=== PATIENT | male | born 1940 | race African-American/Black ===

== ENCOUNTER 2017-02-28 15:30 | Inpatient (IN) | payer MEDICAID, MEDICARE ==
[~2017-02-28] VITALS: Ht 170.2 cm; Wt 98.9 kg
[2017-02-28 15:40] VITALS: BP 148/101
--- NOTE | 2017-02-28 16:30 | Diagnostic Imaging Report ---
Indication: Altered mental status Technique: XRAY Chest 1v Comparison: None Findings: Heart is enlarged. There is extensive interstitial edema/opacification with patchy perihilar lateral airspace opacities. There is a small right pleural effusion. No definite pneumothorax. No acute osseous abnormality is seen. Impression: Cardiomegaly with interstitial and patchy bilateral airspace opacities and a small right pleural effusion. Findings may be related to CHF/fluid overload. Superimposed pneumonia should be excluded clinically.
[2017-02-28 16:31] LABS: ANION GAP 6 mmol/L (5-15); BLOOD UREA NITROGEN 41 mg/dL (7-18); CALCIUM 8.3 MG/DL (8.5-10.1); CARBON DIOXIDE 31 MMOL/L (21-32); CHLORIDE 104 MMOL/L (98-107); POTASSIUM 4.7 MMOL/L (3.5-5.1); SODIUM 141 MMOL/L (136-145)
[2017-02-28 16:32] LABS: BASOPHILS % (AUTO) 1.3 % (0.0-2.0); HEMOGLOBIN 12.8 G/DL (14.2-18.0); LYMPHOCYTES % (AUTO) 9.3 % (20.0-45.0); MEAN CORPUSCULAR VOLUME 97 FL (80-99); MONOCYTES % (AUTO) 6.5 % (1.0-10.0); NEUTROPHILS % (AUTO) 82.8 % (45.0-75.0); PLATELET COUNT 314 K/UL (150-450); RED BLOOD COUNT 4.34 M/UL (4.70-6.10); RED CELL DISTRIBUTION WIDTH 14.1 % (11.6-14.8); WHITE BLOOD COUNT 4.8 K/UL (4.8-10.8)
--- NOTE | 2017-02-28 16:33 | Emergency Room Report ---
History of Present Illness General Chief Complaint: Abnormal Labs Source: Patient, EMS Present Illness HPI [id number] BIBEMS from [facility] for "acting strange for 1 month" per residents. Hypoglycemia in the 50s on scene. Otherwise stable vitals. Patient continually jerking head to right size, twitch of whole body, but is redirectable and answering questions Denies headache, chest pain, SOB, abd pain, urinary complaints EMS doubts patient getting medication at [facility]. No Rx's with patient. States he went to doctor 3 days ago for "swelling in my feet." Doesnt know what other medical problems he has. HPI otherwise limited Allergies: Coded Allergies: No Known Allergies (Unverified , 02/28/17) Patient History Past Medical History: DM, CHF Past Surgical History: none Pertinent Family History: none Review of Systems All Other Systems: negative except mentioned in HPI Physical Exam Vital Signs Date Time Temp Pulse Resp B/P (MAP) Pulse Ox O2 Delivery O2 Flow Rate FiO2 02/28/17 15:24 98 18 148/101 98 Room Air Sp02 EP Interpretation: reviewed, normal General Appearance: normal inspection, well appearing, no apparent distress, alert, GCS 15, non-toxic, other - continuous body jerking Head: normocephalic, atraumatic Eyes: bilateral eye PERRL, bilateral eye EOMI ENT: normal ENT inspection, hearing grossly normal, normal pharynx, no angioedema, normal voice, TMs + canals normal, uvula midline, moist mucus membranes Neck: normal inspection, full range of motion, supple, thyroid normal, no meningismus, no bony tend Respiratory: normal inspection, lungs clear, normal breath sounds, no rhonchi, no respiratory distress, no retraction, no accessory muscle use, no wheezing, crackles, speaking full sentences, other - Bilateral crackles Cardiovascular #1: regular rate, rhythm, no edema, no JVD, normal capillary refill Gastrointestinal: normal inspection, normal bowel sounds, non tender, soft, no mass, no peritonitis, non-distended, no guarding, no hernia, no pulsatile mass Genitourinary: no CVA tenderness Musculoskeletal: normal inspection, back normal, normal range of motion, no calf tenderness, pelvis stable, Clark's Sign negative, other - 3+ pitting edema lower extremities Neurologic: normal inspection, alert, oriented x3, responsive, well flow operator III-XII nml as tested, motor strength/tone normal, cerebellar normal, normal gait, speech normal Psychiatric: normal inspection, judgement/insight normal, mood/affect normal, no suicidal/homicidal ideation, no delusions Skin: normal inspection, normal color, no rash Lymphatic: normal inspection, no adenopathy Procedures Critical Care Time Critical Care Time CC time 30 Critical care time endorsed for this patient for hypoglycemia, acute CHF, and ? AMS Critical care time includes review of laboratory tests, imaging, review of EMR, review of paperwork from SNF (if available), discussion with patient and family (if available), review of code status/POLS (if available). Critical care time also likely includes assessment of fluid status, stabilization of vital signs, selection and dosing of appropriate antibiotics, selection and dosing of Aspirin/Plavix/Heparin/Lovenox, discussion with PMD/ attending hospitalist/supply specialist. Critical care time does not include any procedures which are documented elsewhere in this EMR. Medical Decision Making Diagnostic Impression: Primary Impression: CHF (congestive heart failure) Qualified Codes: I50.9 - Heart failure, unspecified Additional Impression: Hypoglycemia ER Course VSS. Afebrile No focal neuro deficits to suggest CVA Hypoglycemia resolved with D50 and stayed WNL - unlikely to be on insulin or sulfonylurea Bilateral 3+ pedal edema and bilateral rales on exam CXR shows bilateral interstitial edema Rad review for "possible underling PNA" however afebrile, no cough, no URI symptoms, and no leuks on labs ECG with deep Q waves in V2-3. 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 Results EP Interpretation: yes Rate: 107 Rhythm: NSR, no PVC's, no ectopy Chest X-Ray Diagnostic Results Chest X-Ray Diagnostic Results : Chest X-Ray Ordered: Yes # of Views/Limited/Complete: 1 View Indication: Other - AMS EP Interpretation: Yes Interpretation: no consolidation, no pneumothorax, no acute cardiopulmonary disease, other - Bilateral pulm congestion Electronically Signed by: Dr Yary Lyles MD Last Vital Signs Date Time Temp Pulse Resp B/P (MAP) Pulse Ox O2 Delivery O2 Flow Rate FiO2 02/28/17 15:40 18 148/101 98 Room Air 02/28/17 15:24 98 Status: improved Disposition: ADMITTED INPATIENT Condition: Serious Referrals: NOT CHOSEN IPA/,REFERRING (PCP) YARY LYLES M.D. Feb 28, 2017 16:33
[2017-02-28 16:43] LABS: ALANINE AMINOTRANSFERASE 87 U/L (12-78); ALBUMIN 2.7 G/DL (3.4-5.0); ALBUMIN/GLOBULIN RATIO 0.5 (1.0-2.7); ALKALINE PHOSPHATASE 149 U/L (46-116); ASPARTATE AMINO TRANSFERASE 99 U/L (15-37); CKMB 43.3 NG/ML (0.0-3.6); CREATINE KINASE 663 U/L (26-308)
--- NOTE | 2017-02-28 16:52 | Diagnostic Imaging Report ---
Indication: Altered mental status Technique: Continuous helical CT scanning of the head was performed utilizing automated exposure control without intravenous contrast material. Axial and coronal reconstructions were obtained. Comparison: None CT dose: Total DLP 1411.27 mGycm; CTDI vol 70.38 mGy Findings: Limited, motion degraded exam, particularly images through the skull base, inferior frontal/temporal lobes and posterior fossa. There is no large intracranial hemorrhage, mass effect or midline shift. Ventricular, sulcal and cisternal prominence compatible with age-related atrophy. There is periventricular hypoattenuation, likely sequela of chronic microvascular ischemia. There is questionable area of vague hypoattenuation in the region of the right basal ganglia. This may be artifactual however ischemia is not entirely recommended. No depressed calvarial fracture seen. Mastoid air cells are clear. Mucosal thickening noted in the bilateral maxillary sinuses and some bilateral ethmoid air cells. Orbits grossly unremarkable.. Impression: Motion degraded exam, particularly limiting evaluation of the inferior frontal lobe, temporal lobe and posterior fossa. Acute pathologies in these regions not excluded. No large intracranial hemorrhage. No midline shift. Question vague area of hypoattenuation in the right basal ganglia which may be artifactual however ischemia is not excluded. Repeat head CT or MRI the brain recommended for better evaluation Atrophy and nonspecific periventricular hypoattenuation suggestive of chronic ischemic microvascular changes. The CT scanner at [facility] is accredited by the [employer] and the scans are performed using protocols designed to limit radiation exposure to as low as reasonably achievable to attain images of sufficient resolution adequate for diagnostic evaluation.
[2017-02-28 17:44] VITALS: BP 150/92
[2017-02-28 20:00] VITALS: BP 140/99
--- NOTE | 2017-02-28 23:10 | Infectious Diseases Prog Note ---
Assessment/Plan Problems: (1) Abscess of groin, left Assessment & Plan: will start vancomycin and cefepime empirically, recommend antifungal topical and wound care eval (2) Abscess of groin, right Assessment & Plan: management the same as above (3) HCAP (healthcare-associated pneumonia) Assessment & Plan: courtney start vancomycin and cefepime empirically , monitor CXR (4) CHF (congestive heart failure) Assessment & Plan: continue diuresis , monitor out put ant daily weight (5) Hypoglycemia Assessment & Plan: monitor glucose level avoid insulin for now Subjective Allergies: Coded Allergies: No Known Allergies (Unverified , 02/28/17) Objective Vital Signs Last 24 Hour Vital Signs Date Time Temp Pulse Resp B/P (MAP) Pulse Ox O2 Delivery O2 Flow Rate FiO2 02/28/17 21:23 87 20 100 Facial 30 02/28/17 20:00 30 02/28/17 20:00 97.6 96 20 140/99 98 Bi-pap 30 02/28/17 19:42 96 02/28/17 18:30 92 20 99 Facial 30 02/28/17 18:20 97.8 93 21 150/92 100 Bi-pap 30 02/28/17 17:44 97.8 93 21 150/92 98 Bi-pap 30 02/28/17 17:05 101 21 Bi-pap 30 02/28/17 17:05 21 98 Bi-pap 30 02/28/17 16:50 101 21 99 Facial 30 02/28/17 15:40 18 148/101 98 Room Air 02/28/17 15:24 98 18 148/101 98 Room Air Height (Feet): 5 Height (Inches): 6.00 Weight (Pounds): 170 Laboratory Tests Test 02/28/17 15:45 White Blood Count 4.8 K/UL (4.8-10.8) Red Blood Count 4.34 M/UL (4.70-6.10) L Hemoglobin 12.8 G/DL (14.2-18.0) L Hematocrit 42.0 % (42.0-52.0) Mean Corpuscular Volume 97 FL (80-99) Mean Corpuscular Hemoglobin 29.4 PG (27.0-31.0) Mean Corpuscular Hemoglobin Concent 30.4 G/DL (32.0-36.0) L Red Cell Distribution Width 14.1 % (11.6-14.8) Platelet Count 314 K/UL (150-450) Mean Platelet Volume 7.0 FL (6.5-10.1) Neutrophils (%) (Auto) 82.8 % (45.0-75.0) H Lymphocytes (%) (Auto) 9.3 % (20.0-45.0) L Monocytes (%) (Auto) 6.5 % (1.0-10.0) Eosinophils (%) (Auto) 0.0 % (0.0-3.0) Basophils (%) (Auto) 1.3 % (0.0-2.0) Sodium Level 141 MMOL/L (136-145) Potassium Level 4.7 MMOL/L (3.5-5.1) Chloride Level 104 MMOL/L (98-107) Carbon Dioxide Level 31 MMOL/L (21-32) Anion Gap 6 mmol/L (5-15) Blood Urea Nitrogen 41 mg/dL (7-18) H Creatinine 1.0 MG/DL (0.55-1.30) Estimat Glomerular Filtration Rate mL/min (>60) Glucose Level 57 MG/DL (74-106) L Calcium Level 8.3 MG/DL (8.5-10.1) L Total Bilirubin 1.0 MG/DL (0.2-1.0) Aspartate Amino Transf (AST/SGOT) 99 U/L (15-37) H Alanine Aminotransferase (ALT/SGPT) 87 U/L (12-78) H Alkaline Phosphatase 149 U/L (46-116) H Total Creatine Kinase 663 U/L (26-308) H Creatine Kinase MB 43.3 NG/ML (0.0-3.6) H Creatine Kinase MB Relative Index 6.5 Troponin I 0.298 ng/mL (0.000-0.056) Total Protein 8.1 G/DL (6.4-8.2) Albumin 2.7 G/DL (3.4-5.0) L Globulin 5.4 g/dL Albumin/Globulin Ratio 0.5 (1.0-2.7) L Current Medications Medications (Trade) Dose Ordered Sig/Vicky Route PRN Reason Start Time Stop Time Status Last Admin Dose Admin Lorazepam (Ativan 2mg/ml 1ml) 1 mg Q4H PRN IV For Anxiety 02/28/17 22:00 03/07/17 21:59 Mike Nguyen M.D. Feb 28, 2017 23:10
[2017-03-01] VITALS: BP 145/98
--- NOTE | 2017-03-01 00:04 | History and Physical ---
History of Present Illness General Date patient seen: Mar 01, 2017 Reason for Hospitalization: Abnormal Labs Present Illness Allergies: Coded Allergies: No Known Allergies (Unverified , 02/28/17) Patient History Healthcare decision maker N Resuscitation status Advanced Directive on File Physical Exam Last 24 Hour Vital Signs Date Time Temp Pulse Resp B/P (MAP) Pulse Ox O2 Delivery O2 Flow Rate FiO2 02/28/17 23:22 91 18 98 02/28/17 21:23 87 20 100 Facial 30 02/28/17 20:00 30 02/28/17 20:00 97.6 96 20 140/99 98 Bi-pap 30 02/28/17 19:42 96 02/28/17 18:30 92 20 99 Facial 30 02/28/17 18:20 97.8 93 21 150/92 100 Bi-pap 30 02/28/17 17:44 97.8 93 21 150/92 98 Bi-pap 30 02/28/17 17:05 101 21 Bi-pap 30 02/28/17 17:05 21 98 Bi-pap 30 02/28/17 16:50 101 21 99 Facial 30 02/28/17 15:40 18 148/101 98 Room Air 02/28/17 15:24 98 18 148/101 98 Room Air Laboratory Tests Test 02/28/17 15:45 02/28/17 23:15 White Blood Count 4.8 K/UL (4.8-10.8) Red Blood Count 4.34 M/UL (4.70-6.10) L Hemoglobin 12.8 G/DL (14.2-18.0) L Hematocrit 42.0 % (42.0-52.0) Mean Corpuscular Volume 97 FL (80-99) Mean Corpuscular Hemoglobin 29.4 PG (27.0-31.0) Mean Corpuscular Hemoglobin Concent 30.4 G/DL (32.0-36.0) L Red Cell Distribution Width 14.1 % (11.6-14.8) Platelet Count 314 K/UL (150-450) Mean Platelet Volume 7.0 FL (6.5-10.1) Neutrophils (%) (Auto) 82.8 % (45.0-75.0) H Lymphocytes (%) (Auto) 9.3 % (20.0-45.0) L Monocytes (%) (Auto) 6.5 % (1.0-10.0) Eosinophils (%) (Auto) 0.0 % (0.0-3.0) Basophils (%) (Auto) 1.3 % (0.0-2.0) Sodium Level 141 MMOL/L (136-145) Potassium Level 4.7 MMOL/L (3.5-5.1) Chloride Level 104 MMOL/L (98-107) Carbon Dioxide Level 31 MMOL/L (21-32) Anion Gap 6 mmol/L (5-15) Blood Urea Nitrogen 41 mg/dL (7-18) H Creatinine 1.0 MG/DL (0.55-1.30) Estimat Glomerular Filtration Rate mL/min (>60) Glucose Level 57 MG/DL (74-106) L Calcium Level 8.3 MG/DL (8.5-10.1) L Total Bilirubin 1.0 MG/DL (0.2-1.0) Aspartate Amino Transf (AST/SGOT) 99 U/L (15-37) H Alanine Aminotransferase (ALT/SGPT) 87 U/L (12-78) H Alkaline Phosphatase 149 U/L (46-116) H Total Creatine Kinase 663 U/L (26-308) H Creatine Kinase MB 43.3 NG/ML (0.0-3.6) H Creatine Kinase MB Relative Index 6.5 Troponin I 0.298 ng/mL (0.000-0.056) Total Protein 8.1 G/DL (6.4-8.2) Albumin 2.7 G/DL (3.4-5.0) L Globulin 5.4 g/dL Albumin/Globulin Ratio 0.5 (1.0-2.7) L Urine Color Pending Urine Appearance Pending Urine pH Pending Urine Specific [place] Pending Urine Protein Pending Urine Glucose (UA) Pending Urine Ketones Pending Urine Occult Blood Pending Urine Nitrite Pending Urine Bilirubin Pending Urine Urobilinogen Pending Urine Leukocyte Esterase Pending Urine Opiates Screen Pending Urine Barbiturates Screen Pending Phencyclidine (PCP) Screen Pending Urine Amphetamines Screen Pending Urine Benzodiazepines Screen Pending Urine Cocaine Screen Pending Urine Marijuana (THC) Screen Pending Height (Feet): 5 Height (Inches): 6.00 Weight (Pounds): 170 Medications Current Medications Medications (Trade) Dose Ordered Sig/Vicky Route PRN Reason Start Time Stop Time Status Last Admin Dose Admin Cefepime HCl 2 gm/ Dextrose 55 ml @ 110 mls/hr EVERY 12 HOURS IVPB 02/28/17 23:00 03/07/17 22:59 Lorazepam (Ativan 2mg/ml 1ml) 1 mg Q4H PRN IV For Anxiety 02/28/17 22:00 03/07/17 21:59 Vancomycin HCl (Vanco rx to dose) 1 ea DAILY PRN MISC Per rx protocol 02/28/17 23:00 03/30/17 22:59 Vancomycin HCl/ Dextrose 250 ml @ 125 mls/hr Q24H IVPB 02/28/17 01:00 03/05/17 00:59 JEYSON NAVAS Mar 01, 2017 00:03
[2017-03-01 00:08] LABS: APPEARANCE,URINE CLEAR; BILIRUBIN, URINE NEGATIVE (NEGATIVE); COLOR,URINE PALE YELLOW; GLUCOSE, URINE (UA) NEGATIVE (NEGATIVE); KETONES,URINE NEGATIVE (NEGATIVE); LEUKOCYTE ESTERASE ,URINE 2+ (NEGATIVE); NITRITE,URINE NEGATIVE (NEGATIVE); PH,URINE 5 (4.5-8.0); PROTEIN,URINE NEGATIVE (NEGATIVE); UROBILINOGEN,URINE NORMAL MG/DL (0.0-1.0)
[2017-03-01] MEDS ORDERED: Cefepime 2gm ONE (00:16)
[2017-03-01] MEDS: Cefepime HCl 2 GM in D5W 55 ML IVPB SCH ×3 (00:37→21:28)
[2017-03-01] MEDS: Vancomycin 1500mg IVPB SCH ×2 (02:12→02:13)
[2017-03-01 04:00] VITALS: BP 125/81
[2017-03-01 07:28] LABS: HEMATOCRIT 35.6 % (42.0-52.0); HEMOGLOBIN 11.3 G/DL (14.2-18.0); MEAN CORPUSCULAR VOLUME 97 FL (80-99); PLATELET COUNT 269 K/UL (150-450); RED BLOOD COUNT 3.68 M/UL (4.70-6.10); RED CELL DISTRIBUTION WIDTH 14.2 % (11.6-14.8); WHITE BLOOD COUNT 5.2 K/UL (4.8-10.8)
[2017-03-01 07:35] LABS: ANION GAP 2 mmol/L (5-15); BLOOD UREA NITROGEN 33 mg/dL (7-18); CALCIUM 7.3 MG/DL (8.5-10.1); CARBON DIOXIDE 32 MMOL/L (21-32); CHLORIDE 106 MMOL/L (98-107); PHOSPHORUS 4.3 MG/DL (2.5-4.9); POTASSIUM 4.5 MMOL/L (3.5-5.1); SODIUM 140 MMOL/L (136-145)
[2017-03-01 08:30] VITALS: BP_SYST 122; BP_SYST 127; BP_DIAS 82; BP_DIAS 84
[2017-03-01 12:00] VITALS: BP 141/92
[2017-03-01] MEDS: Aspirin Baby 81mg ORAL SCH (13:19)
--- NOTE | 2017-03-01 13:27 | Neurology Progress Note ---
Objective Physical Exam Last Vital Signs Date Time Temp Pulse Resp B/P (MAP) Pulse Ox O2 Delivery O2 Flow Rate FiO2 03/01/17 12:00 98 03/01/17 08:30 98.0 20 127/82 95 Room Air 03/01/17 05:07 30 Laboratory Tests Test 02/28/17 15:45 02/28/17 23:15 03/01/17 05:35 03/01/17 07:38 White Blood Count 4.8 K/UL (4.8-10.8) 5.2 K/UL (4.8-10.8) Red Blood Count 4.34 M/UL (4.70-6.10) L 3.68 M/UL (4.70-6.10) L Hemoglobin 12.8 G/DL (14.2-18.0) L 11.3 G/DL (14.2-18.0) L Hematocrit 42.0 % (42.0-52.0) 35.6 % (42.0-52.0) L Mean Corpuscular Volume 97 FL (80-99) 97 FL (80-99) Mean Corpuscular Hemoglobin 29.4 PG (27.0-31.0) 30.6 PG (27.0-31.0) Mean Corpuscular Hemoglobin Concent 30.4 G/DL (32.0-36.0) L 31.7 G/DL (32.0-36.0) L Red Cell Distribution Width 14.1 % (11.6-14.8) 14.2 % (11.6-14.8) Platelet Count 314 K/UL (150-450) 269 K/UL (150-450) Mean Platelet Volume 7.0 FL (6.5-10.1) 8.1 FL (6.5-10.1) Neutrophils (%) (Auto) 82.8 % (45.0-75.0) H % (45.0-75.0) Lymphocytes (%) (Auto) 9.3 % (20.0-45.0) L % (20.0-45.0) Monocytes (%) (Auto) 6.5 % (1.0-10.0) % (1.0-10.0) Eosinophils (%) (Auto) 0.0 % (0.0-3.0) % (0.0-3.0) Basophils (%) (Auto) 1.3 % (0.0-2.0) % (0.0-2.0) Sodium Level 141 MMOL/L (136-145) 140 MMOL/L (136-145) Potassium Level 4.7 MMOL/L (3.5-5.1) 4.5 MMOL/L (3.5-5.1) Chloride Level 104 MMOL/L (98-107) 106 MMOL/L (98-107) Carbon Dioxide Level 31 MMOL/L (21-32) 32 MMOL/L (21-32) Anion Gap 6 mmol/L (5-15) 2 mmol/L (5-15) L Blood Urea Nitrogen 41 mg/dL (7-18) H 33 mg/dL (7-18) H Creatinine 1.0 MG/DL (0.55-1.30) 1.0 MG/DL (0.55-1.30) Estimat Glomerular Filtration Rate mL/min (>60) mL/min (>60) Glucose Level 57 MG/DL (74-106) L 266 MG/DL (74-106) #H Calcium Level 8.3 MG/DL (8.5-10.1) L 7.3 MG/DL (8.5-10.1) L Total Bilirubin 1.0 MG/DL (0.2-1.0) Aspartate Amino Transf (AST/SGOT) 99 U/L (15-37) H Alanine Aminotransferase (ALT/SGPT) 87 U/L (12-78) H Alkaline Phosphatase 149 U/L (46-116) H Total Creatine Kinase 663 U/L (26-308) H Creatine Kinase MB 43.3 NG/ML (0.0-3.6) H Creatine Kinase MB Relative Index 6.5 Troponin I 0.298 ng/mL (0.000-0.056) 0.226 ng/mL (0.000-0.056) Total Protein 8.1 G/DL (6.4-8.2) Albumin 2.7 G/DL (3.4-5.0) L Globulin 5.4 g/dL Albumin/Globulin Ratio 0.5 (1.0-2.7) L Urine Color Pale yellow Urine Appearance Clear Urine pH 5 (4.5-8.0) Urine Specific [place] 1.015 (1.005-1.035) Urine Protein Negative (NEGATIVE) Urine Glucose (UA) Negative (NEGATIVE) Urine Ketones Negative (NEGATIVE) Urine Occult Blood 2+ (NEGATIVE) H Urine Nitrite Negative (NEGATIVE) Urine Bilirubin Negative (NEGATIVE) Urine Urobilinogen Normal MG/DL (0.0-1.0) Urine Leukocyte Esterase 2+ (NEGATIVE) H Urine RBC 2-4 /HPF (0 - 0) H Urine WBC 2-4 /HPF (0 - 0) Urine Squamous Epithelial Cells Occasional /LPF Urine Bacteria Occasional /HPF (NONE) Urine Opiates Screen Negative (NEGATIVE) Urine Barbiturates Screen Negative (NEGATIVE) Phencyclidine (PCP) Screen Negative (NEGATIVE) Urine Amphetamines Screen Negative (NEGATIVE) Urine Benzodiazepines Screen Negative (NEGATIVE) Urine Cocaine Screen Negative (NEGATIVE) Urine Marijuana (THC) Screen Negative (NEGATIVE) Differential Total Cells Counted 100 Neutrophils % (Manual) 85 % (45-75) H Lymphocytes % (Manual) 8 % (20-45) L Monocytes % (Manual) 7 % (1-10) Eosinophils % (Manual) 0 % (0-3) Basophils % (Manual) 0 % (0-2) Band Neutrophils 0 % (0-8) Platelet Estimate Adequate Platelet Morphology Normal Hypochromasia 1+ Anisocytosis 1+ Phosphorus Level 4.3 MG/DL (2.5-4.9) Magnesium Level 1.8 MG/DL (1.8-2.4) Arterial Blood pH 7.420 (7.350-7.450) Arterial Blood Partial Pressure CO2 46.8 mmHg (35.0-45.0) H Arterial Blood Partial Pressure O2 75.5 mmHg (75.0-100.0) Arterial Blood HCO3 29.7 mmol/L (22.0-26.0) H Arterial Blood Oxygen Saturation 94.7 % (92.0-98.0) Arterial Blood Base Excess 4.5 Saul Test Positive Impression/Recommendations Recommendations #[id number] FANNIE YUNG Mar 01, 2017 13:27
--- NOTE | 2017-03-01 13:43 | Infectious Diseases Prog Note ---
Assessment/Plan Problems: (1) Abscess of groin, left Assessment & Plan: continue vancomycin and cefepime empirically, with antifungal topical , will add metronidazol to cover anaerobes , continue local wound care , as per wound care service (2) Abscess of groin, right Assessment & Plan: management the same as above (3) HCAP (healthcare-associated pneumonia) Assessment & Plan: on vancomycin and cefepime empirically , monitor CXR (4) CHF (congestive heart failure) Assessment & Plan: continue diuresis , monitor out put ant daily weight (5) Hypoglycemia Assessment & Plan: monitor glucose level avoid insulin for now Subjective Constitutional: Reports: no symptoms HEENT: Reports: no symptoms Respiratory: Reports: productive cough Breasts: Reports: no symptoms Cardiovascular: Reports: no symptoms Gastrointestinal/Abdominal: Reports: no symptoms Genitourinary: Reports: no symptoms Neurologic: Reports: no symptoms, other - jerking movements of the head and body Psychiatric: Reports: no symptoms Skin: Reports: rash, ulcer, other - abscesses on both groins Endocrine: Reports: no symptoms Hematologic: Reports: no symptoms Allergies: Coded Allergies: No Known Allergies (Unverified , 02/28/17) Objective Vital Signs Last 24 Hour Vital Signs Date Time Temp Pulse Resp B/P (MAP) Pulse Ox O2 Delivery O2 Flow Rate FiO2 03/01/17 12:00 98 03/01/17 08:30 98.0 98 20 127/82 95 Room Air 03/01/17 08:05 95 03/01/17 05:07 90 20 100 Facial 30 03/01/17 04:00 97.8 89 20 125/81 99 Bi-pap 30 03/01/17 04:00 88 03/01/17 04:00 30 03/01/17 02:58 90 16 100 Facial 30 03/01/17 01:17 90 17 100 Facial 30 03/01/17 00:00 97.3 91 20 145/98 98 Bi-pap 30 03/01/17 00:00 92 02/28/17 23:22 91 18 98 02/28/17 21:23 87 20 100 Facial 30 02/28/17 20:00 30 02/28/17 20:00 97.6 96 20 140/99 98 Bi-pap 30 02/28/17 19:42 96 02/28/17 18:30 92 20 99 Facial 30 02/28/17 18:20 97.8 93 21 150/92 100 Bi-pap 30 02/28/17 17:44 97.8 93 21 150/92 98 Bi-pap 30 02/28/17 17:05 101 21 Bi-pap 30 02/28/17 17:05 21 98 Bi-pap 30 02/28/17 16:50 101 21 99 Facial 30 02/28/17 15:40 18 148/101 98 Room Air 02/28/17 15:24 98 18 148/101 98 Room Air Height (Feet): 5 Height (Inches): 7.00 Weight (Pounds): 171 General Appearance: WD/WN, no acute distress HEENT: normocephalic, atraumatic, anicteric, mucous membranes moist, PERRL, EOMI, pharynx normal Respiratory/Chest: chest wall non-tender, no respiratory distress, no accessory muscle use, decreased breath sounds, crackles/rales Cardiovascular: normal peripheral pulses, normal rate, regular rhythm, no gallop/murmur, no JVD Abdomen: normal bowel sounds, soft, non tender, no organomegaly, non distended , no mass, no scars Extremities: no cyanosis, no clubbing Skin: no rash, no lesions, no ulcers Neurologic/Psychiatric: alert, responsive Laboratory Tests Test 02/28/17 15:45 02/28/17 23:15 03/01/17 05:35 03/01/17 07:38 White Blood Count 4.8 K/UL (4.8-10.8) 5.2 K/UL (4.8-10.8) Red Blood Count 4.34 M/UL (4.70-6.10) L 3.68 M/UL (4.70-6.10) L Hemoglobin 12.8 G/DL (14.2-18.0) L 11.3 G/DL (14.2-18.0) L Hematocrit 42.0 % (42.0-52.0) 35.6 % (42.0-52.0) L Mean Corpuscular Volume 97 FL (80-99) 97 FL (80-99) Mean Corpuscular Hemoglobin 29.4 PG (27.0-31.0) 30.6 PG (27.0-31.0) Mean Corpuscular Hemoglobin Concent 30.4 G/DL (32.0-36.0) L 31.7 G/DL (32.0-36.0) L Red Cell Distribution Width 14.1 % (11.6-14.8) 14.2 % (11.6-14.8) Platelet Count 314 K/UL (150-450) 269 K/UL (150-450) Mean Platelet Volume 7.0 FL (6.5-10.1) 8.1 FL (6.5-10.1) Neutrophils (%) (Auto) 82.8 % (45.0-75.0) H % (45.0-75.0) Lymphocytes (%) (Auto) 9.3 % (20.0-45.0) L % (20.0-45.0) Monocytes (%) (Auto) 6.5 % (1.0-10.0) % (1.0-10.0) Eosinophils (%) (Auto) 0.0 % (0.0-3.0) % (0.0-3.0) Basophils (%) (Auto) 1.3 % (0.0-2.0) % (0.0-2.0) Sodium Level 141 MMOL/L (136-145) 140 MMOL/L (136-145) Potassium Level 4.7 MMOL/L (3.5-5.1) 4.5 MMOL/L (3.5-5.1) Chloride Level 104 MMOL/L (98-107) 106 MMOL/L (98-107) Carbon Dioxide Level 31 MMOL/L (21-32) 32 MMOL/L (21-32) Anion Gap 6 mmol/L (5-15) 2 mmol/L (5-15) L Blood Urea Nitrogen 41 mg/dL (7-18) H 33 mg/dL (7-18) H Creatinine 1.0 MG/DL (0.55-1.30) 1.0 MG/DL (0.55-1.30) Estimat Glomerular Filtration Rate mL/min (>60) mL/min (>60) Glucose Level 57 MG/DL (74-106) L 266 MG/DL (74-106) #H Calcium Level 8.3 MG/DL (8.5-10.1) L 7.3 MG/DL (8.5-10.1) L Total Bilirubin 1.0 MG/DL (0.2-1.0) Aspartate Amino Transf (AST/SGOT) 99 U/L (15-37) H Alanine Aminotransferase (ALT/SGPT) 87 U/L (12-78) H Alkaline Phosphatase 149 U/L (46-116) H Total Creatine Kinase 663 U/L (26-308) H Creatine Kinase MB 43.3 NG/ML (0.0-3.6) H Creatine Kinase MB Relative Index 6.5 Troponin I 0.298 ng/mL (0.000-0.056) 0.226 ng/mL (0.000-0.056) Total Protein 8.1 G/DL (6.4-8.2) Albumin 2.7 G/DL (3.4-5.0) L Globulin 5.4 g/dL Albumin/Globulin Ratio 0.5 (1.0-2.7) L Urine Color Pale yellow Urine Appearance Clear Urine pH 5 (4.5-8.0) Urine Specific [place] 1.015 (1.005-1.035) Urine Protein Negative (NEGATIVE) Urine Glucose (UA) Negative (NEGATIVE) Urine Ketones Negative (NEGATIVE) Urine Occult Blood 2+ (NEGATIVE) H Urine Nitrite Negative (NEGATIVE) Urine Bilirubin Negative (NEGATIVE) Urine Urobilinogen Normal MG/DL (0.0-1.0) Urine Leukocyte Esterase 2+ (NEGATIVE) H Urine RBC 2-4 /HPF (0 - 0) H Urine WBC 2-4 /HPF (0 - 0) Urine Squamous Epithelial Cells Occasional /LPF Urine Bacteria Occasional /HPF (NONE) Urine Opiates Screen Negative (NEGATIVE) Urine Barbiturates Screen Negative (NEGATIVE) Phencyclidine (PCP) Screen Negative (NEGATIVE) Urine Amphetamines Screen Negative (NEGATIVE) Urine Benzodiazepines Screen Negative (NEGATIVE) Urine Cocaine Screen Negative (NEGATIVE) Urine Marijuana (THC) Screen Negative (NEGATIVE) Differential Total Cells Counted 100 Neutrophils % (Manual) 85 % (45-75) H Lymphocytes % (Manual) 8 % (20-45) L Monocytes % (Manual) 7 % (1-10) Eosinophils % (Manual) 0 % (0-3) Basophils % (Manual) 0 % (0-2) Band Neutrophils 0 % (0-8) Platelet Estimate Adequate Platelet Morphology Normal Hypochromasia 1+ Anisocytosis 1+ Phosphorus Level 4.3 MG/DL (2.5-4.9) Magnesium Level 1.8 MG/DL (1.8-2.4) Arterial Blood pH 7.420 (7.350-7.450) Arterial Blood Partial Pressure CO2 46.8 mmHg (35.0-45.0) H Arterial Blood Partial Pressure O2 75.5 mmHg (75.0-100.0) Arterial Blood HCO3 29.7 mmol/L (22.0-26.0) H Arterial Blood Oxygen Saturation 94.7 % (92.0-98.0) Arterial Blood Base Excess 4.5 Saul Test Positive Current Medications Medications (Trade) Dose Ordered Sig/Vicky Route PRN Reason Start Time Stop Time Status Last Admin Dose Admin Aspirin (ASA) 81 mg DAILY ORAL 03/01/17 13:15 03/31/17 13:14 03/01/17 13:19 Cefepime HCl 2 gm/ Dextrose 55 ml @ 110 mls/hr EVERY 12 HOURS IVPB 02/28/17 23:00 03/07/17 22:59 03/01/17 09:04 Furosemide (Lasix) 40 mg EVERY 12 HOURS IV 03/01/17 13:15 03/31/17 13:14 03/01/17 13:20 Lorazepam (Ativan 2mg/ml 1ml) 1 mg Q4H PRN IV For Anxiety 02/28/17 22:00 03/07/17 21:59 Vancomycin HCl (Vanco rx to dose) 1 ea DAILY PRN MISC Per rx protocol 02/28/17 23:00 03/30/17 22:59 Vancomycin HCl/ Dextrose 250 ml @ 125 mls/hr Q24H IVPB 02/28/17 01:00 03/05/17 00:59 03/01/17 02:13 Mike Nguyen M.D. Mar 01, 2017 13:43
[2017-03-01] MEDS: metroNIDAZOLE 500mg tab ORAL SCH ×2 (14:05→21:28)
[2017-03-01 16:00] VITALS: BP 121/80
--- NOTE | 2017-03-01 17:15 | Progress Note ---
DATE: 03/01/2017 CARDIOLOGY PROGRESS NOTE SUBJECTIVE: The patient is difficult to understand due to his stutter, but he denies any chest pain. He states he has no lung problems. He has been on BiPAP, however, overnight. He does have coughing and congestion. OBJECTIVE: VITAL SIGNS: Blood pressure 125/81, pulse 89, respirations 20. LUNGS: Coarse breath sounds with rhonchi and rales at the bases bilaterally. HEART: Regular rhythm and rate. Normal S1 and S2 with a 1/6 systolic heart murmur at the lower left sternal border. ABDOMEN: Soft. EXTREMITIES: With 3+ edema. LABORATORY AND DIAGNOSTIC DATA: Chest x-ray on admission revealed pulmonary venous congestion with small pleural effusions. Troponin level on admission yesterday was 0.298, now at 0.226. IMPRESSION: 1. Acute myocardial ischemia. 2. 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 3. Chronic obstructive pulmonary disease. 4. Moderate protein-calorie malnutrition. 5. Prerenal azotemia. 6. Metabolic encephalopathy. 7. Right bilateral groin abscesses. 8. Hypertensive heart disease now with better blood pressure control. PLAN: 1. Antimicrobials. 2. Bronchodilators. 3. Skin care. 4. IV diuretic therapy. 5. Echocardiogram for assessment of left ventricular function. 6. Titration of antihypertensive regimen based on clinical parameters. 7. Continue aspirin prophylaxis. 8. Reassess for antianginal therapy based on clinical parameters. Due to lung disease, we will be avoiding beta-blockers at this time. Rehan Grove M.D. DR: ROCAEL JOB#: [id number] CC:
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
[2017-03-01 20:00] VITALS: BP 140/77
--- NOTE | 2017-03-01 20:15 | Consultation ---
DATE OF CONSULTATION: 03/01/2017 INFECTIOUS DISEASES CONSULTATION CONSULTING PHYSICIAN: Mike Nguyen M.D. ATTENDING/REQUESTING PHYSICIAN: Phillip Galaviz M.D. REASON FOR CONSULTATION: Bilateral groin skin infection with abscesses and penile infection with pneumonia, recommendation for antibiotics treatment and further management. HISTORY OF PRESENT ILLNESS: The patient is a 76-year-old male, who lives at [facility] for a while and was brought in to [facility] for acting strange for one month per the resident over there. The patient was found to be hypoglycemic with blood glucose in the range of 50. He also had continuously jerking head movement to the right side and twitching of whole body, so he was sent to the emergency room for further evaluation and management. The patient had no symptom with headache, chest pain, shortness of breath, abdominal pain, or any urinary complaint. He was not getting any medication treatment at [facility]. The patient was found to have bilateral groin severe skin inflammation, infection, and possible abscesses in both sides and penile infection. His chest x-ray showed bilateral infiltration suspicious for superimposed pneumonia, so he received IV antibiotics in the emergency room and I was consulted by the primary provider for antibiotics treatment and further management. As of note, the patient is poor historian, cannot provide good history in detail. History was mainly obtained from the medical record and nursing staff. PAST MEDICAL HISTORY: Significant for diabetes and congestive heart failure. PAST SURGICAL HISTORY: Unknown. MEDICATIONS: The patient received vancomycin, Lasix, and aspirin in the emergency room. ALLERGIES: No known drug allergy. SOCIAL HISTORY: The patient lives at [facility]. No recent drugs, tobacco, or alcohol. FAMILY HISTORY: Unable to obtain. REVIEW OF SYSTEMS: Unable to obtain at this point. The patient is very poor historian. PHYSICAL EXAMINATION: VITAL SIGNS: Temperature 97.8 degrees, pulse 93, respirations 21, blood pressure 150/92, and saturation 100% on BiPAP with 30% of FiO2. GENERAL: An elderly male up in bed with jerking movement of the head and the whole body, seems comfortable, not in acute distress. HEENT: Normocephalic, atraumatic. Pupils reactive to light equally. Moist oral mucosa. No exudate. NECK: Supple. No lymphadenopathy. CARDIOVASCULAR: Regular rate and rhythm. No murmur or gallop. LUNGS: He had diminished breathing sounds with crackles at the bases. Poor air entry. Normal breathing effort. ABDOMEN: Soft, obese, nontender, nondistended. Positive bowel sounds. No hepatosplenomegaly or ascites. EXTREMITIES: No edema or cyanosis. SKIN: Groins, he had bilateral skin inflammation with cellulitis and blisters. He also had penile infection with wound ulcer. LABORATORY AND DIAGNOSTIC DATA: Laboratories showed white count of 4.8, hemoglobin of 12.8, and platelet count of 314,000. BUN of 33 and creatinine of 1. AST 99, ALT of 87. Urinalysis showed negative nitrite, +2 leukocyte esterase, and WBC 2-4 with occasional urine bacteria. Imaging, chest x-ray showed cardiomegaly with interstitial and patchy bilateral airspace opacity and small right pleural effusion, finding may be related to CHF, superimposed pneumonia should be excluded clinically. Head CT scan showed motion-degraded exam particularly limiting evaluation of the inferior frontal lobe, temporal lobe, and posterior fossa, acute pathology in these regions not excluded. No large intracranial hemorrhage. ASSESSMENT AND RECOMMENDATION: 1. Abscess of the groins with cellulitis. We will start the patient on vancomycin and cefepime empiric coverage. Recommend antifungal topical and wound care service for local wound care. Keep area dry and clean. Avoid moisture. 2. Healthcare-acquired pneumonia with bilateral patchy infiltration. The patient will be on vancomycin and cefepime and we will add Flagyl for anaerobic coverage. Monitor chest x-ray. 3. Congestive heart failure, possible exacerbation. May need diuresis. Monitor urine output and daily weight. 4. Hypoglycemia. Monitor glucose level. Avoid insulin for now. Recommend endocrinology evaluation. Thank you for the consult. Infectious diseases will continue to follow. Mike Nguyen M.D. DR: Consuelo JOB#: [id number] CC:
--- NOTE | 2017-03-01 23:04 | Nephrology Progress Note ---
Assessment/Plan Problem List: (1) Abscess of groin, left (2) Abscess of groin, right (3) HCAP (healthcare-associated pneumonia) (4) Azotemia (5) Altered mental status (6) CHF (congestive heart failure) (7) Hypoglycemia Plan abx per ID. Wound care. Cardio following. cont current mgmt. Subjective Subjective Was on BiPAP overnight. Better now. Objective Objective Last 24 Hour Vital Signs Date Time Temp Pulse Resp B/P (MAP) Pulse Ox O2 Delivery O2 Flow Rate FiO2 03/01/17 21:05 93 Room Air 21 03/01/17 20:14 93 18 Venturi Mask 30 03/01/17 20:00 98.4 86 18 140/77 100 Room Air 03/01/17 16:00 98.2 101 20 121/80 94 Room Air 03/01/17 16:00 100 03/01/17 12:00 96.5 101 22 141/92 97 Room Air 03/01/17 12:00 98 03/01/17 08:30 98.0 98 20 127/82 95 Room Air 03/01/17 08:05 95 03/01/17 06:48 96 18 Venturi Mask 30 03/01/17 05:07 90 20 100 Facial 30 03/01/17 04:00 97.8 89 20 125/81 99 Bi-pap 30 03/01/17 04:00 88 03/01/17 04:00 30 03/01/17 02:58 90 16 100 Facial 30 03/01/17 01:17 90 17 100 Facial 30 03/01/17 00:00 97.3 91 20 145/98 98 Bi-pap 30 03/01/17 00:00 92 02/28/17 23:22 91 18 98 Intake and Output 02/28/17 03/01/17 19:00 07:00 Intake Total 655 ml Output Total 350 ml Balance 305 ml Intake Oral 350 ml IV Total 305 ml Output Urine Total 350 ml # Voids 1 2 Laboratory Tests 02/28/17 23:15: Urine Color Pale yellow, Urine Appearance Clear, Urine pH 5, Urine Specific [place] 1.015, Urine Protein Negative, Urine Glucose (UA) Negative, Urine Ketones Negative, Urine Occult Blood 2+H, Urine Nitrite Negative, Urine Bilirubin Negative, Urine Urobilinogen Normal, Urine Leukocyte Esterase 2+H, Urine RBC 2-4H, Urine WBC 2-4, Urine Squamous Epithelial Cells Occasional, Urine Bacteria Occasional, Urine Opiates Screen Negative, Urine Barbiturates Screen Negative, Phencyclidine (PCP) Screen Negative, Urine Amphetamines Screen Negative, Urine Benzodiazepines Screen Negative, Urine Cocaine Screen Negative, Urine Marijuana (THC) Screen Negative 03/01/17 05:35: White Blood Count 5.2, Red Blood Count 3.68L, Hemoglobin 11.3L, Hematocrit 35.6L , Mean Corpuscular Volume 97, Mean Corpuscular Hemoglobin 30.6, Mean Corpuscular Hemoglobin Concent 31.7L, Red Cell Distribution Width 14.2, Platelet Count 269, Mean Platelet Volume 8.1, Neutrophils (%) (Auto) , Lymphocytes (%) (Auto) , Monocytes (%) (Auto) , Eosinophils (%) (Auto) , Basophils (%) (Auto) , Differential Total Cells Counted 100, Neutrophils % ( Manual) 85H, Lymphocytes % (Manual) 8L, Monocytes % (Manual) 7, Eosinophils % ( Manual) 0, Basophils % (Manual) 0, Band Neutrophils 0, Platelet Estimate Adequate, Platelet Morphology Normal, Hypochromasia 1+, Anisocytosis 1+, Sodium Level 140, Potassium Level 4.5, Chloride Level 106, Carbon Dioxide Level 32, Anion Gap 2L, Blood Urea Nitrogen 33H, Creatinine 1.0, Estimat Glomerular Filtration Rate , Glucose Level 266#H, Calcium Level 7.3L, Phosphorus Level 4.3 , Magnesium Level 1.8, Troponin I 0.226H 03/01/17 07:38: Arterial Blood pH 7.420, Arterial Blood Partial Pressure CO2 46.8H, Arterial Blood Partial Pressure O2 75.5, Arterial Blood HCO3 29.7H, Arterial Blood Oxygen Saturation 94.7, Arterial Blood Base Excess 4.5, Saul Test Positive Height (Feet): 5 Height (Inches): 7.00 Weight (Pounds): 171 General Appearance: no apparent distress Cardiovascular: normal rate, regular rhythm Respiratory/Chest: decreased breath sounds Abdomen: non tender, soft PEDROJEYSON PERLA Mar 01, 2017 23:04
[2017-03-02] VITALS: BP 119/70
[2017-03-02] MEDS: Vancomycin 1500mg IVPB SCH (01:42)
[2017-03-02 04:00] VITALS: BP 125/66
--- NOTE | 2017-03-02 05:00 | Consultation ---
DATE OF CONSULTATION: 03/01/2017 NEUROLOGICAL CONSULTATION CONSULTING PHYSICIAN: Rigo Rodrigez M.D. ATTENDING/REQUESTING PHYSICIAN: Phillip Galaviz M.D. HISTORY OF PRESENT ILLNESS: This is a 76-year-old man seen in neurological consultation to evaluate the new changes in mental status. Apparently, the patient is a resident of [facility] and was described as acting strange in the last month. Paramedics were called to the scene. Blood sugar was down to 50s. The patient noted to have continuous involuntary movements, but had no specific complaint. He was brought to this facility. Imaging studies were obtained including CT of the brain, which was motion-degraded, with atrophy and nonspecific periventricular hypoattenuation suggestive for chronic ischemic microvascular changes, but there is no evidence of acute abnormalities detected. His chest x-ray, cardiomegaly with interstitial and patchy bilateral airspace opacity and small right pleural effusion related to CHF, fluid overload, although superimposed pneumonia should be excluded. Infectious diseases assessment was obtained. Discussed presence of bilateral groin abscess and pneumonia. The patient was started with vancomycin, cefepime, and antifungal topical wound care evaluation. Laboratory studies included CBC study with hemoglobin 12.8 and hematocrit 42.0. Chemistry panel abnormal with AST 99, ALT 87. 663 with CK-MB 43.3 and troponin 0.298. Blood sugar 57 on admission, today 266. BUN initially 41, now 33. Low albumin 2.7. EKG with normal sinus rhythm. No PVCs. No ectopies. The patient was placed on BiPAP, given aspirin, D50 infusion. His mental status appears to be improved following correction of blood sugar. Following admission until present, he appears stabilized. PAST MEDICAL HISTORY: The patient has history of involuntary "jerking" of upper and lower extremities, history of CHF, history of mental status abnormalities, urinary incontinence, penile erosion, and COPD. MEDICATIONS: Treatment, the patient is unable to recall medications he was taking and reconciled medications not available. SOCIAL HISTORY: Resident of a [facility]. FAMILY HISTORY: Unavailable. REVIEW OF SYMPTOMS: The patient indicates generalized weakness, but denies headache or dizziness. No chest pain. No palpitation. Admitted to having involuntary jerking, but unable to clarify since when. Admits to urinary incontinence. PHYSICAL EXAMINATION: GENERAL: A well-developed, somewhat cachectic, ill-appearing man, not in acute distress, lying in bed, watching TV. MUSCULOSKELETAL: He has continuous evidence of choreoathetosis with head and neck involuntary movements as well as upper and lower extremities and torso. There is 3+ edema of both lower extremities above the knees. Peripheral pulses 1+, symmetric. Unable to test dorsalis pedis. MENTAL STATUS: He is alert. His speech is fluent, but it is very dysarthric, slurred, and hard to understand. He has poor memory. He is unable to provide with history, forgetful, unable to give the address, place, but follows simple commands. CRANIAL NERVE II: Pupils both responding to light and accommodation. Extraocular movements intact. No nystagmus. CRANIAL NERVE V: Normal corneal responses. CRANIAL NERVE VII: No facial asymmetry. CRANIAL NERVE VIII: Normal hearing. CRANIAL NERVES IX THROUGH XII: Tongue is in midline. Symmetric palate elevation. Normal swallowing. MOTOR: Revealed continuous dyskinesia of both upper and lower extremities, able to lift arms against gravity, able to lift legs against gravity. Strength is 5/5 in both arms and 3/5 in both lower extremities. Deep tendon reflexes depressed bilaterally. Plantar responses mute. SENSORY: Inconsistent response with decreased pin sensation in both legs. GAIT: Not tested. IMPRESSION: 1. This is a 76-year-old man with evidence of choreoathetosis, unknown etiology, rule out Moraga chorea, rule out drug-induced extrapyramidal syndrome. 2. Cognitive loss, probably vascular dementia. 3. Diabetes, with episodes of hypoglycemia. 4. Chronic obstructive pulmonary disease. 5. Congestive heart failure, rule out deep vein thrombosis in lower extremities. RECOMMENDATION: 1. Venous duplex of both lower extremities. 2. We will obtain MRI of the brain without contrast under sedation. 3. Laboratory work to include B12, folate, thyroid function, LUIS, sedimentation rate, lipid panels. 4. Check ammonia level. 5. Re-evaluate abnormal transaminases. 6. Address issue of underlying infection as per infectious diseases. 7. I discussed the patient's status with cardiology with appropriate tests pending. We will follow with you. Thank you for allowing me to see this interesting patient in neurological consultation. Rigo Rodrigez M.D. DR: TOD JOB#: [id number] CC:
[2017-03-02 05:20] LABS: ALANINE AMINOTRANSFERASE 60 U/L (12-78); ALBUMIN/GLOBULIN RATIO 0.5 (1.0-2.7); ALKALINE PHOSPHATASE 115 U/L (46-116); ANION GAP 5 mmol/L (5-15); ASPARTATE AMINO TRANSFERASE 67 U/L (15-37); BILIRUBIN,TOTAL 0.9 MG/DL (0.2-1.0); BLOOD UREA NITROGEN 31 mg/dL (7-18); CALCIUM 7.2 MG/DL (8.5-10.1); CARBON DIOXIDE 32 MMOL/L (21-32); CHLORIDE 103 MMOL/L (98-107); CREATININE 0.9 MG/DL (0.55-1.30); POTASSIUM 3.5 MMOL/L (3.5-5.1); SODIUM 140 MMOL/L (136-145)
[2017-03-02] MEDS: metroNIDAZOLE 500mg tab ORAL SCH ×3 (05:28→21:00)
[2017-03-02 08:00] VITALS: BP 125/69
--- NOTE | 2017-03-02 08:39 | Pulmonology Progress Note ---
Assessment/Plan Assessment/Plan IMPRESSION: 1. Acute myocardial ischemia. 2. 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 3. Chronic obstructive pulmonary disease. 4. Moderate protein-calorie malnutrition. 5. Prerenal azotemia. 6. Metabolic encephalopathy. 7. Right bilateral groin abscesses. 8. Hypertensive heart disease now with better blood pressure control. PLAN: 1. Antimicrobials. 2. Bronchodilators. 3. Skin care. 4. IV diuretic therapy. 5. Echocardiogram for assessment of left ventricular function. 6. Titration of antihypertensive regimen based on clinical parameters. 7. Continue aspirin prophylaxis. 8. Reassess for antianginal therapy based on clinical parameters. Due to lung disease, we will be avoiding beta-blockers at this time. Subjective Interval Events: No new events Constitutional: Reports: no symptoms HEENT: Repors: no symptoms Respiratory: Reports: no symptoms Cardiovascular: Reports: no symptoms Allergies: Coded Allergies: No Known Allergies (Unverified , 02/28/17) Objective Last 24 Hour Vital Signs Date Time Temp Pulse Resp B/P (MAP) Pulse Ox O2 Delivery O2 Flow Rate FiO2 03/02/17 06:52 94 Room Air 21 03/02/17 06:52 96 18 Venturi Mask 30 03/02/17 04:00 98.2 89 18 125/66 98 Room Air 03/02/17 04:00 103 03/02/17 00:00 98.1 90 18 119/70 99 Room Air 03/02/17 00:00 105 03/01/17 21:05 93 Room Air 21 03/01/17 20:14 93 18 Venturi Mask 30 03/01/17 20:00 98.4 86 18 140/77 100 Room Air 03/01/17 20:00 97 03/01/17 16:00 98.2 101 20 121/80 94 Room Air 03/01/17 16:00 100 03/01/17 12:00 96.5 101 22 141/92 97 Room Air 03/01/17 12:00 98 Intake and Output 03/01/17 03/02/17 19:00 07:00 Intake Total 655 ml 1505 ml Output Total 2000 ml 1800 ml Balance -1345 ml -295 ml Intake Oral 600 ml 1200 ml IV Total 55 ml 305 ml Output Urine Total 2000 ml 1800 ml General Appearance: no acute distress HEENT: normocephalic Respiratory/Chest: chest wall non-tender, lungs clear Cardiovascular: normal peripheral pulses, normal rate Microbiology Date/Time Source Procedure Growth Status 03/01/17 05:20 Blood Blood Culture - Preliminary NO GROWTH AFTER 24 HOURS Resulted 03/01/17 05:15 Blood Blood Culture - Preliminary NO GROWTH AFTER 24 HOURS Resulted Laboratory Tests 03/02/17 03:30: Sodium Level 140, Potassium Level 3.5, Chloride Level 103, Carbon Dioxide Level 32, Anion Gap 5, Blood Urea Nitrogen 31H, Creatinine 0.9, Estimat Glomerular Filtration Rate , Glucose Level 116#H, Calcium Level 7.2L, Total Bilirubin 0.9, Aspartate Amino Transf (AST/SGOT) 67H, Alanine Aminotransferase (ALT/SGPT) 60, Alkaline Phosphatase 115, Troponin I 0.222H, Pro-B-Type Natriuretic Peptide 52899Y, Total Protein 6.3L, Albumin 2.0L, Globulin 4.3, Albumin/Globulin Ratio 0.5L Current Medications Medications (Trade) Dose Ordered Sig/Vicky Route PRN Reason Start Time Stop Time Status Last Admin Dose Admin Aspirin (ASA) 81 mg DAILY ORAL 03/01/17 13:15 03/31/17 13:14 03/01/17 13:19 Cefepime HCl 2 gm/ Dextrose 55 ml @ 110 mls/hr EVERY 12 HOURS IVPB 02/28/17 23:00 03/07/17 22:59 03/01/17 21:28 Clotrimazole (Lotrimin) 1 applic EVERY 12 HOURS TOPIC 03/01/17 21:00 03/31/17 20:59 03/01/17 21:28 Furosemide (Lasix) 40 mg EVERY 12 HOURS IV 03/01/17 13:15 03/31/17 13:14 03/01/17 21:28 Lorazepam (Ativan 2mg/ml 1ml) 1 mg Q4H PRN IV For Anxiety 02/28/17 22:00 03/07/17 21:59 Metronidazole (Flagyl) 500 mg Q8HR ORAL 03/01/17 14:00 03/08/17 13:59 03/02/17 05:28 Vancomycin HCl (Vanco rx to dose) 1 ea DAILY PRN MISC Per rx protocol 02/28/17 23:00 03/30/17 22:59 Vancomycin HCl/ Dextrose 250 ml @ 125 mls/hr Q24H IVPB 02/28/17 01:00 03/05/17 00:59 03/02/17 01:42 López Schofield MD Mar 02, 2017 08:39
[2017-03-02] MEDS: Aspirin Baby 81mg ORAL SCH (08:45)
[2017-03-02] MEDS: Cefepime HCl 2 GM in D5W 55 ML IVPB SCH ×2 (08:45→21:00)
[2017-03-02] MEDS ORDERED: Tubing IV Secondary IV ONE (10:44)
[2017-03-02 12:00] VITALS: BP 124/53
--- NOTE | 2017-03-02 15:00 | Cardiology Report ---
APPROVED REPORT EKG Measurement Heart [id number] Normal sinus rhythm Possible Left atrial enlargement Left anterior fascicular block Anteroseptal infarct, age undetermined Abnormal ECG
--- NOTE | 2017-03-02 15:08 | Cardiology Report ---
APPROVED REPORT EKG Measurement Heart [id number] Sinus rhythm with premature ventricular complexes or fusion complexes Possible Left atrial enlargement Left axis deviation Nonspecific intraventricular block Cannot rule out Anteroseptal infarct, age undetermined Abnormal ECG
[2017-03-02 16:00] VITALS: BP 118/87
--- NOTE | 2017-03-02 17:25 | Infectious Diseases Prog Note ---
Assessment/Plan Problems: (1) Abscess of groin, left Assessment & Plan: continue vancomycin , cefepime and metronidazol empirically , with antifungal topical , continue local wound care , as per wound care service (2) Abscess of groin, right Assessment & Plan: management the same as above (3) HCAP (healthcare-associated pneumonia) Assessment & Plan: on vancomycin and cefepime empirically , monitor CXR (4) CHF (congestive heart failure) Assessment & Plan: continue diuresis , monitor out put ant daily weight (5) Hypoglycemia Assessment & Plan: monitor glucose level avoid insulin for now Subjective ROS Limited/Unobtainable: Yes Allergies: Coded Allergies: No Known Allergies (Unverified , 02/28/17) Subjective he was up in bed alert, with jerking movements of the head and the shoulders, no fever or chills, no cough or SOB Objective Vital Signs Last 24 Hour Vital Signs Date Time Temp Pulse Resp B/P (MAP) Pulse Ox O2 Delivery O2 Flow Rate FiO2 03/02/17 16:00 98.0 86 21 118/87 94 Room Air 03/02/17 12:00 97.5 95 21 124/53 94 Room Air 03/02/17 11:49 87 03/02/17 08:00 97.5 102 22 125/69 92 Room Air 03/02/17 08:00 101 03/02/17 06:52 94 Room Air 21 03/02/17 06:52 96 18 Venturi Mask 30 03/02/17 04:00 98.2 89 18 125/66 98 Room Air 03/02/17 04:00 103 03/02/17 00:00 98.1 90 18 119/70 99 Room Air 03/02/17 00:00 105 03/01/17 21:05 93 Room Air 21 03/01/17 20:14 93 18 Venturi Mask 30 03/01/17 20:00 98.4 86 18 140/77 100 Room Air 03/01/17 20:00 97 Height (Feet): 5 Height (Inches): 7.00 Weight (Pounds): 171 General Appearance: WD/WN, no acute distress HEENT: normocephalic, atraumatic, anicteric, mucous membranes moist, PERRL Respiratory/Chest: chest wall non-tender, lungs clear, normal breath sounds, no respiratory distress, no accessory muscle use Cardiovascular: normal peripheral pulses, normal rate, regular rhythm, no gallop/murmur, no JVD Abdomen: normal bowel sounds, soft, non tender, no organomegaly, non distended , no mass, no scars Extremities: no cyanosis, no clubbing Skin: no lesions, rash, ulcers Neurologic/Psychiatric: alert Microbiology Date/Time Source Procedure Growth Status 03/01/17 05:20 Blood Blood Culture - Preliminary NO GROWTH AFTER 24 HOURS Resulted 03/01/17 05:15 Blood Blood Culture - Preliminary NO GROWTH AFTER 24 HOURS Resulted Laboratory Tests Test 03/02/17 03:30 Sodium Level 140 MMOL/L (136-145) Potassium Level 3.5 MMOL/L (3.5-5.1) Chloride Level 103 MMOL/L (98-107) Carbon Dioxide Level 32 MMOL/L (21-32) Anion Gap 5 mmol/L (5-15) Blood Urea Nitrogen 31 mg/dL (7-18) H Creatinine 0.9 MG/DL (0.55-1.30) Estimat Glomerular Filtration Rate mL/min (>60) Glucose Level 116 MG/DL (74-106) #H Calcium Level 7.2 MG/DL (8.5-10.1) L Total Bilirubin 0.9 MG/DL (0.2-1.0) Aspartate Amino Transf (AST/SGOT) 67 U/L (15-37) H Alanine Aminotransferase (ALT/SGPT) 60 U/L (12-78) Alkaline Phosphatase 115 U/L (46-116) Troponin I 0.222 ng/mL (0.000-0.056) Pro-B-Type Natriuretic Peptide 09118 pg/mL (0-125) H Total Protein 6.3 G/DL (6.4-8.2) L Albumin 2.0 G/DL (3.4-5.0) L Globulin 4.3 g/dL Albumin/Globulin Ratio 0.5 (1.0-2.7) L Current Medications Medications (Trade) Dose Ordered Sig/Vicky Route PRN Reason Start Time Stop Time Status Last Admin Dose Admin Aspirin (ASA) 81 mg DAILY ORAL 03/01/17 13:15 03/31/17 13:14 03/02/17 08:45 Cefepime HCl 2 gm/ Dextrose 55 ml @ 110 mls/hr EVERY 12 HOURS IVPB 02/28/17 23:00 03/07/17 22:59 03/02/17 08:45 Clotrimazole (Lotrimin) 1 applic EVERY 12 HOURS TOPIC 03/01/17 21:00 03/31/17 20:59 03/02/17 08:44 Furosemide (Lasix) 40 mg EVERY 12 HOURS IV 03/01/17 13:15 03/31/17 13:14 03/02/17 08:45 Lorazepam (Ativan 2mg/ml 1ml) 1 mg Q4H PRN IV For Anxiety 02/28/17 22:00 03/07/17 21:59 Metronidazole (Flagyl) 500 mg Q8HR ORAL 03/01/17 14:00 03/08/17 13:59 03/02/17 13:03 Vancomycin HCl (Vanco rx to dose) 1 ea DAILY PRN MISC Per rx protocol 02/28/17 23:00 03/30/17 22:59 Vancomycin HCl/ Dextrose 250 ml @ 125 mls/hr Q24H IVPB 02/28/17 01:00 03/05/17 00:59 03/02/17 01:42 Mike Nguyen M.D. Mar 02, 2017 17:25
[2017-03-02 20:00] VITALS: BP 135/78
--- NOTE | 2017-03-02 20:45 | Consultation ---
DATE OF CONSULTATION: 02/28/2017 CARDIOLOGY CONSULTATION CONSULTING PHYSICIAN: Rehan Grove M.D. ATTENDING/REQUESTING PHYSICIAN: Phillip Galaviz M.D. REASON FOR CONSULTATION: Elevated troponin level and congestive heart failure. HISTORY OF PRESENT ILLNESS: This is a 76-year-old male, who resides at a [facility] facility. He has had approximately one month of worsening of strange behavior according to other residents. He has had increasing jerking and twitching motions of his trunk. He was also noted to have increasing swelling of his legs and groin infection of the skin. He came to the emergency room for assessment. He was admitted for further management. I have been asked to address his abnormal troponin level. The patient denies chest pain. No shortness of breath. Leg swelling is not improved with oral diuretics. PAST MEDICAL HISTORY: Includes type 2 diabetes mellitus, hypertension, history of congestive heart failure, chronic venous insufficiency, dystonia. MEDICATIONS: Reviewed and reconciled. ALLERGIES: None. SOCIAL HISTORY: Denies smoking, alcohol, or substance abuse. FAMILY HISTORY: Noncontributory. REVIEW OF SYSTEMS: Difficult to obtain due to the patient's stuttering and involuntary twitching, however, reliable data is outlined above. PHYSICAL EXAMINATION: VITAL SIGNS: Blood pressure 148/101, heart rate 98, respiratory rate 18, and afebrile. GENERAL: Dystonic movements. HEENT: Conjunctivae pink. Oropharynx clear. NECK: Supple. Jugular venous pressure elevated. LUNGS: With diminished breath sounds. CARDIAC: Regular rhythm and rate. Normal S1 and S2 with a fourth heart sound. ABDOMEN: Soft, nontender. EXTREMITIES: With 2+ to 3+ dependent edema. SKIN: Groin with bilateral erythema and skin abscesses. LABORATORY AND DIAGNOSTIC DATA: Chest x-ray, bilateral interstitial edema. EKG, sinus rhythm, inferior infarction of indeterminate age, nonspecific ST-T wave changes. Troponin 0.48. Other laboratories reviewed. IMPRESSION: 1. Acute respiratory insufficiency. 2. Bilateral groin abscesses. 3. Bilateral lower extremity edema, rule out deep venous thrombosis. 4. Hypertensive heart disease with uncontrolled blood pressure. 5. Acute myocardial ischemia and possible ulb-CI-[id number] infarction. 6. Acute on chronic systolic and diastolic congestive heart failure. PLAN: Cardiac monitoring. BiPAP support. Antiplatelet therapy. Lipid panel. Diuresis. Empiric antibiotics. Respiratory hygiene. Serial troponins. DVT prophylaxis. Venous duplex scan to assess for possible source of pulmonary emboli. Echocardiogram to assess left ventricular function. Rehan Grove M.D. DR: Judy JOB#: [id number] CC:
--- NOTE | 2017-03-02 23:36 | Nephrology Progress Note ---
Assessment/Plan Problem List: (1) CHF (congestive heart failure) (2) Hypoglycemia (3) Abscess of groin, left (4) Abscess of groin, right (5) HCAP (healthcare-associated pneumonia) (6) Azotemia (7) Elevated troponin (8) Altered mental status Plan ID and cardio following. abx per ID. f/u wound cx. Subjective Subjective attempts to speak but difficult to understand. no acute distress. Objective Objective Last 24 Hour Vital Signs Date Time Temp Pulse Resp B/P (MAP) Pulse Ox O2 Delivery O2 Flow Rate FiO2 03/02/17 20:00 90 03/02/17 20:00 98.1 85 20 135/78 100 Room Air 03/02/17 19:29 94 Room Air 21 03/02/17 19:29 90 18 Venturi Mask 30 03/02/17 16:12 90 03/02/17 16:00 98.0 86 21 118/87 94 Room Air 03/02/17 12:00 97.5 95 21 124/53 94 Room Air 03/02/17 11:49 87 03/02/17 08:00 97.5 102 22 125/69 92 Room Air 03/02/17 08:00 101 03/02/17 06:52 94 Room Air 21 03/02/17 06:52 96 18 Venturi Mask 30 03/02/17 04:00 98.2 89 18 125/66 98 Room Air 03/02/17 04:00 103 03/02/17 00:00 98.1 90 18 119/70 99 Room Air 03/02/17 00:00 105 Intake and Output 03/01/17 03/02/17 19:00 07:00 Intake Total 655 ml 1505 ml Output Total 2000 ml 1800 ml Balance -1345 ml -295 ml Intake Oral 600 ml 1200 ml IV Total 55 ml 305 ml Output Urine Total 2000 ml 1800 ml Laboratory Tests 03/02/17 03:30: Sodium Level 140, Potassium Level 3.5, Chloride Level 103, Carbon Dioxide Level 32, Anion Gap 5, Blood Urea Nitrogen 31H, Creatinine 0.9, Estimat Glomerular Filtration Rate , Glucose Level 116#H, Calcium Level 7.2L, Total Bilirubin 0.9, Aspartate Amino Transf (AST/SGOT) 67H, Alanine Aminotransferase (ALT/SGPT) 60, Alkaline Phosphatase 115, Troponin I 0.222H, Pro-B-Type Natriuretic Peptide 34929H, Total Protein 6.3L, Albumin 2.0L, Globulin 4.3, Albumin/Globulin Ratio 0.5L Height (Feet): 5 Height (Inches): 7.00 Weight (Pounds): 171 General Appearance: no apparent distress Cardiovascular: normal rate, regular rhythm Respiratory/Chest: decreased breath sounds Abdomen: non tender, soft Extremities: non-pitting Neurologic: alert JEYSON NAVAS Mar 02, 2017 23:36
[2017-03-03] VITALS: BP 140/82
[2017-03-03] MEDS: Vancomycin 1500mg IVPB SCH (00:41)
[2017-03-03 04:00] VITALS: BP 127/85
[2017-03-03] MEDS: metroNIDAZOLE 500mg tab ORAL SCH ×3 (06:14→21:48)
[2017-03-03 08:00] VITALS: BP 144/77
[2017-03-03] MEDS: Aspirin Baby 81mg ORAL SCH (08:05)
[2017-03-03] MEDS: Cefepime HCl 2 GM in D5W 55 ML IVPB SCH ×2 (08:06→21:47)
[2017-03-03 12:00] VITALS: BP 135/95
--- NOTE | 2017-03-03 12:28 | Infectious Diseases Prog Note ---
Assessment/Plan Problems: (1) Abscess of groin, left Assessment & Plan: improving on vancomycin , cefepime and metronidazol empirically, with antifungal topical , continue local wound care , as per wound care service (2) Abscess of groin, right Assessment & Plan: management the same as above (3) HCAP (healthcare-associated pneumonia) Assessment & Plan: improving on vancomycin and cefepime empirically , monitor CXR (4) CHF (congestive heart failure) Assessment & Plan: continue diuresis , monitor out put ant daily weight (5) Hypoglycemia Assessment & Plan: monitor glucose level avoid insulin for now Subjective Constitutional: Reports: no symptoms HEENT: Reports: no symptoms Respiratory: Reports: no symptoms Breasts: Reports: no symptoms Cardiovascular: Reports: no symptoms Gastrointestinal/Abdominal: Reports: no symptoms Genitourinary: Reports: no symptoms Neurologic: Reports: no symptoms Psychiatric: Reports: no symptoms Skin: Reports: no symptoms Endocrine: Reports: no symptoms Hematologic: Reports: no symptoms Musculoskeletal: Reports: no symptoms Allergies: Coded Allergies: No Known Allergies (Unverified , 02/28/17) Subjective he was up in bed alert, with jerking movements of the head and the shoulders, no fever or chills, no cough or SOB Objective Vital Signs Last 24 Hour Vital Signs Date Time Temp Pulse Resp B/P (MAP) Pulse Ox O2 Delivery O2 Flow Rate FiO2 03/03/17 08:00 97.7 94 21 144/77 93 Room Air 03/03/17 07:58 94 03/03/17 07:02 96 Venturi Mask 30 03/03/17 07:02 86 18 Venturi Mask 30 03/03/17 04:00 97.7 87 20 127/85 95 Room Air 03/03/17 04:00 76 03/03/17 00:00 85 03/03/17 00:00 97.5 80 20 140/82 95 Room Air 03/02/17 20:00 90 03/02/17 20:00 98.1 85 20 135/78 100 Room Air 03/02/17 19:29 94 Room Air 21 03/02/17 19:29 90 18 Venturi Mask 30 03/02/17 16:12 90 03/02/17 16:00 98.0 86 21 118/87 94 Room Air Height (Feet): 5 Height (Inches): 7.00 Weight (Pounds): 171 General Appearance: WD/WN, no acute distress HEENT: normocephalic, atraumatic, anicteric, mucous membranes moist, PERRL, EOMI, pharynx normal, supple, no JVD Respiratory/Chest: chest wall non-tender, lungs clear, normal breath sounds, no respiratory distress, no accessory muscle use Cardiovascular: normal peripheral pulses, normal rate, regular rhythm, no gallop/murmur, no JVD Abdomen: normal bowel sounds, soft, non tender, no organomegaly, non distended , no mass, no scars Extremities: no cyanosis, no clubbing Skin: no lesions, rash, lesions Neurologic/Psychiatric: alert, responsive Microbiology Date/Time Source Procedure Growth Status 03/01/17 05:20 Blood Blood Culture - Preliminary NO GROWTH AFTER 48 HOURS Resulted 03/01/17 05:15 Blood Blood Culture - Preliminary NO GROWTH AFTER 48 HOURS Resulted 02/28/17 20:00 Wound Gram Stain - Final Resulted 02/28/17 20:00 Wound Culture - Preliminary Gram Negative Bacillus 1 Resulted 02/28/17 20:00 Nasal Nares MRSA Culture - Final NO METHICILLIN RESISTANT STAPH AUREUS... Complete 02/28/17 20:00 Rectum VRE Culture - Final NO VANCOMYCIN RESISTANT ENTEROCOCCUS ... Complete Current Medications Medications (Trade) Dose Ordered Sig/Vicky Route PRN Reason Start Time Stop Time Status Last Admin Dose Admin Aspirin (ASA) 81 mg DAILY ORAL 03/01/17 13:15 03/31/17 13:14 03/03/17 08:05 Cefepime HCl 2 gm/ Dextrose 55 ml @ 110 mls/hr EVERY 12 HOURS IVPB 02/28/17 23:00 03/07/17 22:59 03/03/17 08:06 Clotrimazole (Lotrimin) 1 applic EVERY 12 HOURS TOPIC 03/01/17 21:00 03/31/17 20:59 03/03/17 08:06 Furosemide (Lasix) 40 mg EVERY 12 HOURS IV 03/01/17 13:15 03/31/17 13:14 03/03/17 08:05 Lorazepam (Ativan 2mg/ml 1ml) 1 mg Q4H PRN IV For Anxiety 02/28/17 22:00 03/07/17 21:59 Metronidazole (Flagyl) 500 mg Q8HR ORAL 03/01/17 14:00 03/08/17 13:59 03/03/17 06:14 Vancomycin HCl (Vanco rx to dose) 1 ea DAILY PRN MISC Per rx protocol 02/28/17 23:00 03/30/17 22:59 Vancomycin HCl/ Dextrose 250 ml @ 125 mls/hr Q24H IVPB 02/28/17 01:00 03/05/17 00:59 03/03/17 00:41 Mike Nguyen M.D. Mar 03, 2017 12:28
[2017-03-03 16:00] VITALS: BP 145/95
--- NOTE | 2017-03-03 17:55 | Pulmonology Progress Note ---
Assessment/Plan Assessment/Plan IMPRESSION: 1. Acute myocardial ischemia. 2. 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 3. Chronic obstructive pulmonary disease. 4. Moderate protein-calorie malnutrition. 5. Prerenal azotemia. 6. Metabolic encephalopathy. 7. Right bilateral groin abscesses. 8. Hypertensive heart disease now with better blood pressure control. PLAN: 1. Antimicrobials. 2. Bronchodilators. 3. Skin care. 4. IV diuretic therapy. 5. Echocardiogram for assessment of left ventricular function. 6. Titration of antihypertensive regimen based on clinical parameters. 7. Continue aspirin prophylaxis. 8. Reassess for antianginal therapy based on clinical parameters. Due to lung disease, we will be avoiding beta-blockers at this time. Subjective Interval Events: None Constitutional: Reports: no symptoms HEENT: Repors: no symptoms Respiratory: Reports: no symptoms Cardiovascular: Reports: no symptoms Gastrointestinal/Abdominal: Reports: no symptoms Allergies: Coded Allergies: No Known Allergies (Unverified , 02/28/17) Objective Last 24 Hour Vital Signs Date Time Temp Pulse Resp B/P (MAP) Pulse Ox O2 Delivery O2 Flow Rate FiO2 03/03/17 16:04 88 03/03/17 16:00 97.7 90 22 145/95 95 Room Air 03/03/17 12:00 97.7 90 21 135/95 90 Room Air 03/03/17 11:57 92 03/03/17 08:00 97.7 94 21 144/77 93 Room Air 03/03/17 07:58 94 03/03/17 07:02 96 Venturi Mask 30 03/03/17 07:02 86 18 Venturi Mask 30 03/03/17 04:00 97.7 87 20 127/85 95 Room Air 03/03/17 04:00 76 03/03/17 00:00 85 03/03/17 00:00 97.5 80 20 140/82 95 Room Air 03/02/17 20:00 90 03/02/17 20:00 98.1 85 20 135/78 100 Room Air 03/02/17 19:29 94 Room Air 21 03/02/17 19:29 90 18 Venturi Mask 30 Intake and Output 03/02/17 03/03/17 19:00 07:00 Intake Total 655 ml 760 ml Output Total 900 ml 750 ml Balance -245 ml 10 ml Intake Oral 600 ml 350 ml IV Total 55 ml 410 ml Output Urine Total 900 ml 750 ml General Appearance: no acute distress HEENT: normocephalic Respiratory/Chest: chest wall non-tender, lungs clear Cardiovascular: normal peripheral pulses, normal rate Microbiology Date/Time Source Procedure Growth Status 03/01/17 05:20 Blood Blood Culture - Preliminary NO GROWTH AFTER 48 HOURS Resulted 03/01/17 05:15 Blood Blood Culture - Preliminary NO GROWTH AFTER 48 HOURS Resulted 02/28/17 20:00 Wound Gram Stain - Final Resulted 02/28/17 20:00 Wound Culture - Preliminary Gram Negative Bacillus 1 Resulted 02/28/17 20:00 Nasal Nares MRSA Culture - Final NO METHICILLIN RESISTANT STAPH AUREUS... Complete 02/28/17 20:00 Rectum VRE Culture - Final NO VANCOMYCIN RESISTANT ENTEROCOCCUS ... Complete Current Medications Medications (Trade) Dose Ordered Sig/Vicky Route PRN Reason Start Time Stop Time Status Last Admin Dose Admin Aspirin (ASA) 81 mg DAILY ORAL 03/01/17 13:15 03/31/17 13:14 03/03/17 08:05 Cefepime HCl 2 gm/ Dextrose 55 ml @ 110 mls/hr EVERY 12 HOURS IVPB 02/28/17 23:00 03/07/17 22:59 03/03/17 08:06 Clotrimazole (Lotrimin) 1 applic EVERY 12 HOURS TOPIC 03/01/17 21:00 03/31/17 20:59 03/03/17 08:06 Furosemide (Lasix) 40 mg EVERY 12 HOURS IV 03/01/17 13:15 03/31/17 13:14 03/03/17 08:05 Lorazepam (Ativan 2mg/ml 1ml) 1 mg Q4H PRN IV For Anxiety 02/28/17 22:00 03/07/17 21:59 Metronidazole (Flagyl) 500 mg Q8HR ORAL 03/01/17 14:00 03/08/17 13:59 03/03/17 13:38 Vancomycin HCl (Vanco rx to dose) 1 ea DAILY PRN MISC Per rx protocol 02/28/17 23:00 03/30/17 22:59 Vancomycin HCl/ Dextrose 250 ml @ 125 mls/hr Q24H IVPB 02/28/17 01:00 03/05/17 00:59 03/03/17 00:41 López Schofield MD Mar 03, 2017 17:55
--- NOTE | 2017-03-03 19:00 | History and Physical Report ---
DATE OF ADMISSION: 02/28/2017 HISTORY AND PHYSICAL/PROGRESS NOTE HISTORY OF PRESENT ILLNESS: This is a 76-year-old male, who came to the emergency room for altered mental status. The patient was confused and nonverbal and lethargic. He was recovering now. He is alert, awake, and still confused. No fever. No chills. PAST MEDICAL HISTORY: COPD, CHF, hypertension, dementia, and depression. MEDICATIONS: See the list. ALLERGIES: NKA. SOCIAL HISTORY: Lives at a halfway. FAMILY HISTORY: Noncontributory. PHYSICAL EXAMINATION: GENERAL: This is an elderly cachectic, white male, currently awake. VITAL SIGNS: Blood pressure is 130/70, pulse 74, and respirations 18. No fever. HEENT: AT/NC. EOMI. PERRLA. NECK: Supple. No JVD. CHEST: Bilaterally clear. CARDIOVASCULAR: Regular rhythm. No gallop. No murmur. ABDOMEN: Soft. EXTREMITIES: No swelling. GENITOURINARY: Deferred. LABORATORY EXAMINATION: Not available. ASSESSMENT: 1. Altered mental status. 2. Dehydration. 3. Hypertension. 4. Dementia. PLAN: We will currently continue IV fluid, antibiotic, PT and OT, bronchodilator treatments. Consider Pulmonary consult. Mike Oneil M.D. DR: Keith JOB#: [id number] CC:
[2017-03-03 20:00] VITALS: BP 132/88
--- NOTE | 2017-03-03 21:45 | Nephrology Progress Note ---
Assessment/Plan Problem List: (1) Azotemia (2) CHF (congestive heart failure) (3) Elevated troponin (4) Abscess of groin, left (5) Abscess of groin, right (6) HCAP (healthcare-associated pneumonia) (7) Altered mental status Plan Continue current treatment plan Monitor lites, replace prn Renally dose med, avoid nephrotoxins Monitor intake and output Continue abx per ID Monitor neuro status Continue wound care per recs AM labs Subjective Constitutional: Denies: no symptoms, chills, diaphoresis, fever, malaise, weakness, other HEENT: Denies: no symptoms, eye pain, blurred vision, tearing, double vision, ear pain, ear discharge, nose pain, nose congestion, throat pain, throat swelling, mouth pain, mouth swelling, other Genitourinary: Denies: no symptoms, burning, discharge, frequency, flank pain, hematuria, incontinence, pain, urgency, other Neurologic/Psychiatric: Denies: no symptoms, anxiety, depressed, emotional problems, headache, numbness, paresthesia, pre-existing deficit, seizure, tingling, tremors, weakness, other Subjective Denies discomfort at this time, speech is garbled Objective Objective Last 24 Hour Vital Signs Date Time Temp Pulse Resp B/P (MAP) Pulse Ox O2 Delivery O2 Flow Rate FiO2 03/03/17 16:04 88 03/03/17 16:00 97.7 90 22 145/95 95 Room Air 03/03/17 12:00 97.7 90 21 135/95 90 Room Air 03/03/17 11:57 92 03/03/17 08:00 97.7 94 21 144/77 93 Room Air 03/03/17 07:58 94 03/03/17 07:02 96 Venturi Mask 30 03/03/17 07:02 86 18 Venturi Mask 30 03/03/17 04:00 97.7 87 20 127/85 95 Room Air 03/03/17 04:00 76 03/03/17 00:00 85 03/03/17 00:00 97.5 80 20 140/82 95 Room Air Intake and Output 03/02/17 03/03/17 19:00 07:00 Intake Total 655 ml 760 ml Output Total 900 ml 750 ml Balance -245 ml 10 ml Intake Oral 600 ml 350 ml IV Total 55 ml 410 ml Output Urine Total 900 ml 750 ml Height (Feet): 5 Height (Inches): 7.00 Weight (Pounds): 171 General Appearance: no apparent distress, alert EENT: normal ENT inspection Neck: normal alignment Cardiovascular: normal rate Respiratory/Chest: normal breath sounds, no respiratory distress Abdomen: non tender, soft Extremities: non-tender Neurologic: responsive, normal mood/affect Delisa Miranda N.P. Mar 03, 2017 21:45
[2017-03-04] VITALS: BP 136/88
[2017-03-04] MEDS: Vancomycin 750mg/NS 250ml IVPB SCH ×2 (02:47→14:59)
[2017-03-04 04:00] VITALS: BP 149/102
[2017-03-04 05:12] LABS: BASOPHILS % (AUTO) 1.2 % (0.0-2.0); HEMATOCRIT 39.7 % (42.0-52.0); HEMOGLOBIN 12.3 G/DL (14.2-18.0); LYMPHOCYTES % (AUTO) 19.3 % (20.0-45.0); MEAN CORPUSCULAR VOLUME 98 FL (80-99); MONOCYTES % (AUTO) 9.7 % (1.0-10.0); NEUTROPHILS % (AUTO) 69.8 % (45.0-75.0); PLATELET COUNT 301 K/UL (150-450); RED BLOOD COUNT 4.06 M/UL (4.70-6.10); WHITE BLOOD COUNT 3.8 K/UL (4.8-10.8)
[2017-03-04 05:59] LABS: ALANINE AMINOTRANSFERASE 54 U/L (12-78); ALBUMIN 1.8 G/DL (3.4-5.0); ALBUMIN/GLOBULIN RATIO 0.4 (1.0-2.7); ALKALINE PHOSPHATASE 115 U/L (46-116); ANION GAP 0 mmol/L (5-15); ASPARTATE AMINO TRANSFERASE 53 U/L (15-37); BILIRUBIN,TOTAL 0.9 MG/DL (0.2-1.0); BLOOD UREA NITROGEN 27 mg/dL (7-18); CALCIUM 6.9 MG/DL (8.5-10.1); CARBON DIOXIDE 36 MMOL/L (21-32); CHLORIDE 102 MMOL/L (98-107); CREATININE 0.8 MG/DL (0.55-1.30); SODIUM 143 MMOL/L (136-145)
[2017-03-04] MEDS: metroNIDAZOLE 500mg tab ORAL SCH ×3 (06:21→22:19)
[2017-03-04] MEDS: Vancomycin 1500mg IVPB SCH (07:17)
[2017-03-04 08:00] VITALS: BP 153/84
[2017-03-04] MEDS: Aspirin Baby 81mg ORAL SCH (08:05)
[2017-03-04] MEDS: Cefepime HCl 2 GM in D5W 55 ML IVPB SCH ×2 (08:06→21:28)
--- NOTE | 2017-03-04 08:30 | Consultation ---
DATE OF CONSULTATION: 03/01/2017 PULMONARY CONSULTATION CONSULTING PHYSICIAN: López Schofield M.D REFERRING PHYSICIAN: Phillip Galaviz M.D. REASON FOR ADMISSION: Groin abscess and pneumonia. HISTORY OF PRESENT ILLNESS: This is a 76-year-old female, who is a resident of a [facility]. She was brought to the hospital with complaints of back pain and strain. She was also noted to be hypoglycemic. She was also noted to have some jerking movements. She was worked up and found to have an abscess in the groin as well as pneumonia. PAST MEDICAL HISTORY: Notable for diabetes mellitus, congestive heart failure, 01:04. HOME MEDICATIONS: Reviewed in the chart. PHYSICAL EXAMINATION: GENERAL: Reveals an elderly female. HEENT: Unremarkable. CHEST: Decreased breath sounds bilaterally. HEART: Normal heart sounds. ABDOMEN: Soft. EXTREMITIES: There is no appreciable edema. Please note that the patient has 2+ edema. LABORATORY AND DIAGNOSTIC DATA: An x-ray of chest showed interstitial edema as well. Lab testing shows normal CBC and BMP. Creatinine is 1. Glucose is 266. 01:28 troponin is 0.226. IMAGING STUDIES: X-ray of the chest was obtained, which showed cardiomegaly with patchy infiltrates. IMPRESSION: 1. Decompensated heart failure. 2. Diabetes mellitus. DISCUSSION: The patient needs diuresis and 01:49 be started on antibiotics. She received Lasix yesterday. I will resume Lasix. We will follow carefully. Order oxygen and pulmonary hygiene. López Schofield M.D. DR: ROCHELLE JOB#: [id number] CC:
--- NOTE | 2017-03-04 09:00 | Progress Note ---
DATE: 03/02/2017 CARDIOLOGY PROGRESS NOTE SUBJECTIVE: Continues with involuntary movements, less congestion, still short of breath. OBJECTIVE: VITAL SIGNS: Blood pressure 125/66, pulse 89, respirations 18, and afebrile. LUNGS: Coarse breath sounds. Scattered rhonchi. HEART: Regular rhythm and rate. Normal S1, S2. ABDOMEN: Soft. EXTREMITIES: 2+ edema. Groin abscesses noted. DIAGNOSTIC AND LABORATORY DATA: Venous duplex scan is negative. BUN 31, creatinine 0.9, and potassium 3.5. Troponin is 0.222. Pro-natriuretic peptide is over 10,000. IMPRESSION: 1. Acute myocardial ischemia. 2. 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 3. Chronic obstructive pulmonary disease exacerbation. 4. Metabolic encephalopathy. 5. Bilateral groin abscesses. 6. Hypertensive heart disease with controlled blood pressure. 7. Venous stasis and lower extremity edema. PLAN: 1. Continue antimicrobials, bronchodilators, steroids with taper, diuresis. 2. Review echocardiogram. 3. Aspirin prophylaxis. 4. DVT prophylaxis. Rehan Grove M.D. DR: DOT JOB#: [id number] CC:
--- NOTE | 2017-03-04 09:00 | Progress Note ---
DATE: 03/03/2017 CARDIOLOGY PROGRESS NOTE SUBJECTIVE: The patient has less congestion. No chest pain. OBJECTIVE: VITAL SIGNS: Blood pressure 145/95, pulse 90, respirations 22, and afebrile. LUNGS: Coarse breath sounds. Few rhonchi. HEART: Regular rhythm and rate. Normal S1, S2. ABDOMEN: Soft. EXTREMITIES: 2+ dependent edema. LABORATORY DATA: No new laboratories. IMPRESSION: 1. Groin abscess. 2. Venous insufficiency. 3. Acute myocardial ischemia. 4. 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 5. Hypertensive heart disease with labile blood pressure. 6. Chronic obstructive pulmonary disease exacerbation. PLAN: 1. Titration of antihypertensives. 2. Steroid taper. 3. Respiratory therapy, bronchodilators. Rehan Grove M.D. DR: DOT JOB#: [id number] CC:
--- NOTE | 2017-03-04 09:25 | Pulmonology Progress Note ---
Assessment/Plan Assessment/Plan IMPRESSION: 1. Acute myocardial ischemia. 2. 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 3. Chronic obstructive pulmonary disease. 4. Moderate protein-calorie malnutrition. 5. Prerenal azotemia. 6. Metabolic encephalopathy. 7. Right bilateral groin abscesses. 8. Hypertensive heart disease now with better blood pressure control. PLAN: 1. Antimicrobials. 2. Bronchodilators. 3. Skin care. 4. IV diuretic therapy. 6. Titration of antihypertensive regimen based on clinical parameters. 7. Continue aspirin prophylaxis. 8. Reassess for antianginal therapy based on clinical parameters. Due to lung disease, we will be avoiding beta-blockers at this time. Subjective Interval Events: None Constitutional: Reports: no symptoms HEENT: Repors: no symptoms Respiratory: Reports: no symptoms Cardiovascular: Reports: no symptoms Gastrointestinal/Abdominal: Reports: no symptoms Allergies: Coded Allergies: No Known Allergies (Unverified , 02/28/17) Objective Last 24 Hour Vital Signs Date Time Temp Pulse Resp B/P (MAP) Pulse Ox O2 Delivery O2 Flow Rate FiO2 03/04/17 08:00 97.0 73 20 153/84 99 Room Air 03/04/17 07:37 102 03/04/17 04:00 97.0 88 26 149/102 88 Room Air 03/04/17 04:00 87 03/04/17 04:00 97.0 88 26 149/102 88 Room Air 03/04/17 04:00 97.0 88 26 149/102 88 Room Air 03/04/17 00:00 84 03/04/17 00:00 97.0 85 24 136/88 98 Room Air 03/03/17 20:00 97.0 88 20 132/88 96 Room Air 03/03/17 20:00 85 03/03/17 19:00 96 Room Air 21 03/03/17 19:00 76 18 Room Air 03/03/17 16:04 88 03/03/17 16:00 97.7 90 22 145/95 95 Room Air 03/03/17 12:00 97.7 90 21 135/95 90 Room Air 03/03/17 11:57 92 Intake and Output 03/03/17 03/04/17 19:00 07:00 Intake Total 855 ml 396.667 ml Output Total 700 ml 800 ml Balance 155 ml -403.333 ml Intake Oral 800 ml IV Total 55 ml 396.667 ml Output Urine Total 700 ml 800 ml # Bowel Movements 1 General Appearance: no acute distress HEENT: normocephalic Respiratory/Chest: chest wall non-tender, lungs clear Cardiovascular: normal peripheral pulses, normal rate Laboratory Tests 03/04/17 01:00: Vancomycin Level Trough 7.6 03/04/17 03:50: White Blood Count 3.8L, Red Blood Count 4.06L, Hemoglobin 12.3L, Hematocrit 39.7L, Mean Corpuscular Volume 98, Mean Corpuscular Hemoglobin 30.3, Mean Corpuscular Hemoglobin Concent 31.0L, Red Cell Distribution Width 14.0, Platelet Count 301, Mean Platelet Volume 8.5, Neutrophils (%) (Auto) 69.8, Lymphocytes (%) (Auto) 19.3L, Monocytes (%) (Auto) 9.7, Eosinophils (%) (Auto) 0.0, Basophils (%) (Auto) 1.2, Sodium Level 143, Potassium Level 3.0L, Chloride Level 102, Carbon Dioxide Level 36H, Anion Gap 0L, Blood Urea Nitrogen 27H, Creatinine 0.8, Estimat Glomerular Filtration Rate , Glucose Level 124H, Calcium Level 6.9L, Magnesium Level 1.5L, Total Bilirubin 0.9, Aspartate Amino Transf (AST/SGOT) 53H, Alanine Aminotransferase (ALT/SGPT) 54, Alkaline Phosphatase 115, Troponin I 0.305H, Total Protein 6.2L, Albumin 1.8L, Globulin 4.4, Albumin/Globulin Ratio 0.4L Current Medications Medications (Trade) Dose Ordered Sig/Vicky Route PRN Reason Start Time Stop Time Status Last Admin Dose Admin Aspirin (ASA) 81 mg DAILY ORAL 03/01/17 13:15 03/31/17 13:14 03/04/17 08:05 Cefepime HCl 2 gm/ Dextrose 55 ml @ 110 mls/hr EVERY 12 HOURS IVPB 02/28/17 23:00 03/07/17 22:59 03/04/17 08:06 Clotrimazole (Lotrimin) 1 applic EVERY 12 HOURS TOPIC 03/01/17 21:00 03/31/17 20:59 03/04/17 08:06 Furosemide (Lasix) 40 mg EVERY 12 HOURS IV 03/01/17 13:15 03/31/17 13:14 03/04/17 08:06 Lorazepam (Ativan 2mg/ml 1ml) 1 mg Q4H PRN IV For Anxiety 02/28/17 22:00 03/07/17 21:59 Metronidazole (Flagyl) 500 mg Q8HR ORAL 03/01/17 14:00 03/08/17 13:59 03/04/17 06:21 Vancomycin HCl (Vanco rx to dose) 1 ea DAILY PRN MISC Per rx protocol 02/28/17 23:00 03/30/17 22:59 Vancomycin/Sodium Chloride 250 ml @ 166.667 mls/hr Q12H IVPB 03/04/17 02:00 03/09/17 01:59 03/04/17 02:47 López Schofield MD Mar 04, 2017 09:25
[2017-03-04 12:00] VITALS: BP 141/88
--- NOTE | 2017-03-04 12:14 | Infectious Diseases Prog Note ---
Assessment/Plan Problems: (1) Abscess of groin, left Assessment & Plan: improving on vancomycin , cefepime and metronidazol empirically, with antifungal topical , culture of the wound is growing gram negative bacillus and streptococcus group G , continue local wound care , as per wound care service (2) Abscess of groin, right Assessment & Plan: management the same as above (3) HCAP (healthcare-associated pneumonia) Assessment & Plan: improving on vancomycin and cefepime empirically , monitor CXR (4) CHF (congestive heart failure) Assessment & Plan: continue diuresis , monitor out put and daily weight (5) Hypoglycemia Assessment & Plan: resolved, monitor glucose level closely Subjective Constitutional: Reports: no symptoms HEENT: Reports: no symptoms Respiratory: Reports: no symptoms Breasts: Reports: no symptoms Cardiovascular: Reports: no symptoms Gastrointestinal/Abdominal: Reports: no symptoms Genitourinary: Reports: no symptoms Neurologic: Reports: weakness, other - tremors Psychiatric: Reports: anxiety Skin: Reports: rash, other - groins inflamation Endocrine: Reports: no symptoms Hematologic: Reports: no symptoms Musculoskeletal: Reports: stiffness Allergies: Coded Allergies: No Known Allergies (Unverified , 02/28/17) Subjective he was up in bed alert, with jerking movements of the head and the shoulders, no fever or chills, no cough or SOB Objective Vital Signs Last 24 Hour Vital Signs Date Time Temp Pulse Resp B/P (MAP) Pulse Ox O2 Delivery O2 Flow Rate FiO2 03/04/17 08:00 97.0 73 20 153/84 99 Room Air 03/04/17 07:37 102 03/04/17 04:00 97.0 88 26 149/102 88 Room Air 03/04/17 04:00 87 03/04/17 04:00 97.0 88 26 149/102 88 Room Air 03/04/17 04:00 97.0 88 26 149/102 88 Room Air 03/04/17 00:00 84 03/04/17 00:00 97.0 85 24 136/88 98 Room Air 03/03/17 20:00 97.0 88 20 132/88 96 Room Air 03/03/17 20:00 85 03/03/17 19:00 96 Room Air 21 03/03/17 19:00 76 18 Room Air 03/03/17 16:04 88 03/03/17 16:00 97.7 90 22 145/95 95 Room Air Height (Feet): 5 Height (Inches): 7.00 Weight (Pounds): 171 General Appearance: WD/WN, no acute distress, cachetic HEENT: normocephalic, atraumatic, anicteric, mucous membranes moist, PERRL, EOMI, pharynx normal, supple, no JVD Respiratory/Chest: chest wall non-tender, lungs clear, normal breath sounds, no respiratory distress, no accessory muscle use Cardiovascular: normal peripheral pulses, normal rate, regular rhythm, no gallop/murmur, no JVD Abdomen: normal bowel sounds, soft, non tender, no organomegaly, non distended , no mass, no scars Extremities: no cyanosis, no clubbing Skin: no lesions, rash, ulcers Neurologic/Psychiatric: alert, oriented x 3, responsive Lymphatic: no neck adenopathy, no groin adenopathy Musculoskeletal: atrophy Laboratory Tests Test 03/04/17 01:00 03/04/17 03:50 Vancomycin Level Trough 7.6 ug/mL (5.0-12.0) White Blood Count 3.8 K/UL (4.8-10.8) L Red Blood Count 4.06 M/UL (4.70-6.10) L Hemoglobin 12.3 G/DL (14.2-18.0) L Hematocrit 39.7 % (42.0-52.0) L Mean Corpuscular Volume 98 FL (80-99) Mean Corpuscular Hemoglobin 30.3 PG (27.0-31.0) Mean Corpuscular Hemoglobin Concent 31.0 G/DL (32.0-36.0) L Red Cell Distribution Width 14.0 % (11.6-14.8) Platelet Count 301 K/UL (150-450) Mean Platelet Volume 8.5 FL (6.5-10.1) Neutrophils (%) (Auto) 69.8 % (45.0-75.0) Lymphocytes (%) (Auto) 19.3 % (20.0-45.0) L Monocytes (%) (Auto) 9.7 % (1.0-10.0) Eosinophils (%) (Auto) 0.0 % (0.0-3.0) Basophils (%) (Auto) 1.2 % (0.0-2.0) Sodium Level 143 MMOL/L (136-145) Potassium Level 3.0 MMOL/L (3.5-5.1) L Chloride Level 102 MMOL/L (98-107) Carbon Dioxide Level 36 MMOL/L (21-32) H Anion Gap 0 mmol/L (5-15) L Blood Urea Nitrogen 27 mg/dL (7-18) H Creatinine 0.8 MG/DL (0.55-1.30) Estimat Glomerular Filtration Rate mL/min (>60) Glucose Level 124 MG/DL (74-106) H Calcium Level 6.9 MG/DL (8.5-10.1) L Magnesium Level 1.5 MG/DL (1.8-2.4) L Total Bilirubin 0.9 MG/DL (0.2-1.0) Aspartate Amino Transf (AST/SGOT) 53 U/L (15-37) H Alanine Aminotransferase (ALT/SGPT) 54 U/L (12-78) Alkaline Phosphatase 115 U/L (46-116) Troponin I 0.305 ng/mL (0.000-0.056) Total Protein 6.2 G/DL (6.4-8.2) L Albumin 1.8 G/DL (3.4-5.0) L Globulin 4.4 g/dL Albumin/Globulin Ratio 0.4 (1.0-2.7) L Current Medications Medications (Trade) Dose Ordered Sig/Vicky Route PRN Reason Start Time Stop Time Status Last Admin Dose Admin Aspirin (ASA) 81 mg DAILY ORAL 03/01/17 13:15 03/31/17 13:14 03/04/17 08:05 Cefepime HCl 2 gm/ Dextrose 55 ml @ 110 mls/hr EVERY 12 HOURS IVPB 02/28/17 23:00 03/07/17 22:59 03/04/17 08:06 Clotrimazole (Lotrimin) 1 applic EVERY 12 HOURS TOPIC 03/01/17 21:00 03/31/17 20:59 03/04/17 08:06 Furosemide (Lasix) 40 mg EVERY 12 HOURS IV 03/01/17 13:15 03/31/17 13:14 03/04/17 08:06 Lorazepam (Ativan 2mg/ml 1ml) 1 mg Q4H PRN IV For Anxiety 02/28/17 22:00 03/07/17 21:59 Metronidazole (Flagyl) 500 mg Q8HR ORAL 03/01/17 14:00 03/08/17 13:59 03/04/17 06:21 Vancomycin HCl (Vanco rx to dose) 1 ea DAILY PRN MISC Per rx protocol 02/28/17 23:00 03/30/17 22:59 Vancomycin/Sodium Chloride 250 ml @ 166.667 mls/hr Q12H IVPB 03/04/17 02:00 03/09/17 01:59 03/04/17 02:47 Mike Nguyen M.D. Mar 04, 2017 12:14
[2017-03-04 16:00] VITALS: BP 133/91
[2017-03-04] MEDS: Enoxaparin 80mg Inj SUBQ SCH (19:53)
[2017-03-04 20:00] VITALS: BP 138/100
[2017-03-04] MEDS ORDERED: Enoxaparin 40mg Inj SUBQ SCH (21:00)
--- NOTE | 2017-03-04 23:46 | Nephrology Progress Note ---
Assessment/Plan Problem List: (1) CHF (congestive heart failure) (2) Hypoglycemia (3) Abscess of groin, left (4) Abscess of groin, right (5) HCAP (healthcare-associated pneumonia) (6) Azotemia (7) Elevated troponin (8) Altered mental status Plan abx per id. wound care. pulm id and cardio following. Subjective Subjective no cough or SOB. Objective Objective Last 24 Hour Vital Signs Date Time Temp Pulse Resp B/P (MAP) Pulse Ox O2 Delivery O2 Flow Rate FiO2 03/04/17 20:00 103 03/04/17 20:00 97.7 83 24 138/100 94 Room Air 03/04/17 16:00 97.3 89 20 133/91 92 Room Air 03/04/17 15:18 103 03/04/17 12:20 94 03/04/17 12:00 97.2 82 20 141/88 94 Room Air 03/04/17 08:00 97.0 73 20 153/84 99 Room Air 03/04/17 07:37 102 03/04/17 07:15 87 18 Room Air 21 03/04/17 07:15 95 Nasal Cannula 2.0 28 03/04/17 04:00 97.0 88 26 149/102 88 Room Air 03/04/17 04:00 87 03/04/17 04:00 97.0 88 26 149/102 88 Room Air 21 03/04/17 04:00 97.0 88 26 149/102 88 Room Air 21 03/04/17 00:00 84 03/04/17 00:00 97.0 85 24 136/88 98 Room Air Intake and Output 03/03/17 03/04/17 19:00 07:00 Intake Total 855 ml 396.667 ml Output Total 700 ml 800 ml Balance 155 ml -403.333 ml Intake Oral 800 ml IV Total 55 ml 396.667 ml Output Urine Total 700 ml 800 ml # Bowel Movements 1 Laboratory Tests 03/04/17 01:00: Vancomycin Level Trough 7.6 03/04/17 03:50: White Blood Count 3.8L, Red Blood Count 4.06L, Hemoglobin 12.3L, Hematocrit 39.7L, Mean Corpuscular Volume 98, Mean Corpuscular Hemoglobin 30.3, Mean Corpuscular Hemoglobin Concent 31.0L, Red Cell Distribution Width 14.0, Platelet Count 301, Mean Platelet Volume 8.5, Neutrophils (%) (Auto) 69.8, Lymphocytes (%) (Auto) 19.3L, Monocytes (%) (Auto) 9.7, Eosinophils (%) (Auto) 0.0, Basophils (%) (Auto) 1.2, Sodium Level 143, Potassium Level 3.0L, Chloride Level 102, Carbon Dioxide Level 36H, Anion Gap 0L, Blood Urea Nitrogen 27H, Creatinine 0.8, Estimat Glomerular Filtration Rate , Glucose Level 124H, Calcium Level 6.9L, Magnesium Level 1.5L, Total Bilirubin 0.9, Aspartate Amino Transf (AST/SGOT) 53H, Alanine Aminotransferase (ALT/SGPT) 54, Alkaline Phosphatase 115, Troponin I 0.305H, Total Protein 6.2L, Albumin 1.8L, Globulin 4.4, Albumin/Globulin Ratio 0.4L Height (Feet): 5 Height (Inches): 7.00 Weight (Pounds): 171 General Appearance: no apparent distress Cardiovascular: normal rate, regular rhythm Respiratory/Chest: decreased breath sounds Abdomen: non tender, soft JEYSON NAVAS Mar 04, 2017 23:46
[2017-03-05 00:58] VITALS: BP 146/98
[2017-03-05] MEDS: Vancomycin 750mg/NS 250ml IVPB SCH ×2 (01:46→14:03)
--- NOTE | 2017-03-05 02:45 | Progress Note ---
DATE: 03/04/2017 CARDIOLOGY PROGRESS NOTE SUBJECTIVE: The patient is without new complaints. Still with jerking movements. Less cough, congestion, and shortness of breath. OBJECTIVE: VITAL SIGNS: Blood pressure 153/84, pulse 73, respirations 20, and afebrile. LUNGS: Coarse breath sounds. HEART: Regular rhythm and rate. Normal S1 and S2. ABDOMEN: Soft. EXTREMITIES: No edema. Bilateral groin ulceration sites without drainage. LABORATORY DATA: White count 3.8 and hemoglobin 12.3. Sodium 143, potassium 3.0, bicarbonate 36, BUN 27, and creatinine 0.8. Troponin 0.305. Albumin 1.8. Magnesium 1.5. IMPRESSION: 1. Acute on chronic diastolic congestive heart failure. 2. Hypokalemia. 3. Hypomagnesemia. 4. Severe protein-calorie malnutrition. 5. Acute myocardial ischemia. PLAN: 1. Replace potassium and magnesium by oral and IV routes respectively. 2. Protein supplement. 3. Continue antianginal regimen. 4. We will order dobutamine echocardiogram to assess coronary flow reserve. Rehan Grove M.D. DR: KYLE JOB#: [id number] CC:
[2017-03-05] MEDS: LORazepam Inj 2mg/ml 1ml IV PRN ×2 (03:43→21:09)
[2017-03-05 04:00] VITALS: BP 158/94
[2017-03-05] MEDS: metroNIDAZOLE 500mg tab ORAL SCH ×3 (05:42→22:00)
[2017-03-05 05:59] LABS: ALANINE AMINOTRANSFERASE 53 U/L (12-78); ALBUMIN 1.9 G/DL (3.4-5.0); ALBUMIN/GLOBULIN RATIO 0.4 (1.0-2.7); ALKALINE PHOSPHATASE 131 U/L (46-116); ANION GAP 2 mmol/L (5-15); ASPARTATE AMINO TRANSFERASE 67 U/L (15-37); BILIRUBIN,TOTAL 0.9 MG/DL (0.2-1.0); BLOOD UREA NITROGEN 26 mg/dL (7-18); CARBON DIOXIDE 37 MMOL/L (21-32); CHLORIDE 102 MMOL/L (98-107); CKMB 8.6 NG/ML (0.0-3.6); CREATINE KINASE 135 U/L (26-308); CREATININE 0.9 MG/DL (0.55-1.30); POTASSIUM 3.1 MMOL/L (3.5-5.1); SODIUM 141 MMOL/L (136-145)
[2017-03-05 08:00] VITALS: BP 118/76
--- NOTE | 2017-03-05 08:14 | Pulmonology Progress Note ---
Assessment/Plan Assessment/Plan 1. Acute myocardial ischemia. 2. 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 3. Chronic obstructive pulmonary disease. 4. Moderate protein-calorie malnutrition. 5. Prerenal azotemia. 6. Metabolic encephalopathy. 7. Groin abscesses. 8. Hypertensive heart disease 9. Movement disorder PLAN: 1. Antimicrobials. 2. Bronchodilators. 3. Skin care. 4. Diuretic therapy. 6. Titration of antihypertensives. 7. Continue aspirin prophylaxis. Subjective Interval Events: "I want a cigarette" Respiratory: Denies: shortness of breath Allergies: Coded Allergies: No Known Allergies (Unverified , 02/28/17) Objective Last 24 Hour Vital Signs Date Time Temp Pulse Resp B/P (MAP) Pulse Ox O2 Delivery O2 Flow Rate FiO2 03/05/17 04:00 86 03/05/17 04:00 97.4 86 24 158/94 94 Room Air 03/05/17 00:58 97.9 88 24 146/98 94 Room Air 03/05/17 00:04 84 03/04/17 20:00 103 03/04/17 20:00 97.7 83 24 138/100 94 Room Air 03/04/17 19:00 82 18 Room Air 21 03/04/17 16:00 97.3 89 20 133/91 92 Room Air 03/04/17 15:18 103 03/04/17 12:20 94 03/04/17 12:00 97.2 82 20 141/88 94 Room Air Intake and Output 03/04/17 03/05/17 19:00 07:00 Intake Total 785.000 ml 223.3 ml Output Total 700 ml 500 ml Balance 85.000 ml -276.7 ml Intake Oral 480 ml 100 ml IV Total 305.000 ml 123.3 ml Output Urine Total 700 ml 500 ml # Bowel Movements 3 2 HEENT: normocephalic Respiratory/Chest: lungs clear, decreased breath sounds Cardiovascular: normal rate Laboratory Tests 03/05/17 03:45: Sodium Level 141, Potassium Level 3.1L, Chloride Level 102, Carbon Dioxide Level 37H, Anion Gap 2L, Blood Urea Nitrogen 26H, Creatinine 0.9, Estimat Glomerular Filtration Rate , Glucose Level 109H, Calcium Level 7.0L, Total Bilirubin 0.9, Aspartate Amino Transf (AST/SGOT) 67H, Alanine Aminotransferase ( ALT/SGPT) 53, Alkaline Phosphatase 131H, Total Creatine Kinase 135, Creatine Kinase MB 8.6H, Creatine Kinase MB Relative Index 6.3, Troponin I 0.294H, Total Protein 6.3L, Albumin 1.9L, Globulin 4.4, Albumin/Globulin Ratio 0.4L Current Medications Medications (Trade) Dose Ordered Sig/Vicky Route PRN Reason Start Time Stop Time Status Last Admin Dose Admin Aspirin (ASA) 81 mg DAILY ORAL 03/01/17 13:15 03/31/17 13:14 03/04/17 08:05 Cefepime HCl 2 gm/ Dextrose 55 ml @ 110 mls/hr EVERY 12 HOURS IVPB 02/28/17 23:00 03/07/17 22:59 03/04/17 21:28 Clotrimazole (Lotrimin) 1 applic EVERY 12 HOURS TOPIC 03/01/17 21:00 03/31/17 20:59 03/04/17 21:28 Enoxaparin Sodium (Lovenox) 80 mg Q12HR SUBQ 03/04/17 19:30 04/03/17 19:29 03/04/17 19:53 Furosemide (Lasix) 40 mg EVERY 12 HOURS IV 03/01/17 13:15 03/31/17 13:14 03/04/17 21:24 Lorazepam (Ativan 2mg/ml 1ml) 1 mg Q4H PRN IV For Anxiety 02/28/17 22:00 03/07/17 21:59 03/05/17 03:43 Metronidazole (Flagyl) 500 mg Q8HR ORAL 03/01/17 14:00 03/08/17 13:59 03/05/17 05:42 Vancomycin HCl (Vanco rx to dose) 1 ea DAILY PRN MISC Per rx protocol 02/28/17 23:00 03/30/17 22:59 Vancomycin/Sodium Chloride 250 ml @ 166.667 mls/hr Q12H IVPB 03/04/17 02:00 03/09/17 01:59 03/05/17 01:46 YARY JAUREGUI Mar 05, 2017 08:14
[2017-03-05] MEDS: Aspirin Baby 81mg ORAL SCH (09:01)
[2017-03-05] MEDS: Cefepime HCl 2 GM in D5W 55 ML IVPB SCH ×2 (09:02→20:29)
[2017-03-05] MEDS: Enoxaparin 80mg Inj SUBQ SCH ×2 (09:04→20:31)
[2017-03-05 12:00] VITALS: BP 127/82
--- NOTE | 2017-03-05 13:28 | Nephrology Progress Note ---
Assessment/Plan Problem List: (1) Azotemia (2) CHF (congestive heart failure) (3) Elevated troponin (4) Abscess of groin, left (5) Abscess of groin, right (6) HCAP (healthcare-associated pneumonia) (7) Altered mental status Plan Continue current treatment plan Monitor lites, replace prn Renally dose med, avoid nephrotoxins Monitor intake and output Continue abx per ID Monitor neuro status Continue wound care per recs AM labs Subjective Constitutional: Denies: no symptoms, chills, diaphoresis, fever, malaise, weakness, other HEENT: Denies: no symptoms, eye pain, blurred vision, tearing, double vision, ear pain, ear discharge, nose pain, nose congestion, throat pain, throat swelling, mouth pain, mouth swelling, other Genitourinary: Denies: no symptoms, burning, discharge, frequency, flank pain, hematuria, incontinence, pain, urgency, other Neurologic/Psychiatric: Denies: no symptoms, anxiety, depressed, emotional problems, headache, numbness, paresthesia, pre-existing deficit, seizure, tingling, tremors, weakness, other Subjective Denies discomfort at this time, speech is garbled Objective Objective Last 24 Hour Vital Signs Date Time Temp Pulse Resp B/P (MAP) Pulse Ox O2 Delivery O2 Flow Rate FiO2 03/05/17 12:00 97.8 87 20 127/82 89 Room Air 03/05/17 08:36 86 18 Room Air 03/05/17 08:00 97.0 69 22 118/76 97 Room Air 03/05/17 08:00 75 03/05/17 04:00 86 03/05/17 04:00 97.4 86 24 158/94 94 Room Air 03/05/17 00:58 97.9 88 24 146/98 94 Room Air 03/05/17 00:04 84 03/04/17 20:00 103 03/04/17 20:00 97.7 83 24 138/100 94 Room Air 03/04/17 19:00 82 18 Room Air 21 03/04/17 16:00 97.3 89 20 133/91 92 Room Air 03/04/17 15:18 103 Intake and Output 03/04/17 03/05/17 18:59 06:59 Intake Total 785.000 ml 756.637 ml Output Total 700 ml 500 ml Balance 85.000 ml 256.637 ml Intake Oral 480 ml 100 ml IV Total 305.000 ml 656.637 ml Output Urine Total 700 ml 500 ml # Bowel Movements 3 2 Laboratory Tests 03/05/17 03:45: Sodium Level 141, Potassium Level 3.1L, Chloride Level 102, Carbon Dioxide Level 37H, Anion Gap 2L, Blood Urea Nitrogen 26H, Creatinine 0.9, Estimat Glomerular Filtration Rate , Glucose Level 109H, Calcium Level 7.0L, Total Bilirubin 0.9, Aspartate Amino Transf (AST/SGOT) 67H, Alanine Aminotransferase ( ALT/SGPT) 53, Alkaline Phosphatase 131H, Total Creatine Kinase 135, Creatine Kinase MB 8.6H, Creatine Kinase MB Relative Index 6.3, Troponin I 0.294H, Total Protein 6.3L, Albumin 1.9L, Globulin 4.4, Albumin/Globulin Ratio 0.4L Height (Feet): 5 Height (Inches): 7.00 Weight (Pounds): 171 General Appearance: no apparent distress Neck: non-tender Cardiovascular: normal rate, no JVD Respiratory/Chest: no respiratory distress Abdomen: non tender Extremities: non-tender Neurologic: alert, responsive, normal mood/affect Delisa Miranda N.P. Mar 05, 2017 13:28
--- NOTE | 2017-03-05 15:47 | Infectious Diseases Prog Note ---
Assessment/Plan Problems: (1) Abscess of groin, left Assessment & Plan: improving on vancomycin , cefepime and metronidazol empirically, with antifungal topical , culture of the wound grew serratia licquifance and klebsiella pneumonia , and streptococcus group G , continue local wound care , as per wound care service (2) Abscess of groin, right Assessment & Plan: management the same as above (3) HCAP (healthcare-associated pneumonia) Assessment & Plan: improving on vancomycin and cefepime empirically , monitor CXR (4) CHF (congestive heart failure) Assessment & Plan: continue diuresis , monitor out put and daily weight (5) Hypoglycemia Assessment & Plan: resolved, monitor glucose level closely Subjective Constitutional: Reports: no symptoms HEENT: Reports: no symptoms Respiratory: Reports: no symptoms Breasts: Reports: no symptoms Cardiovascular: Reports: no symptoms Gastrointestinal/Abdominal: Reports: no symptoms Genitourinary: Reports: no symptoms Neurologic: Reports: no symptoms Psychiatric: Reports: no symptoms Skin: Reports: no symptoms Endocrine: Reports: no symptoms Hematologic: Reports: no symptoms Musculoskeletal: Reports: no symptoms Allergies: Coded Allergies: No Known Allergies (Unverified , 02/28/17) Subjective he was up in bed alert, with jerking movements of the head and the shoulders, no fever or chills, no cough or SOB Objective Vital Signs Last 24 Hour Vital Signs Date Time Temp Pulse Resp B/P (MAP) Pulse Ox O2 Delivery O2 Flow Rate FiO2 03/05/17 12:00 97.8 87 20 127/82 89 Room Air 03/05/17 12:00 98 03/05/17 08:36 86 18 Room Air 03/05/17 08:00 97.0 69 22 118/76 97 Room Air 03/05/17 08:00 75 03/05/17 04:00 86 03/05/17 04:00 97.4 86 24 158/94 94 Room Air 03/05/17 00:58 97.9 88 24 146/98 94 Room Air 03/05/17 00:04 84 03/04/17 20:00 103 03/04/17 20:00 97.7 83 24 138/100 94 Room Air 03/04/17 19:00 82 18 Room Air 21 03/04/17 16:00 97.3 89 20 133/91 92 Room Air Height (Feet): 5 Height (Inches): 7.00 Weight (Pounds): 171 General Appearance: WD/WN, no acute distress HEENT: normocephalic, atraumatic, anicteric, mucous membranes moist, PERRL Respiratory/Chest: chest wall non-tender, lungs clear, normal breath sounds, no respiratory distress, no accessory muscle use Cardiovascular: normal peripheral pulses, normal rate, regular rhythm, no gallop/murmur, no JVD Abdomen: normal bowel sounds, soft, non tender, no organomegaly, non distended , no mass, no scars Extremities: no cyanosis, no clubbing Skin: no rash, no lesions, rash, ulcers Neurologic/Psychiatric: alert, responsive Lymphatic: no neck adenopathy, no groin adenopathy Laboratory Tests Test 03/05/17 03:45 Sodium Level 141 MMOL/L (136-145) Potassium Level 3.1 MMOL/L (3.5-5.1) L Chloride Level 102 MMOL/L (98-107) Carbon Dioxide Level 37 MMOL/L (21-32) H Anion Gap 2 mmol/L (5-15) L Blood Urea Nitrogen 26 mg/dL (7-18) H Creatinine 0.9 MG/DL (0.55-1.30) Estimat Glomerular Filtration Rate mL/min (>60) Glucose Level 109 MG/DL (74-106) H Calcium Level 7.0 MG/DL (8.5-10.1) L Total Bilirubin 0.9 MG/DL (0.2-1.0) Aspartate Amino Transf (AST/SGOT) 67 U/L (15-37) H Alanine Aminotransferase (ALT/SGPT) 53 U/L (12-78) Alkaline Phosphatase 131 U/L (46-116) H Total Creatine Kinase 135 U/L (26-308) Creatine Kinase MB 8.6 NG/ML (0.0-3.6) H Creatine Kinase MB Relative Index 6.3 Troponin I 0.294 ng/mL (0.000-0.056) Total Protein 6.3 G/DL (6.4-8.2) L Albumin 1.9 G/DL (3.4-5.0) L Globulin 4.4 g/dL Albumin/Globulin Ratio 0.4 (1.0-2.7) L Current Medications Medications (Trade) Dose Ordered Sig/Vicky Route PRN Reason Start Time Stop Time Status Last Admin Dose Admin Aspirin (ASA) 81 mg DAILY ORAL 03/01/17 13:15 03/31/17 13:14 03/05/17 09:01 Cefepime HCl 2 gm/ Dextrose 55 ml @ 110 mls/hr EVERY 12 HOURS IVPB 02/28/17 23:00 03/07/17 22:59 03/05/17 09:02 Clotrimazole (Lotrimin) 1 applic EVERY 12 HOURS TOPIC 03/01/17 21:00 03/31/17 20:59 03/05/17 09:02 Enoxaparin Sodium (Lovenox) 80 mg Q12HR SUBQ 03/04/17 19:30 04/03/17 19:29 03/05/17 09:04 Furosemide (Lasix) 40 mg EVERY 12 HOURS IV 03/01/17 13:15 03/31/17 13:14 03/05/17 09:06 Lorazepam (Ativan 2mg/ml 1ml) 1 mg Q4H PRN IV For Anxiety 02/28/17 22:00 03/07/17 21:59 03/05/17 03:43 Metronidazole (Flagyl) 500 mg Q8HR ORAL 03/01/17 14:00 03/08/17 13:59 03/05/17 14:02 Potassium Chloride (K-Dur) 20 meq TWICE A DAY ORAL 03/05/17 11:00 04/04/17 10:59 03/05/17 11:39 Vancomycin HCl (Vanco rx to dose) 1 ea DAILY PRN MISC Per rx protocol 02/28/17 23:00 03/30/17 22:59 Vancomycin/Sodium Chloride 250 ml @ 166.667 mls/hr Q12H IVPB 03/04/17 02:00 03/09/17 01:59 03/05/17 14:03 Mike Nguyen M.D. Mar 05, 2017 15:47
[2017-03-05 16:00] VITALS: BP 117/75
--- NOTE | 2017-03-05 17:02 | Cardiac Electrophysiology PN ---
Assessment/Plan Assessment/Plan 1. Acute on chronic diastolic congestive heart failure.On Lasix 40 iv bid. 2. Myocardial ischemia. Couldn't get the stress test done due to noncompliance and lack of consent. No chest pain. Refusing to wear the tele monitoring. 3. Hypokalemia. Replaced 4. Hypomagnesemia. 5. Severe protein-calorie malnutrition. 6. AMS DW RN Subjective Subjective Confused and agitated. Couldn't get consent for stress test. Objective Last 24 Hour Vital Signs Date Time Temp Pulse Resp B/P (MAP) Pulse Ox O2 Delivery O2 Flow Rate FiO2 03/05/17 12:00 97.8 87 20 127/82 89 Room Air 03/05/17 12:00 98 03/05/17 08:36 86 18 Room Air 21 03/05/17 08:00 97.0 69 22 118/76 97 Room Air 03/05/17 08:00 75 03/05/17 04:00 86 03/05/17 04:00 97.4 86 24 158/94 94 Room Air 03/05/17 00:58 97.9 88 24 146/98 94 Room Air 03/05/17 00:04 84 03/04/17 20:00 103 03/04/17 20:00 97.7 83 24 138/100 94 Room Air 03/04/17 19:00 82 18 Room Air 21 Intake and Output 03/04/17 03/05/17 19:00 07:00 Intake Total 785.000 ml 756.637 ml Output Total 700 ml 500 ml Balance 85.000 ml 256.637 ml Intake Oral 480 ml 100 ml IV Total 305.000 ml 656.637 ml Output Urine Total 700 ml 500 ml # Bowel Movements 3 2 Laboratory Tests Test 03/05/17 03:45 Sodium Level 141 MMOL/L (136-145) Potassium Level 3.1 MMOL/L (3.5-5.1) L Chloride Level 102 MMOL/L (98-107) Carbon Dioxide Level 37 MMOL/L (21-32) H Anion Gap 2 mmol/L (5-15) L Blood Urea Nitrogen 26 mg/dL (7-18) H Creatinine 0.9 MG/DL (0.55-1.30) Estimat Glomerular Filtration Rate mL/min (>60) Glucose Level 109 MG/DL (74-106) H Calcium Level 7.0 MG/DL (8.5-10.1) L Total Bilirubin 0.9 MG/DL (0.2-1.0) Aspartate Amino Transf (AST/SGOT) 67 U/L (15-37) H Alanine Aminotransferase (ALT/SGPT) 53 U/L (12-78) Alkaline Phosphatase 131 U/L (46-116) H Total Creatine Kinase 135 U/L (26-308) Creatine Kinase MB 8.6 NG/ML (0.0-3.6) H Creatine Kinase MB Relative Index 6.3 Troponin I 0.294 ng/mL (0.000-0.056) Total Protein 6.3 G/DL (6.4-8.2) L Albumin 1.9 G/DL (3.4-5.0) L Globulin 4.4 g/dL Albumin/Globulin Ratio 0.4 (1.0-2.7) L Objective LUNGS: Coarse breath sounds. HEART: Regular rhythm and rate. Normal S1 and S2. ABDOMEN: Soft. EXTREMITIES: 1 plus edema. Bilateral groin ulceration sites without drainage. ZANA CHINCHILLA Mar 05, 2017 17:02
--- NOTE | 2017-03-05 17:45 | Progress Note ---
DATE: 03/05/2017 SUBJECTIVE: This is an elderly male, who is sitting in the bed, was found has a DVT. He was started on Lovenox. The patient is otherwise comfortable. His leg wound is also improving. OBJECTIVE: VITAL SIGNS: Blood pressure is 130/70, pulse 74, and respirations 18. SKIN: Good skin turgor. HEENT: AT/NC. EOMI. PERRLA. NECK: Supple. No JVD. CHEST: Bilaterally clear. CARDIOVASCULAR: Regular rhythm. No gallop. No murmur. ABDOMEN: Soft. EXTREMITIES: CCE. NEUROLOGICAL: The patient has no focal deficit. ASSESSMENT: 1. Acute deep vein thrombosis. 2. Generalized weakness. 3. Altered mental status. PLAN: Continue current medical treatment. Continue Lovenox. Continue supportive treatment. Discussed with the charge nurse. Mike Oneil M.D. DR: CHERELLE JOB#: [id number] CC:
[2017-03-05 20:00] VITALS: BP 136/97
--- NOTE | 2017-03-05 23:30 | Progress Note ---
DATE: 03/05/2017 CARDIOLOGY PROGRESS NOTE SUBJECTIVE: Unable to consent for stress test. No new complaints of shortness of breath or chest pain. Anxious to have a cigarette. OBJECTIVE: VITAL SIGNS: Blood pressure 138/100 to 158/94, pulse 86, respirations 24, and afebrile. LUNGS: Few rhonchi. HEART: Regular rhythm and rate. Normal S1 and S2. ABDOMEN: Soft. EXTREMITIES: 1+ edema. LABORATORY DATA: Sodium 141, potassium 3.1, bicarbonate 37, BUN 23, and creatinine 0.9. Troponin down to 0.294. IMPRESSION: 1. Hypokalemia. 2. Hypertensive heart disease. 3. Persistent myocardial ischemia. 4. Acute on chronic diastolic congestive heart failure. 5. Chronic venous insufficiency. PLAN: 1. Continue diuresis. 2. Stress test once consent is obtainable. 3. Replace potassium and magnesium as needed. 4. Advance antihypertensive therapy and continue current antianginal regimen. Rehan Grove M.D. DR: Altagracia JOB#: [id number] CC:
[2017-03-06] VITALS: BP 136/97
[2017-03-06] MEDS: LORazepam Inj 2mg/ml 1ml IV PRN ×2 (01:19→21:11)
[2017-03-06] MEDS: Vancomycin 750mg/NS 250ml IVPB SCH ×2 (02:10→14:44)
[2017-03-06 04:00] VITALS: BP 110/80
[2017-03-06] MEDS: metroNIDAZOLE 500mg tab ORAL SCH ×3 (06:00→23:16)
[2017-03-06 08:00] VITALS: BP 151/107
[2017-03-06] MEDS: Aspirin Baby 81mg ORAL SCH (09:00)
[2017-03-06 09:52] LABS: BASOPHILS % (AUTO) 1.5 % (0.0-2.0); HEMATOCRIT 39.4 % (42.0-52.0); HEMOGLOBIN 12.2 G/DL (14.2-18.0); LYMPHOCYTES % (AUTO) 24.5 % (20.0-45.0); MEAN CORPUSCULAR VOLUME 98 FL (80-99); MONOCYTES % (AUTO) 9.4 % (1.0-10.0); NEUTROPHILS % (AUTO) 64.6 % (45.0-75.0); PLATELET COUNT 314 K/UL (150-450); RED BLOOD COUNT 4.02 M/UL (4.70-6.10); RED CELL DISTRIBUTION WIDTH 14.2 % (11.6-14.8); WHITE BLOOD COUNT 4.6 K/UL (4.8-10.8)
[2017-03-06 10:04] LABS: ANION GAP 0 mmol/L (5-15); BLOOD UREA NITROGEN 28 mg/dL (7-18); CALCIUM 6.9 MG/DL (8.5-10.1); CARBON DIOXIDE 36 MMOL/L (21-32); CHLORIDE 105 MMOL/L (98-107); CREATININE 0.8 MG/DL (0.55-1.30); POTASSIUM 3.8 MMOL/L (3.5-5.1); SODIUM 141 MMOL/L (136-145)
[2017-03-06] MEDS: Metoprolol Succinate XL 25mg tab ORAL SCH (10:05)
[2017-03-06] MEDS: Enoxaparin 80mg Inj SUBQ SCH ×2 (10:08→21:39)
[2017-03-06] MEDS: Cefepime HCl 2 GM in D5W 55 ML IVPB SCH ×2 (10:20→21:41)
--- NOTE | 2017-03-06 10:49 | Diagnostic Imaging Report ---
APPROVED REPORT CPT Code: 80353 Present Symptoms Comments: R/O RVT RIGHT LEG: Venous imaging reveals recanalized chronic thrombus in the superficial femoral and popliteal veins. The remainder of the deep venous system is within normal limits. There is no evidence of thrombus in the common femoral, or calf veins. The greater saphenous vein is also within normal limits. Doppler indicates normal spontaneous flow within these segments. LEFT LEG: Venous imaging reveals recanalized chronic thrombus in the superficial femoral vein. The remainder of the deep venous system is within normal limits. There is no evidence of thrombus in the common femoral, popliteal or calf veins. The greater saphenous vein is also within normal limits. Doppler indicates normal spontaneous flow within these segments. There is no evidence of acute deep vein thrombosis.
[2017-03-06 12:00] VITALS: BP 151/101
--- NOTE | 2017-03-06 12:10 | Pulmonology Progress Note ---
Assessment/Plan Assessment/Plan 1. Acute myocardial ischemia. 2. 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 3. Chronic obstructive pulmonary disease. 4. Moderate protein-calorie malnutrition. 5. Prerenal azotemia. 6. Metabolic encephalopathy. 7. Groin abscesses. 8. Hypertensive heart disease 9. 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 Antimicrobials. 2. Bronchodilators. 3. DC BiPAP, fighting it 4. Diuretic therapy. 6. Titration of antihypertensives. 7. Continue aspirin prophylaxis. Subjective ROS Limited/Unobtainable: Yes Allergies: Coded Allergies: No Known Allergies (Unverified , 02/28/17) Objective Last 24 Hour Vital Signs Date Time Temp Pulse Resp B/P (MAP) Pulse Ox O2 Delivery O2 Flow Rate FiO2 03/06/17 10:05 95 151/107 03/06/17 08:00 95 03/06/17 08:00 97.7 97 18 151/107 97 Bi-pap 03/06/17 07:26 88 14 97 Facial 30 03/06/17 04:38 96 25 100 Facial 30 03/06/17 04:20 30 03/06/17 04:00 97.2 98 21 110/80 98 Bi-pap 03/06/17 04:00 126 03/06/17 00:00 91 03/05/17 20:00 97.2 95 22 136/97 94 Room Air 03/05/17 16:00 97.4 96 20 117/75 90 Room Air Intake and Output 03/05/17 03/06/17 19:00 07:00 Intake Total 1200 ml 665.0 ml Output Total 4 ml 5 ml Balance 1196 ml 660.0 ml Intake Oral 1200 ml 360 ml IV Total 305.0 ml Output Urine Total 4 ml 5 ml # Bowel Movements 1 General Appearance: no acute distress - agitated Respiratory/Chest: lungs clear, decreased breath sounds Cardiovascular: normal rate Laboratory Tests 03/06/17 09:25: White Blood Count 4.6L, Red Blood Count 4.02L, Hemoglobin 12.2L, Hematocrit 39.4L, Mean Corpuscular Volume 98, Mean Corpuscular Hemoglobin 30.4, Mean Corpuscular Hemoglobin Concent 31.0L, Red Cell Distribution Width 14.2, Platelet Count 314, Mean Platelet Volume 8.9, Neutrophils (%) (Auto) 64.6, Lymphocytes (%) (Auto) 24.5, Monocytes (%) (Auto) 9.4, Eosinophils (%) (Auto) 0.0, Basophils (%) (Auto) 1.5, Sodium Level 141, Potassium Level 3.8, Chloride Level 105, Carbon Dioxide Level 36H, Anion Gap 0L, Blood Urea Nitrogen 28H, Creatinine 0.8, Estimat Glomerular Filtration Rate , Glucose Level 110H, Calcium Level 6.9L, Magnesium Level 2.0 Current Medications Medications (Trade) Dose Ordered Sig/Vicky Route PRN Reason Start Time Stop Time Status Last Admin Dose Admin Aspirin (ASA) 81 mg DAILY ORAL 03/01/17 13:15 03/31/17 13:14 03/06/17 09:00 Cefepime HCl 2 gm/ Dextrose 55 ml @ 110 mls/hr EVERY 12 HOURS IVPB 02/28/17 23:00 03/07/17 22:59 03/06/17 10:20 Clotrimazole (Lotrimin) 1 applic EVERY 12 HOURS TOPIC 03/01/17 21:00 03/31/17 20:59 03/06/17 10:06 Enoxaparin Sodium (Lovenox) 80 mg Q12HR SUBQ 03/04/17 19:30 04/03/17 19:29 03/06/17 10:08 Furosemide (Lasix) 40 mg EVERY 12 HOURS IV 03/01/17 13:15 03/31/17 13:14 03/06/17 10:05 Lorazepam (Ativan 2mg/ml 1ml) 1 mg Q4H PRN IV For Anxiety 02/28/17 22:00 03/07/17 21:59 03/06/17 01:19 Metoprolol Succinate (Toprol XL) 25 mg DAILY ORAL 03/06/17 09:00 04/05/17 08:59 03/06/17 10:05 Metronidazole (Flagyl) 500 mg Q8HR ORAL 03/01/17 14:00 03/08/17 13:59 03/05/17 14:02 Potassium Chloride (K-Dur) 20 meq TWICE A DAY ORAL 03/05/17 11:00 04/04/17 10:59 03/06/17 10:05 Risperidone (RisperDAL) 2 mg BEDTIME ORAL 03/06/17 21:00 04/05/17 20:59 Vancomycin HCl (Vanco rx to dose) 1 ea DAILY PRN MISC Per rx protocol 02/28/17 23:00 03/30/17 22:59 Vancomycin/Sodium Chloride 250 ml @ 166.667 mls/hr Q12H IVPB 03/04/17 02:00 03/09/17 01:59 03/06/17 02:10 YARY JAUREGUI Mar 06, 2017 12:10
[2017-03-06] MEDS ORDERED: THERA M PLUS T1 EAC2 PO (13:21)
[2017-03-06] MEDS ORDERED: LIPITOR80 MG ORAL (13:21)
[2017-03-06] MEDS ORDERED: AMARYL1 MG ORAL (13:21)
[2017-03-06] MEDS ORDERED: ZYPREXA10 MG ORAL (13:21)
[2017-03-06] MEDS ORDERED: OMEPRAZOLE20 M2 ORAL (13:21)
[2017-03-06] MEDS ORDERED: COLACE100 MG ORAL (13:21)
[2017-03-06] MEDS ORDERED: LISINOPRIL5 MG ORAL (13:21)
[2017-03-06] MEDS ORDERED: NOVOLOG100 UNIT/5 (13:21)
[2017-03-06] MEDS ORDERED: DEPAKOTE125 MG PO (13:21)
[2017-03-06] MEDS ORDERED: LANTUS SOL100 UNIT/1 SUBQ (13:21)
[2017-03-06] MEDS ORDERED: NORVASC5 MG ORAL (13:21)
--- NOTE | 2017-03-06 15:51 | Consultation ---
History of Present Illness General Date patient seen: Mar 05, 2017 Chief Complaint: Abnormal Labs Present Illness HPI 76-year-old male, with hx of schizoaffective d/o, htn, who came to the emergency room for altered mental status. the pt pw agitation, disorganized speech, behavior, and delusional. Memory, attention, and concentration impairment. the pt is on 1:1. Allergies: Coded Allergies: No Known Allergies (Unverified , 02/28/17) Medication History Scheduled Amlodipine Besylate (Norvasc), 5 MG ORAL DAILY, (Reported) Atorvastatin (Lipitor), 10 MG ORAL BEDTIME, (Reported) Divalproex Sodium (Depakote), 1,000 MG PO DAILY, (Reported) Docusate Sodium* (Colace*), 200 MG ORAL DAILY, (Reported) Glimepiride* (Amaryl*), 1 MG ORAL BEFORE BREAKFAST, (Reported) Insulin Aspart (Novolog), BEFORE MEALS AND HS, (Reported) Insulin Glargine (Lantus), 10 SUBQ BEDTIME, (Reported) Lisinopril (Lisinopril*), 5 MG ORAL DAILY, (Reported) Multivits,Ca,Minerals/Iron/FA (Thera M Plus Tablet), 1 EACH PO DAILY, (Reported) Olanzapine* (Zyprexa*), 10 MG ORAL HS, (Reported) Omeprazole (Omeprazole), 20 MG ORAL DAILY, (Reported) Patient History Limited by: medical condition History Provided By: Patient, Medical Record, PMD Healthcare decision maker N Resuscitation status Full Code Advanced Directive on File Past Medical/Surgical History Past Medical/Surgical History: (1) CHF (congestive heart failure) (2) Hypoglycemia (3) Abscess of groin, left (4) Abscess of groin, right (5) HCAP (healthcare-associated pneumonia) (6) Azotemia (7) Elevated troponin (8) Altered mental status Review of Systems Psychiatric: Reports: prior hx, anxiety, depressed feelings, emotional problems , hallucinations Physical Exam General Appearance: no apparent distress, alert, confused, agitated Neurologic: alert, responsive, disoriented, depressed affect Last 24 Hour Vital Signs Date Time Temp Pulse Resp B/P (MAP) Pulse Ox O2 Delivery O2 Flow Rate FiO2 03/06/17 10:05 95 151/107 03/06/17 08:00 95 03/06/17 08:00 97.7 97 18 151/107 97 Bi-pap 03/06/17 07:26 88 14 97 Facial 30 03/06/17 04:38 96 25 100 Facial 30 03/06/17 04:20 30 03/06/17 04:00 97.2 98 21 110/80 98 Bi-pap 03/06/17 04:00 126 03/06/17 00:00 91 03/05/17 20:00 97.2 95 22 136/97 94 Room Air 03/05/17 16:00 97.4 96 20 117/75 90 Room Air Intake and Output 03/05/17 03/06/17 19:00 07:00 Intake Total 1200 ml 665.0 ml Output Total 4 ml 5 ml Balance 1196 ml 660.0 ml Intake Oral 1200 ml 360 ml IV Total 305.0 ml Output Urine Total 4 ml 5 ml # Bowel Movements 1 Laboratory Tests Test 03/06/17 09:25 White Blood Count 4.6 K/UL (4.8-10.8) L Red Blood Count 4.02 M/UL (4.70-6.10) L Hemoglobin 12.2 G/DL (14.2-18.0) L Hematocrit 39.4 % (42.0-52.0) L Mean Corpuscular Volume 98 FL (80-99) Mean Corpuscular Hemoglobin 30.4 PG (27.0-31.0) Mean Corpuscular Hemoglobin Concent 31.0 G/DL (32.0-36.0) L Red Cell Distribution Width 14.2 % (11.6-14.8) Platelet Count 314 K/UL (150-450) Mean Platelet Volume 8.9 FL (6.5-10.1) Neutrophils (%) (Auto) 64.6 % (45.0-75.0) Lymphocytes (%) (Auto) 24.5 % (20.0-45.0) Monocytes (%) (Auto) 9.4 % (1.0-10.0) Eosinophils (%) (Auto) 0.0 % (0.0-3.0) Basophils (%) (Auto) 1.5 % (0.0-2.0) Sodium Level 141 MMOL/L (136-145) Potassium Level 3.8 MMOL/L (3.5-5.1) Chloride Level 105 MMOL/L (98-107) Carbon Dioxide Level 36 MMOL/L (21-32) H Anion Gap 0 mmol/L (5-15) L Blood Urea Nitrogen 28 mg/dL (7-18) H Creatinine 0.8 MG/DL (0.55-1.30) Estimat Glomerular Filtration Rate mL/min (>60) Glucose Level 110 MG/DL (74-106) H Calcium Level 6.9 MG/DL (8.5-10.1) L Magnesium Level 2.0 MG/DL (1.8-2.4) Height (Feet): 5 Height (Inches): 7.00 Weight (Pounds): 171 Medications Current Medications Medications (Trade) Dose Ordered Sig/Vicky Route PRN Reason Start Time Stop Time Status Last Admin Dose Admin Aspirin (ASA) 81 mg DAILY ORAL 03/01/17 13:15 03/31/17 13:14 03/06/17 09:00 Cefepime HCl 2 gm/ Dextrose 55 ml @ 110 mls/hr EVERY 12 HOURS IVPB 02/28/17 23:00 03/07/17 22:59 03/06/17 10:20 Clotrimazole (Lotrimin) 1 applic EVERY 12 HOURS TOPIC 03/01/17 21:00 03/31/17 20:59 03/06/17 10:06 Enoxaparin Sodium (Lovenox) 80 mg Q12HR SUBQ 03/04/17 19:30 04/03/17 19:29 03/06/17 10:08 Furosemide (Lasix) 40 mg EVERY 12 HOURS IV 03/01/17 13:15 03/31/17 13:14 03/06/17 10:05 Lorazepam (Ativan 2mg/ml 1ml) 1 mg Q4H PRN IV For Anxiety 02/28/17 22:00 03/07/17 21:59 03/06/17 01:19 Metoprolol Succinate (Toprol XL) 25 mg DAILY ORAL 03/06/17 09:00 04/05/17 08:59 03/06/17 10:05 Metronidazole (Flagyl) 500 mg Q8HR ORAL 03/01/17 14:00 03/08/17 13:59 03/06/17 14:47 Potassium Chloride (K-Dur) 20 meq TWICE A DAY ORAL 03/05/17 11:00 04/04/17 10:59 03/06/17 10:05 Risperidone (RisperDAL) 2 mg BEDTIME ORAL 03/06/17 21:00 04/05/17 20:59 Vancomycin HCl (Vanco rx to dose) 1 ea DAILY PRN MISC Per rx protocol 02/28/17 23:00 03/30/17 22:59 Vancomycin/Sodium Chloride 250 ml @ 166.667 mls/hr Q12H IVPB 03/04/17 02:00 03/09/17 01:59 03/06/17 14:44 Assessment/Plan Status: deteriorating Assessment/Plan schizoaffective d/o agitation -depakote 500mg po bid -zyprexa 10mg qhs -cont 1:1 Saul Munguia M.D. Mar 06, 2017 15:51
[2017-03-06 16:00] VITALS: BP 140/95
--- NOTE | 2017-03-06 16:07 | Infectious Diseases Prog Note ---
Assessment/Plan Problems: (1) Abscess of groin, left Assessment & Plan: improving on vancomycin , cefepime and metronidazol empirically, with antifungal topical , culture of the wound grew serratia licquifance and klebsiella pneumonia , and streptococcus group G , continue local wound care , as per wound care service (2) Abscess of groin, right Assessment & Plan: management the same as above (3) HCAP (healthcare-associated pneumonia) Assessment & Plan: improving on vancomycin and cefepime empirically , monitor CXR (4) CHF (congestive heart failure) Assessment & Plan: continue diuresis , monitor out put and daily weight (5) Hypoglycemia Assessment & Plan: resolved, monitor glucose level closely (6) Agitated Assessment & Plan: resume psych meds , consult psychiatrist Subjective ROS Limited/Unobtainable: Yes Allergies: Coded Allergies: No Known Allergies (Unverified , 02/28/17) Subjective he was up in bed agitated , with jerking movements of the head and the shoulders , no fever or chills, no cough or SOB Objective Vital Signs Last 24 Hour Vital Signs Date Time Temp Pulse Resp B/P (MAP) Pulse Ox O2 Delivery O2 Flow Rate FiO2 03/06/17 10:05 95 151/107 03/06/17 08:00 95 03/06/17 08:00 97.7 97 18 151/107 97 Bi-pap 03/06/17 07:26 88 14 97 Facial 30 03/06/17 04:38 96 25 100 Facial 30 03/06/17 04:20 30 03/06/17 04:00 97.2 98 21 110/80 98 Bi-pap 03/06/17 04:00 126 03/06/17 00:00 91 03/05/17 20:00 97.2 95 22 136/97 94 Room Air Height (Feet): 5 Height (Inches): 7.00 Weight (Pounds): 171 General Appearance: WD/WN, no acute distress HEENT: normocephalic, atraumatic, anicteric, mucous membranes moist, no JVD Respiratory/Chest: chest wall non-tender, lungs clear, normal breath sounds, no respiratory distress, no accessory muscle use Cardiovascular: normal peripheral pulses, normal rate, regular rhythm, no gallop/murmur, no JVD Abdomen: normal bowel sounds, soft, non tender, no organomegaly, non distended , no mass, no scars Extremities: no cyanosis, no clubbing Skin: no rash, no lesions, no ulcers Neurologic/Psychiatric: alert, responsive Lymphatic: no neck adenopathy, no groin adenopathy Musculoskeletal: normal muscle bulk Laboratory Tests Test 03/06/17 09:25 White Blood Count 4.6 K/UL (4.8-10.8) L Red Blood Count 4.02 M/UL (4.70-6.10) L Hemoglobin 12.2 G/DL (14.2-18.0) L Hematocrit 39.4 % (42.0-52.0) L Mean Corpuscular Volume 98 FL (80-99) Mean Corpuscular Hemoglobin 30.4 PG (27.0-31.0) Mean Corpuscular Hemoglobin Concent 31.0 G/DL (32.0-36.0) L Red Cell Distribution Width 14.2 % (11.6-14.8) Platelet Count 314 K/UL (150-450) Mean Platelet Volume 8.9 FL (6.5-10.1) Neutrophils (%) (Auto) 64.6 % (45.0-75.0) Lymphocytes (%) (Auto) 24.5 % (20.0-45.0) Monocytes (%) (Auto) 9.4 % (1.0-10.0) Eosinophils (%) (Auto) 0.0 % (0.0-3.0) Basophils (%) (Auto) 1.5 % (0.0-2.0) Sodium Level 141 MMOL/L (136-145) Potassium Level 3.8 MMOL/L (3.5-5.1) Chloride Level 105 MMOL/L (98-107) Carbon Dioxide Level 36 MMOL/L (21-32) H Anion Gap 0 mmol/L (5-15) L Blood Urea Nitrogen 28 mg/dL (7-18) H Creatinine 0.8 MG/DL (0.55-1.30) Estimat Glomerular Filtration Rate mL/min (>60) Glucose Level 110 MG/DL (74-106) H Calcium Level 6.9 MG/DL (8.5-10.1) L Magnesium Level 2.0 MG/DL (1.8-2.4) Current Medications Medications (Trade) Dose Ordered Sig/Vicky Route PRN Reason Start Time Stop Time Status Last Admin Dose Admin Aspirin (ASA) 81 mg DAILY ORAL 03/01/17 13:15 03/31/17 13:14 03/06/17 09:00 Cefepime HCl 2 gm/ Dextrose 55 ml @ 110 mls/hr EVERY 12 HOURS IVPB 02/28/17 23:00 03/07/17 22:59 03/06/17 10:20 Clotrimazole (Lotrimin) 1 applic EVERY 12 HOURS TOPIC 03/01/17 21:00 03/31/17 20:59 03/06/17 10:06 Divalproex Sodium (Depakote) 500 mg EVERY 12 HOURS ORAL 03/06/17 21:00 04/05/17 20:59 Enoxaparin Sodium (Lovenox) 80 mg Q12HR SUBQ 03/04/17 19:30 04/03/17 19:29 03/06/17 10:08 Furosemide (Lasix) 40 mg EVERY 12 HOURS IV 03/01/17 13:15 03/31/17 13:14 03/06/17 10:05 Lorazepam (Ativan 2mg/ml 1ml) 1 mg Q4H PRN IV For Anxiety 02/28/17 22:00 03/07/17 21:59 03/06/17 01:19 Metoprolol Succinate (Toprol XL) 25 mg DAILY ORAL 03/06/17 09:00 04/05/17 08:59 03/06/17 10:05 Metronidazole (Flagyl) 500 mg Q8HR ORAL 03/01/17 14:00 03/08/17 13:59 03/06/17 14:47 Olanzapine (ZyPREXA) 10 mg BEDTIME ORAL 03/06/17 21:00 04/05/17 20:59 Potassium Chloride (K-Dur) 20 meq TWICE A DAY ORAL 03/05/17 11:00 04/04/17 10:59 03/06/17 10:05 Vancomycin HCl (Vanco rx to dose) 1 ea DAILY PRN MISC Per rx protocol 02/28/17 23:00 03/30/17 22:59 Vancomycin/Sodium Chloride 250 ml @ 166.667 mls/hr Q12H IVPB 03/04/17 02:00 03/09/17 01:59 03/06/17 14:44 Mike Nguyen M.D. Mar 06, 2017 16:07
--- NOTE | 2017-03-06 17:13 | Cardiac Electrophysiology PN ---
Assessment/Plan Assessment/Plan 1. Acute on chronic diastolic congestive heart failure.On Lasix 40 iv bid and Toprol XL 25. 2. Myocardial ischemia. Couldn't get the stress test done due to noncompliance and lack of consent. No chest pain. Refusing to wear the tele monitoring. 3. Hypokalemia. Replaced 4. Hypomagnesemia. 5. Severe protein-calorie malnutrition. 6. AMS DW RN Subjective Subjective Confused. Family at bedside.In SR. Stress test not done yet for lack of consent.. Objective Last 24 Hour Vital Signs Date Time Temp Pulse Resp B/P (MAP) Pulse Ox O2 Delivery O2 Flow Rate FiO2 03/06/17 10:05 95 151/107 03/06/17 08:00 95 03/06/17 08:00 97.7 97 18 151/107 97 Bi-pap 03/06/17 07:26 88 14 97 Facial 30 03/06/17 04:38 96 25 100 Facial 30 03/06/17 04:20 30 03/06/17 04:00 97.2 98 21 110/80 98 Bi-pap 03/06/17 04:00 126 03/06/17 00:00 91 03/05/17 20:00 97.2 95 22 136/97 94 Room Air Intake and Output 03/05/17 03/06/17 19:00 07:00 Intake Total 1200 ml 665.0 ml Output Total 4 ml 5 ml Balance 1196 ml 660.0 ml Intake Oral 1200 ml 360 ml IV Total 305.0 ml Output Urine Total 4 ml 5 ml # Bowel Movements 1 Laboratory Tests Test 03/06/17 09:25 White Blood Count 4.6 K/UL (4.8-10.8) L Red Blood Count 4.02 M/UL (4.70-6.10) L Hemoglobin 12.2 G/DL (14.2-18.0) L Hematocrit 39.4 % (42.0-52.0) L Mean Corpuscular Volume 98 FL (80-99) Mean Corpuscular Hemoglobin 30.4 PG (27.0-31.0) Mean Corpuscular Hemoglobin Concent 31.0 G/DL (32.0-36.0) L Red Cell Distribution Width 14.2 % (11.6-14.8) Platelet Count 314 K/UL (150-450) Mean Platelet Volume 8.9 FL (6.5-10.1) Neutrophils (%) (Auto) 64.6 % (45.0-75.0) Lymphocytes (%) (Auto) 24.5 % (20.0-45.0) Monocytes (%) (Auto) 9.4 % (1.0-10.0) Eosinophils (%) (Auto) 0.0 % (0.0-3.0) Basophils (%) (Auto) 1.5 % (0.0-2.0) Sodium Level 141 MMOL/L (136-145) Potassium Level 3.8 MMOL/L (3.5-5.1) Chloride Level 105 MMOL/L (98-107) Carbon Dioxide Level 36 MMOL/L (21-32) H Anion Gap 0 mmol/L (5-15) L Blood Urea Nitrogen 28 mg/dL (7-18) H Creatinine 0.8 MG/DL (0.55-1.30) Estimat Glomerular Filtration Rate mL/min (>60) Glucose Level 110 MG/DL (74-106) H Calcium Level 6.9 MG/DL (8.5-10.1) L Magnesium Level 2.0 MG/DL (1.8-2.4) Objective LUNGS: Coarse breath sounds. HEART: Regular rhythm and rate. Normal S1 and S2. ABDOMEN: Soft. EXTREMITIES: 1 plus edema. Bilateral groin ulceration sites ZANA CHINCHILLA Mar 06, 2017 17:13
--- NOTE | 2017-03-06 19:00 | Progress Note ---
DATE: 03/06/2017 CARDIOLOGY PROGRESS NOTE SUBJECTIVE: No chest pain. No shortness of breath. He continues on IV diuretic therapy. Stress test was not performed because the patient was unable to give an informed consent. OBJECTIVE: VITAL SIGNS: Blood pressure 110/80 to 150/107, heart rate 95, respiratory rate 18, and afebrile. LUNGS: Bilateral breath sounds. Few rales. HEART: Regular rhythm and rate. Normal S1 and S2. A 1/6 systolic apical murmur. ABDOMEN: Soft. EXTREMITIES: With 1+ dependent edema. LABORATORY AND DIAGNOSTIC DATA: Potassium 3.8, BUN 28 and creatinine 0.8. White count 4.6 and hemoglobin 12.2. IMPRESSION: 1. Acute on chronic diastolic congestive heart failure. 2. Chronic venous insufficiency. 3. Healthcare-acquired pneumonia. 4. Groin abscesses. 5. Acute coronary insufficiency. 6. Hypokalemia and hypomagnesemia. 7. Severe protein-calorie malnutrition. 8. Toxic encephalopathy. 9. Hypertensive heart disease with labile blood pressure. PLAN: Continue with diureses. Optimize antihypertensive regimen. Medical therapy if unable gain family consent for stress testing. Rehan Grove M.D. DR: TIN JOB#: [id number] CC:
[2017-03-06 20:00] VITALS: BP 139/81
[2017-03-06] MEDS: Depakote 500mg tab ORAL SCH (21:12)
--- NOTE | 2017-03-06 21:22 | Nephrology Progress Note ---
Assessment/Plan Problem List: (1) CHF (congestive heart failure) (2) Hypoglycemia (3) Abscess of groin, left (4) Abscess of groin, right (5) HCAP (healthcare-associated pneumonia) (6) Azotemia (7) Elevated troponin (8) Altered mental status Plan abx per id. wound care. pulm id and cardio following. Subjective Subjective no cough or SOB. Objective Objective Last 24 Hour Vital Signs Date Time Temp Pulse Resp B/P (MAP) Pulse Ox O2 Delivery O2 Flow Rate FiO2 03/06/17 20:12 Nasal Cannula 3.0 30 03/06/17 20:12 93 Nasal Cannula 3.0 30 03/06/17 16:00 86 03/06/17 16:00 97.5 86 18 140/95 93 Nasal Cannula 3.0 03/06/17 12:00 97.9 92 20 151/101 94 Nasal Cannula 3.0 03/06/17 12:00 91 03/06/17 10:05 95 151/107 03/06/17 08:00 95 03/06/17 08:00 97.7 97 18 151/107 97 Bi-pap 03/06/17 07:26 88 14 97 Facial 30 03/06/17 04:38 96 25 100 Facial 30 03/06/17 04:20 30 03/06/17 04:00 97.2 98 21 110/80 98 Bi-pap 03/06/17 04:00 126 03/06/17 00:00 91 Intake and Output 03/05/17 03/06/17 19:00 07:00 Intake Total 1200 ml 665.0 ml Output Total 4 ml 5 ml Balance 1196 ml 660.0 ml Intake Oral 1200 ml 360 ml IV Total 305.0 ml Output Urine Total 4 ml 5 ml # Bowel Movements 1 Laboratory Tests 03/06/17 09:25: White Blood Count 4.6L, Red Blood Count 4.02L, Hemoglobin 12.2L, Hematocrit 39.4L, Mean Corpuscular Volume 98, Mean Corpuscular Hemoglobin 30.4, Mean Corpuscular Hemoglobin Concent 31.0L, Red Cell Distribution Width 14.2, Platelet Count 314, Mean Platelet Volume 8.9, Neutrophils (%) (Auto) 64.6, Lymphocytes (%) (Auto) 24.5, Monocytes (%) (Auto) 9.4, Eosinophils (%) (Auto) 0.0, Basophils (%) (Auto) 1.5, Sodium Level 141, Potassium Level 3.8, Chloride Level 105, Carbon Dioxide Level 36H, Anion Gap 0L, Blood Urea Nitrogen 28H, Creatinine 0.8, Estimat Glomerular Filtration Rate , Glucose Level 110H, Calcium Level 6.9L, Magnesium Level 2.0 Height (Feet): 5 Height (Inches): 7.00 Weight (Pounds): 171 JEYSON NAVAS Mar 06, 2017 21:22
--- NOTE | 2017-03-06 23:30 | Progress Note ---
DATE: 03/06/2017 SUBJECTIVE: This is an elderly male, currently in bed. Currently, comfortable. OBJECTIVE: VITAL SIGNS: Stable. CHEST: Bilaterally clear. CARDIOVASCULAR: Regular rhythm. ABDOMEN: Soft. EXTREMITIES: CCE. ASSESSMENT: 1. Deep venous thrombosis. 2. Pneumonia. 3. Altered mental status. 4. Decubitus. PLAN: Continue antibiotic. Continue wound care. Bronchodilator treatment. Lovenox and Coumadin. Mike Oneil M.D. DR: Thong JOB#: [id number] CC:
[2017-03-07] VITALS (7 sets, daily range): BP systolic 133–145; BP diastolic 88–96
[2017-03-07] MEDS: LORazepam Inj 2mg/ml 1ml IV PRN (01:23)
[2017-03-07] MEDS: Vancomycin 750mg/NS 250ml IVPB SCH ×2 (01:52→14:01)
[2017-03-07] MEDS: metroNIDAZOLE 500mg tab ORAL SCH ×3 (05:32→21:51)
[2017-03-07] MEDS: Cefepime HCl 2 GM in D5W 55 ML IVPB SCH (09:14)
[2017-03-07] MEDS: Enoxaparin 80mg Inj SUBQ SCH ×2 (09:14→21:53)
[2017-03-07] MEDS: Metoprolol Succinate XL 25mg tab ORAL SCH (09:15)
[2017-03-07] MEDS: Aspirin Baby 81mg ORAL SCH (09:15)
[2017-03-07] MEDS: Depakote 500mg tab ORAL SCH ×2 (09:15→21:51)
--- NOTE | 2017-03-07 14:02 | Pulmonology Progress Note ---
Assessment/Plan Assessment/Plan 1. Acute myocardial ischemia. 2. 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 3. Chronic obstructive pulmonary disease. 4. Moderate protein-calorie malnutrition. 5. Prerenal azotemia. 6. Metabolic encephalopathy. 7. Groin abscesses. 8. Hypertensive heart disease 9. 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 Antimicrobials. 2. Bronchodilators. 3. anticoagulants 4. Diuretic therapy. 6. Titration of antihypertensives. 7. Continue aspirin prophylaxis. Subjective ROS Limited/Unobtainable: Yes Allergies: Coded Allergies: No Known Allergies (Unverified , 02/28/17) Objective Last 24 Hour Vital Signs Date Time Temp Pulse Resp B/P (MAP) Pulse Ox O2 Delivery O2 Flow Rate FiO2 03/07/17 12:00 83 03/07/17 11:15 89 03/07/17 11:07 98.0 90 20 142/96 98 03/07/17 09:15 93 140/89 03/07/17 08:00 93 03/07/17 07:56 97.0 93 24 140/89 97 03/07/17 06:45 Nasal Cannula 3.0 32 03/07/17 06:45 92 Nasal Cannula 3.0 32 03/07/17 04:00 92 03/07/17 04:00 97.7 92 21 136/92 95 03/07/17 00:20 97.6 87 21 145/90 95 03/07/17 00:00 96 03/06/17 20:12 Nasal Cannula 3.0 30 03/06/17 20:12 93 Nasal Cannula 3.0 30 03/06/17 20:00 91 03/06/17 20:00 97.6 90 24 139/81 96 Nasal Cannula 3.0 03/06/17 16:00 86 03/06/17 16:00 97.5 86 18 140/95 93 Nasal Cannula 3.0 Intake and Output 03/06/17 03/07/17 19:00 07:00 Intake Total 1133.334 ml 480 ml Balance 1133.334 ml 480 ml Intake Oral 800 ml 480 ml IV Total 333.334 ml # Voids 4 5 General Appearance: no acute distress HEENT: atraumatic Respiratory/Chest: lungs clear, decreased breath sounds Cardiovascular: normal rate Neurologic/Psychiatric: other - Movement disorder Laboratory Tests 03/07/17 01:00: Vancomycin Level Trough 10.4 Current Medications Medications (Trade) Dose Ordered Sig/Vicky Route PRN Reason Start Time Stop Time Status Last Admin Dose Admin Aspirin (ASA) 81 mg DAILY ORAL 03/01/17 13:15 03/31/17 13:14 03/07/17 09:15 Cefepime HCl 2 gm/ Dextrose 55 ml @ 110 mls/hr EVERY 12 HOURS IVPB 02/28/17 23:00 03/07/17 22:59 03/07/17 09:14 Clotrimazole (Lotrimin) 1 applic EVERY 12 HOURS TOPIC 03/01/17 21:00 03/31/17 20:59 03/07/17 09:16 Divalproex Sodium (Depakote) 500 mg EVERY 12 HOURS ORAL 03/06/17 21:00 04/05/17 20:59 03/07/17 09:15 Enoxaparin Sodium (Lovenox) 80 mg Q12HR SUBQ 03/04/17 19:30 04/03/17 19:29 03/07/17 09:14 Furosemide (Lasix) 40 mg EVERY 12 HOURS IV 03/01/17 13:15 03/31/17 13:14 03/07/17 09:15 Lorazepam (Ativan 2mg/ml 1ml) 1 mg Q4H PRN IV For Anxiety 02/28/17 22:00 03/07/17 21:59 03/07/17 01:23 Metoprolol Succinate (Toprol XL) 25 mg DAILY ORAL 03/06/17 09:00 04/05/17 08:59 03/07/17 09:15 Metronidazole (Flagyl) 500 mg Q8HR ORAL 03/01/17 14:00 03/08/17 13:59 03/07/17 05:32 Olanzapine (ZyPREXA) 10 mg BEDTIME ORAL 03/06/17 21:00 04/05/17 20:59 03/06/17 21:12 Potassium Chloride (K-Dur) 20 meq TWICE A DAY ORAL 03/05/17 11:00 04/04/17 10:59 03/07/17 09:15 Vancomycin HCl (Vanco rx to dose) 1 ea DAILY PRN MISC Per rx protocol 02/28/17 23:00 03/30/17 22:59 Vancomycin/Sodium Chloride 250 ml @ 166.667 mls/hr Q12H IVPB 03/04/17 02:00 03/09/17 01:59 03/07/17 01:52 YARY JAUREGUI Mar 07, 2017 14:02
--- NOTE | 2017-03-07 15:08 | Infectious Diseases Prog Note ---
Assessment/Plan Problems: (1) Abscess of groin, left Assessment & Plan: improved on vancomycin, cefepime and metronidazol empirically, with antifungal topical , culture of the wound grew serratia licquifance, klebsiella pneumonia , and streptococcus group G , will switch his antibiotics to ceftriaxon and flagyl , continue local wound care , as per wound care service (2) Abscess of groin, right Assessment & Plan: management the same as above (3) HCAP (healthcare-associated pneumonia) Assessment & Plan: improving on vancomycin and cefepime empirically , will switch to ceftriaxon and flagyl , monitor CXR (4) CHF (congestive heart failure) Assessment & Plan: continue diuresis , monitor out put and daily weight (5) Hypoglycemia Assessment & Plan: resolved, monitor glucose level closely (6) Agitated Assessment & Plan: resume psych meds , consult psychiatrist Subjective Constitutional: Reports: no symptoms HEENT: Reports: no symptoms Respiratory: Reports: no symptoms Breasts: Reports: no symptoms Cardiovascular: Reports: no symptoms Gastrointestinal/Abdominal: Reports: no symptoms Genitourinary: Reports: no symptoms Neurologic: Reports: no symptoms Psychiatric: Reports: no symptoms Skin: Reports: no symptoms Endocrine: Reports: no symptoms Hematologic: Reports: no symptoms Allergies: Coded Allergies: No Known Allergies (Unverified , 02/28/17) Subjective he was up in bed more comfortable, with jerking movements of the head and the shoulders, no fever or chills, no cough or SOB Objective Vital Signs Last 24 Hour Vital Signs Date Time Temp Pulse Resp B/P (MAP) Pulse Ox O2 Delivery O2 Flow Rate FiO2 03/07/17 12:00 83 03/07/17 11:15 89 03/07/17 11:07 98.0 90 20 142/96 98 03/07/17 09:15 93 140/89 03/07/17 08:00 93 03/07/17 07:56 97.0 93 24 140/89 97 03/07/17 06:45 Nasal Cannula 3.0 32 03/07/17 06:45 92 Nasal Cannula 3.0 32 03/07/17 04:00 92 03/07/17 04:00 97.7 92 21 136/92 95 03/07/17 00:20 97.6 87 21 145/90 95 03/07/17 00:00 96 03/06/17 20:12 Nasal Cannula 3.0 30 03/06/17 20:12 93 Nasal Cannula 3.0 30 03/06/17 20:00 91 03/06/17 20:00 97.6 90 24 139/81 96 Nasal Cannula 3.0 03/06/17 16:00 86 03/06/17 16:00 97.5 86 18 140/95 93 Nasal Cannula 3.0 Height (Feet): 5 Height (Inches): 7.00 Weight (Pounds): 171 General Appearance: WD/WN, no acute distress HEENT: normocephalic, atraumatic, anicteric, mucous membranes moist, PERRL Respiratory/Chest: chest wall non-tender, lungs clear, normal breath sounds, no respiratory distress, no accessory muscle use, respiratory distress Cardiovascular: normal peripheral pulses, normal rate, regular rhythm, regularly irregular, no gallop/murmur, no JVD Abdomen: normal bowel sounds, soft, non tender, no organomegaly, non distended , no mass, no scars Extremities: no cyanosis, no clubbing Skin: no rash, no lesions, ulcers Neurologic/Psychiatric: alert, responsive Lymphatic: no neck adenopathy, no groin adenopathy Musculoskeletal: normal muscle bulk, no effusion Laboratory Tests Test 03/07/17 01:00 Vancomycin Level Trough 10.4 ug/mL (5.0-12.0) Current Medications Medications (Trade) Dose Ordered Sig/Vicky Route PRN Reason Start Time Stop Time Status Last Admin Dose Admin Aspirin (ASA) 81 mg DAILY ORAL 03/01/17 13:15 03/31/17 13:14 03/07/17 09:15 Cefepime HCl 2 gm/ Dextrose 55 ml @ 110 mls/hr EVERY 12 HOURS IVPB 02/28/17 23:00 03/07/17 22:59 03/07/17 09:14 Clotrimazole (Lotrimin) 1 applic EVERY 12 HOURS TOPIC 03/01/17 21:00 03/31/17 20:59 03/07/17 09:16 Divalproex Sodium (Depakote) 500 mg EVERY 12 HOURS ORAL 03/06/17 21:00 04/05/17 20:59 03/07/17 09:15 Enoxaparin Sodium (Lovenox) 80 mg Q12HR SUBQ 03/04/17 19:30 04/03/17 19:29 03/07/17 09:14 Furosemide (Lasix) 40 mg EVERY 12 HOURS IV 03/01/17 13:15 03/31/17 13:14 03/07/17 09:15 Lorazepam (Ativan 2mg/ml 1ml) 1 mg Q4H PRN IV For Anxiety 02/28/17 22:00 03/07/17 21:59 03/07/17 01:23 Metoprolol Succinate (Toprol XL) 25 mg DAILY ORAL 03/06/17 09:00 04/05/17 08:59 03/07/17 09:15 Metronidazole (Flagyl) 500 mg Q8HR ORAL 03/01/17 14:00 03/08/17 13:59 03/07/17 14:01 Olanzapine (ZyPREXA) 10 mg BEDTIME ORAL 03/06/17 21:00 04/05/17 20:59 03/06/17 21:12 Potassium Chloride (K-Dur) 20 meq TWICE A DAY ORAL 03/05/17 11:00 04/04/17 10:59 03/07/17 09:15 Vancomycin HCl (Vanco rx to dose) 1 ea DAILY PRN MISC Per rx protocol 02/28/17 23:00 03/30/17 22:59 Vancomycin/Sodium Chloride 250 ml @ 166.667 mls/hr Q12H IVPB 03/04/17 02:00 03/09/17 01:59 03/07/17 14:01 Mike Nguyen M.D. Mar 07, 2017 15:08
[2017-03-07] MEDS ORDERED: cefTRIAXone 2 GM in D5W 55 ML IVPB SCH (16:00)
--- NOTE | 2017-03-07 18:03 | Cardiac Electrophysiology PN ---
Assessment/Plan Assessment/Plan 1. Acute on chronic diastolic congestive heart failure.On Lasix 40 iv bid and Toprol XL 25. 2. Myocardial ischemia. Couldn't get the stress test done due to noncompliance and lack of consent. No chest pain. Refusing to wear the tele monitoring. 3. Hypokalemia. Replaced 4. Hypomagnesemia. 5. Severe protein-calorie malnutrition. 6. AMS DW RN and sitter Subjective Subjective Confused.In SR. Stress test not done yet for lack of consent.Sitter and RN at bedside. Objective Last 24 Hour Vital Signs Date Time Temp Pulse Resp B/P (MAP) Pulse Ox O2 Delivery O2 Flow Rate FiO2 03/07/17 16:00 98.0 91 20 133/91 99 03/07/17 15:38 84 03/07/17 14:56 97.0 87 20 133/91 99 03/07/17 12:00 83 03/07/17 11:15 89 03/07/17 11:07 98.0 90 20 142/96 98 03/07/17 09:15 93 140/89 03/07/17 08:00 93 03/07/17 07:56 97.0 93 24 140/89 97 03/07/17 06:45 Nasal Cannula 3.0 32 03/07/17 06:45 92 Nasal Cannula 3.0 32 03/07/17 04:00 92 03/07/17 04:00 97.7 92 21 136/92 95 03/07/17 00:20 97.6 87 21 145/90 95 03/07/17 00:00 96 03/06/17 20:12 Nasal Cannula 3.0 30 03/06/17 20:12 93 Nasal Cannula 3.0 30 03/06/17 20:00 91 03/06/17 20:00 97.6 90 24 139/81 96 Nasal Cannula 3.0 Intake and Output 03/06/17 03/07/17 19:00 07:00 Intake Total 1133.334 ml 480 ml Balance 1133.334 ml 480 ml Intake Oral 800 ml 480 ml IV Total 333.334 ml # Voids 4 5 Laboratory Tests Test 03/07/17 01:00 Vancomycin Level Trough 10.4 ug/mL (5.0-12.0) Objective HEENT No JVD LUNGS: Coarse breath sounds. HEART: Regular rhythm and rate. Normal S1 and S2. ABDOMEN: Soft. EXTREMITIES: 1 plus edema. Bilateral groin ulceration sites ZANA CHINCHILLA Mar 07, 2017 18:03
--- NOTE | 2017-03-07 20:30 | Nephrology Progress Note ---
Assessment/Plan Problem List: (1) Azotemia (2) CHF (congestive heart failure) (3) Elevated troponin (4) Abscess of groin, left (5) Abscess of groin, right (6) HCAP (healthcare-associated pneumonia) (7) Altered mental status Plan Continue current treatment plan Continue sitter Monitor lites, replace prn Renally dose med, avoid nephrotoxins Monitor intake and output Continue abx per ID Monitor neuro status Continue wound care per recs Subjective ROS Limited/Unobtainable: Yes Subjective In bed, in no distress, speech is garbled, sitter at bedside Objective Objective Last 24 Hour Vital Signs Date Time Temp Pulse Resp B/P (MAP) Pulse Ox O2 Delivery O2 Flow Rate FiO2 03/07/17 16:00 98.0 91 20 133/91 99 03/07/17 15:38 84 03/07/17 14:56 97.0 87 20 133/91 99 03/07/17 12:00 83 03/07/17 11:15 89 03/07/17 11:07 98.0 90 20 142/96 98 03/07/17 09:15 93 140/89 03/07/17 08:00 93 03/07/17 07:56 97.0 93 24 140/89 97 03/07/17 06:45 Nasal Cannula 3.0 32 03/07/17 06:45 92 Nasal Cannula 3.0 32 03/07/17 04:00 92 03/07/17 04:00 97.7 92 21 136/92 95 03/07/17 00:20 97.6 87 21 145/90 95 03/07/17 00:00 96 Intake and Output 03/06/17 03/07/17 19:00 07:00 Intake Total 1133.334 ml 480 ml Balance 1133.334 ml 480 ml Intake Oral 800 ml 480 ml IV Total 333.334 ml # Voids 4 5 Laboratory Tests 03/07/17 01:00: Vancomycin Level Trough 10.4 Height (Feet): 5 Height (Inches): 7.00 Weight (Pounds): 171 General Appearance: no apparent distress, confused EENT: normal ENT inspection Neck: non-tender Cardiovascular: regular rhythm, no JVD Respiratory/Chest: normal breath sounds, no respiratory distress Abdomen: soft Extremities: non-tender Neurologic: disoriented EgwDelisa paez N.P. Mar 07, 2017 20:30
--- NOTE | 2017-03-07 22:30 | Progress Note ---
DATE: 03/07/2017 SUBJECTIVE: This is an elderly male, who is currently in bed and confused. OBJECTIVE: VITAL SIGNS: Blood pressure is 130/70, pulse 74, and respirations 18. No fever. SKIN: Good skin turgor. HEENT: NAD. CHEST: Bilaterally clear. CARDIOVASCULAR: Regular rhythm. No gallop. No murmur. ABDOMEN: Soft. EXTREMITIES: CCE. NEUROLOGIC: Confused and generalized weakness. ASSESSMENT: 1. Deep vein thrombosis. 2. Chronic respiratory failure. 3. Chronic obstructive pulmonary disease. 4. Encephalopathy. 5. Generalized weakness. PLAN: 1. We will continue current treatment. 2. Continue Lovenox. 3. Add Coumadin. 4. Continue bronchodilator treatments. 5. Discussed with charge nurse. Mike Oneil M.D. DR: CHERELLE JOB#: [id number] CC:
--- NOTE | 2017-03-07 23:03 | General Progress Note ---
Subjective Allergies: Coded Allergies: No Known Allergies (Unverified , 02/28/17) Objective Last 24 Hour Vital Signs Date Time Temp Pulse Resp B/P (MAP) Pulse Ox O2 Delivery O2 Flow Rate FiO2 03/07/17 19:30 93 Nasal Cannula 3.0 32 03/07/17 19:30 Nasal Cannula 3.0 32 03/07/17 16:00 98.0 91 20 133/91 99 03/07/17 15:38 84 03/07/17 14:56 97.0 87 20 133/91 99 03/07/17 12:00 83 03/07/17 11:15 89 03/07/17 11:07 98.0 90 20 142/96 98 03/07/17 09:15 93 140/89 03/07/17 08:00 93 03/07/17 07:56 97.0 93 24 140/89 97 03/07/17 06:45 Nasal Cannula 3.0 32 03/07/17 06:45 92 Nasal Cannula 3.0 32 03/07/17 04:00 92 03/07/17 04:00 97.7 92 21 136/92 95 03/07/17 00:20 97.6 87 21 145/90 95 03/07/17 00:00 96 Intake and Output 03/06/17 03/07/17 19:00 07:00 Intake Total 1133.334 ml 480 ml Balance 1133.334 ml 480 ml Intake Oral 800 ml 480 ml IV Total 333.334 ml # Voids 4 5 Laboratory Tests 03/07/17 01:00: Vancomycin Level Trough 10.4 Height (Feet): 5 Height (Inches): 7.00 Weight (Pounds): 171 Saul Munguia M.D. Mar 07, 2017 23:02
[2017-03-08] VITALS: BP 141/85
--- NOTE | 2017-03-08 01:00 | Progress Note ---
DATE: 03/07/2017 CARDIOLOGY PROGRESS NOTE SUBJECTIVE: Stress test has not been done because of lack of informed consent. Leg swelling has continued to slowly improve. OBJECTIVE: VITAL SIGNS: Blood pressure 133/91, pulse 91, respiratory rate 20, and afebrile. NECK: Supple. LUNGS: Clear. CARDIAC: Regular rhythm and rate. Normal S1 and S2 with a fourth heart sound. ABDOMEN: Soft. EXTREMITIES: Groin ulceration with 1+ edema. LABORATORY DATA: Pending. IMPRESSION: 1. Acute on chronic diastolic congestive heart failure. 2. Acute myocardial ischemia. 3. Hypomagnesemia. 4. Hypokalemia. 5. Dementia. PLAN: 1. Antimicrobials. 2. Diuresis with intravenous loop diuretic. 3. Replace potassium as needed. 4. Recheck magnesium levels. 5. Continue anti-platelet therapy with aspirin. 6. Titrate beta-hussein dose. Rehan Grove M.D. DR: ROCAEL JOB#: [id number] CC:
[2017-03-08 04:00] VITALS: BP 137/89
[2017-03-08] MEDS: metroNIDAZOLE 500mg tab ORAL SCH ×2 (05:40→14:17)
[2017-03-08] MEDS ORDERED: metroNIDAZOLE 500mg tab ORAL SCH (06:45)
[2017-03-08 08:00] VITALS: BP 152/86
[2017-03-08] MEDS ORDERED: Metoprolol Succinate XL 25mg tab ORAL SCH (09:00)
[2017-03-08] MEDS: Aspirin Baby 81mg ORAL SCH (09:06)
[2017-03-08] MEDS: Metoprolol Succinate XL 50mg tab ORAL SCH (09:06)
[2017-03-08] MEDS: Enoxaparin 80mg Inj SUBQ SCH (09:07)
[2017-03-08] MEDS: Depakote 500mg tab ORAL SCH (09:08)
--- NOTE | 2017-03-08 09:30 | Progress Note ---
DATE: 03/08/2017 CARDIOLOGY PROGRESS NOTE SUBJECTIVE: The patient remains confused, unable to sign informed consent. Monitored rhythm. Sinus with atrial and ventricular ectopy. OBJECTIVE: LUNGS: Bilateral breath sounds. Diminished at bases. CARDIAC: Regular rhythm and rate. Normal S1, S2 with a 1/6 systolic apical murmur. ABDOMEN: Soft and nontender. EXTREMITIES: With 1+ dependent edema. Healing right groin abscesses bilaterally. LABORATORY DATA: Labs pending. IMPRESSION: 1. Corrected hypomagnesemia and hypokalemia. 2. Myocardial ischemia. 3. Chronic ischemic heart disease. 4. Acute on chronic diastolic congestive heart failure. 5. Slightly bilateral cellulitis of the groin area. PLAN: 1. Beta-hussein was advanced. 2. Continue diuresis. 3. Skin care. 4. Antimicrobials. 5. Protein supplements. 6. Monitor electrolytes and replace accordingly. 7. Stress test can be done as an outpatient. Rehan Grove M.D. DR: SHARONDA JOB#: [id number] CC:
[2017-03-08 12:00] VITALS: BP 136/84
--- NOTE | 2017-03-08 12:01 | Cardiac Electrophysiology PN ---
Assessment/Plan Assessment/Plan 1. Acute on chronic diastolic congestive heart failure.Change Lasix to 40 po daily and continue Toprol XL 25. 2. Myocardial ischemia. Couldn't get the stress test done due to noncompliance and lack of consent. No chest pain. In SR with PACs and PVCs. 3. Hypokalemia. Replaced 4. Hypomagnesemia. 5. Severe protein-calorie malnutrition. 6. AMS DW RN and sitter Subjective Subjective Confused.In SR.Transferred to tele bed.Sitter and RN at bedside.Agreed to keep on the monitor Objective Last 24 Hour Vital Signs Date Time Temp Pulse Resp B/P (MAP) Pulse Ox O2 Delivery O2 Flow Rate FiO2 03/08/17 09:06 87 155/84 03/08/17 08:00 97.7 85 18 152/86 94 03/08/17 07:55 Nasal Cannula 3.0 32 03/08/17 07:55 94 Nasal Cannula 3.0 32 03/08/17 04:00 87 03/08/17 04:00 98.4 83 20 137/89 98 03/08/17 00:00 97.6 89 20 141/85 98 03/08/17 00:00 88 03/07/17 20:00 98.6 99 20 134/88 99 03/07/17 20:00 97 03/07/17 19:30 93 Nasal Cannula 3.0 32 03/07/17 19:30 Nasal Cannula 3.0 32 03/07/17 16:00 98.0 91 20 133/91 99 03/07/17 15:38 84 03/07/17 14:56 97.0 87 20 133/91 99 03/07/17 12:00 83 Intake and Output 03/07/17 03/08/17 19:00 07:00 Intake Total 895 ml 450 ml Balance 895 ml 450 ml Intake Oral 840 ml 450 ml IV Total 55 ml # Voids 6 3 # Bowel Movements 2 1 Objective HEENT: No JVD LUNGS: Coarse Rhonchi HEART: Regular rhythm and rate. Normal S1 and S2. ABDOMEN: Soft. EXTREMITIES: 1 plus edema. Bilateral groin ulceration sites ZANA CHINCHILLA Mar 08, 2017 12:01
--- NOTE | 2017-03-08 13:08 | Nephrology Progress Note ---
Assessment/Plan Problem List: (1) Azotemia (2) CHF (congestive heart failure) (3) Elevated troponin (4) Abscess of groin, left (5) Abscess of groin, right (6) HCAP (healthcare-associated pneumonia) (7) Altered mental status Plan Continue current treatment plan Monitor lytes, replace prn Renally dose med, avoid nephrotoxins Monitor intake and output Abx per ID DVT prophylaxis Monitor neuro status Continue wound care per recs AM labs Subjective Constitutional: Denies: no symptoms, chills, diaphoresis, fever, malaise, weakness, other HEENT: Denies: no symptoms, eye pain, blurred vision, tearing, double vision, ear pain, ear discharge, nose pain, nose congestion, throat pain, throat swelling, mouth pain, mouth swelling, other Genitourinary: Denies: no symptoms, burning, discharge, frequency, flank pain, hematuria, incontinence, pain, urgency, other Neurologic/Psychiatric: Denies: no symptoms, anxiety, depressed, emotional problems, headache, numbness, paresthesia, pre-existing deficit, seizure, tingling, tremors, weakness, other Subjective In bed, in no distress, denies discomfort, states that he'll like to be shaved, speech is garbled, sitter at bedside Objective Objective Last 24 Hour Vital Signs Date Time Temp Pulse Resp B/P (MAP) Pulse Ox O2 Delivery O2 Flow Rate FiO2 03/08/17 12:00 98.1 82 20 136/84 99 03/08/17 09:06 87 155/84 03/08/17 08:00 97.7 85 18 152/86 94 03/08/17 07:55 Nasal Cannula 3.0 32 03/08/17 07:55 94 Nasal Cannula 3.0 32 03/08/17 04:00 87 03/08/17 04:00 98.4 83 20 137/89 98 03/08/17 00:00 97.6 89 20 141/85 98 03/08/17 00:00 88 03/07/17 20:00 98.6 99 20 134/88 99 03/07/17 20:00 97 03/07/17 19:30 93 Nasal Cannula 3.0 32 03/07/17 19:30 Nasal Cannula 3.0 32 03/07/17 16:00 98.0 91 20 133/91 99 03/07/17 15:38 84 03/07/17 14:56 97.0 87 20 133/91 99 Intake and Output 03/07/17 03/08/17 19:00 07:00 Intake Total 895 ml 450 ml Balance 895 ml 450 ml Intake Oral 840 ml 450 ml IV Total 55 ml # Voids 6 3 # Bowel Movements 2 1 Height (Feet): 5 Height (Inches): 7.00 Weight (Pounds): 171 General Appearance: no apparent distress EENT: normal ENT inspection Neck: normal alignment Cardiovascular: regular rhythm, no JVD Respiratory/Chest: no respiratory distress Abdomen: soft Extremities: non-tender, normal inspection Neurologic: responsive, normal mood/affect Delisa Miranda N.P. Mar 08, 2017 13:08
--- NOTE | 2017-03-08 13:15 | Pulmonology Progress Note ---
Assessment/Plan Assessment/Plan 1. Acute myocardial ischemia. 2. 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 3. Chronic obstructive pulmonary disease. 4. Moderate protein-calorie malnutrition. 5. Prerenal azotemia. 6. Metabolic encephalopathy. 7. Groin abscesses. 8. Hypertensive heart disease 9. 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 Antimicrobials. 2. Bronchodilators. 3. anticoagulants - change to PO soon 4. Diuretic therapy. 6. Titration of antihypertensives. 7. Continue aspirin prophylaxis. Subjective ROS Limited/Unobtainable: Yes Allergies: Coded Allergies: No Known Allergies (Unverified , 02/28/17) Objective Last 24 Hour Vital Signs Date Time Temp Pulse Resp B/P (MAP) Pulse Ox O2 Delivery O2 Flow Rate FiO2 03/08/17 12:00 98.1 82 20 136/84 99 03/08/17 09:06 87 155/84 03/08/17 08:00 97.7 85 18 152/86 94 03/08/17 07:55 Nasal Cannula 3.0 32 03/08/17 07:55 94 Nasal Cannula 3.0 32 03/08/17 04:00 87 03/08/17 04:00 98.4 83 20 137/89 98 03/08/17 00:00 97.6 89 20 141/85 98 03/08/17 00:00 88 03/07/17 20:00 98.6 99 20 134/88 99 03/07/17 20:00 97 03/07/17 19:30 93 Nasal Cannula 3.0 32 03/07/17 19:30 Nasal Cannula 3.0 32 03/07/17 16:00 98.0 91 20 133/91 99 03/07/17 15:38 84 03/07/17 14:56 97.0 87 20 133/91 99 Intake and Output 03/07/17 03/08/17 19:00 07:00 Intake Total 895 ml 450 ml Balance 895 ml 450 ml Intake Oral 840 ml 450 ml IV Total 55 ml # Voids 6 3 # Bowel Movements 2 1 General Appearance: no acute distress HEENT: atraumatic Respiratory/Chest: lungs clear, decreased breath sounds Cardiovascular: normal rate Current Medications Medications (Trade) Dose Ordered Sig/Vicky Route PRN Reason Start Time Stop Time Status Last Admin Dose Admin Aspirin (ASA) 81 mg DAILY ORAL 03/08/17 09:00 03/31/17 13:14 03/08/17 09:06 Ceftriaxone Sodium 2 gm/ Dextrose 55 ml @ 110 mls/hr Q24H IVPB 03/08/17 16:00 03/14/17 15:59 Clotrimazole (Lotrimin) 1 applic EVERY 12 HOURS TOPIC 03/08/17 09:00 03/31/17 20:59 03/08/17 09:07 Divalproex Sodium (Depakote) 500 mg EVERY 12 HOURS ORAL 03/08/17 09:00 04/05/17 20:59 03/08/17 09:08 Enoxaparin Sodium (Lovenox) 80 mg Q12HR SUBQ 03/08/17 09:00 04/03/17 19:29 03/08/17 09:07 Furosemide (Lasix) 40 mg DAILY ORAL 03/09/17 09:00 04/08/17 08:59 Metoprolol Succinate (Toprol XL) 50 mg DAILY ORAL 03/08/17 09:00 04/07/17 08:59 03/08/17 09:06 Metronidazole (Flagyl) 500 mg Q8HR ORAL 03/08/17 14:00 03/15/17 13:59 Olanzapine (ZyPREXA) 10 mg BEDTIME ORAL 03/08/17 21:00 04/05/17 20:59 Potassium Chloride (K-Dur) 20 meq TWICE A DAY ORAL 03/08/17 09:00 04/04/17 10:59 03/08/17 09:08 YARY JAUREGUI Mar 08, 2017 13:15
--- NOTE | 2017-03-08 15:00 | Infectious Diseases Prog Note ---
Assessment/Plan Problems: (1) Abscess of groin, left Assessment & Plan: improved on vancomycin, cefepime and metronidazol empirically, with antifungal topical , culture of the wound grew serratia licquifance, klebsiella pneumonia , and streptococcus group G , now on ceftriaxon and flagyl , continue local wound care , as per wound care service (2) Abscess of groin, right Assessment & Plan: management the same as above (3) HCAP (healthcare-associated pneumonia) Assessment & Plan: improving on vancomycin and cefepime empirically , now on ceftriaxon and flagyl , monitor CXR (4) CHF (congestive heart failure) Assessment & Plan: with acute exacerbation , continue diuresis , monitor out put and daily weight (5) Hypoglycemia Assessment & Plan: resolved, monitor glucose level closely (6) Agitated Assessment & Plan: resume psych meds , consult psychiatrist Subjective ROS Limited/Unobtainable: Yes Allergies: Coded Allergies: No Known Allergies (Unverified , 02/28/17) Subjective he was lying in bed, on oxygen via nasal canula , comfortable, with jerking movements of the head and the shoulders, no fever or chills, he gets SOB when he takes oxygen off Objective Vital Signs Last 24 Hour Vital Signs Date Time Temp Pulse Resp B/P (MAP) Pulse Ox O2 Delivery O2 Flow Rate FiO2 03/08/17 12:00 89 03/08/17 12:00 98.1 82 20 136/84 99 03/08/17 09:06 87 155/84 03/08/17 08:00 81 03/08/17 08:00 97.7 85 18 152/86 94 03/08/17 07:55 Nasal Cannula 3.0 32 03/08/17 07:55 94 Nasal Cannula 3.0 32 03/08/17 04:00 87 03/08/17 04:00 98.4 83 20 137/89 98 03/08/17 00:00 97.6 89 20 141/85 98 03/08/17 00:00 88 03/07/17 20:00 98.6 99 20 134/88 99 03/07/17 20:00 97 03/07/17 19:30 93 Nasal Cannula 3.0 32 03/07/17 19:30 Nasal Cannula 3.0 32 03/07/17 16:00 98.0 91 20 133/91 99 03/07/17 15:38 84 Height (Feet): 5 Height (Inches): 7.00 Weight (Pounds): 171 General Appearance: WD/WN, no acute distress HEENT: normocephalic, atraumatic, anicteric, mucous membranes moist, PERRL Respiratory/Chest: chest wall non-tender, no respiratory distress, no accessory muscle use, decreased breath sounds, crackles/rales Cardiovascular: normal peripheral pulses, normal rate, regular rhythm, no gallop/murmur, no JVD Abdomen: normal bowel sounds, soft, non tender, no organomegaly, non distended , no mass Extremities: no cyanosis, no clubbing Skin: no rash, no lesions, no ulcers Neurologic/Psychiatric: alert, responsive Current Medications Medications (Trade) Dose Ordered Sig/Vicky Route PRN Reason Start Time Stop Time Status Last Admin Dose Admin Aspirin (ASA) 81 mg DAILY ORAL 03/08/17 09:00 03/31/17 13:14 03/08/17 09:06 Ceftriaxone Sodium 2 gm/ Dextrose 55 ml @ 110 mls/hr Q24H IVPB 03/08/17 16:00 03/14/17 15:59 Clotrimazole (Lotrimin) 1 applic EVERY 12 HOURS TOPIC 03/08/17 09:00 03/31/17 20:59 03/08/17 09:07 Divalproex Sodium (Depakote) 500 mg EVERY 12 HOURS ORAL 03/08/17 09:00 04/05/17 20:59 03/08/17 09:08 Enoxaparin Sodium (Lovenox) 80 mg Q12HR SUBQ 03/08/17 09:00 04/03/17 19:29 03/08/17 09:07 Furosemide (Lasix) 40 mg DAILY ORAL 03/09/17 09:00 04/08/17 08:59 Metoprolol Succinate (Toprol XL) 50 mg DAILY ORAL 03/08/17 09:00 04/07/17 08:59 03/08/17 09:06 Metronidazole (Flagyl) 500 mg Q8HR ORAL 03/08/17 14:00 03/15/17 13:59 03/08/17 14:17 Olanzapine (ZyPREXA) 10 mg BEDTIME ORAL 03/08/17 21:00 1/27/18 20:59 Potassium Chloride (K-Dur) 20 meq TWICE A DAY ORAL 03/08/17 09:00 04/04/17 10:59 03/08/17 09:08 Mike Nguyen M.D. Mar 08, 2017 15:00
[2017-03-08 16:00] VITALS: BP 146/94
[2017-03-08] MEDS: cefTRIAXone 2 GM in D5W 55 ML IVPB SCH (18:08)
[2017-03-08 20:22] VITALS: BP 143/74
[2017-03-09 00:04] VITALS: BP 124/90
[2017-03-09] MEDS: Enoxaparin 80mg Inj SUBQ SCH ×3 (01:34→21:20)
[2017-03-09] MEDS: Depakote 500mg tab ORAL SCH ×3 (01:34→21:18)
[2017-03-09 04:09] VITALS: BP 116/71
[2017-03-09] MEDS: metroNIDAZOLE 500mg tab ORAL SCH ×4 (06:52→21:17)
[2017-03-09 07:34] LABS: BASOPHILS % (AUTO) 0.7 % (0.0-2.0); EOSINOPHILS % (AUTO) 0.1 % (0.0-3.0); HEMATOCRIT 37.6 % (42.0-52.0); HEMOGLOBIN 11.6 G/DL (14.2-18.0); LYMPHOCYTES % (AUTO) 18.4 % (20.0-45.0); MEAN CORPUSCULAR VOLUME 99 FL (80-99); MONOCYTES % (AUTO) 8.1 % (1.0-10.0); NEUTROPHILS % (AUTO) 72.8 % (45.0-75.0); PLATELET COUNT 269 K/UL (150-450); RED BLOOD COUNT 3.79 M/UL (4.70-6.10); RED CELL DISTRIBUTION WIDTH 14.5 % (11.6-14.8); WHITE BLOOD COUNT 5.5 K/UL (4.8-10.8)
[2017-03-09 07:51] LABS: ANION GAP -2 mmol/L (5-15); BLOOD UREA NITROGEN 28 mg/dL (7-18); CALCIUM 6.9 MG/DL (8.5-10.1); CARBON DIOXIDE 40 MMOL/L (21-32); CHLORIDE 107 MMOL/L (98-107); CREATININE 0.7 MG/DL (0.55-1.30); POTASSIUM 3.8 MMOL/L (3.5-5.1); SODIUM 145 MMOL/L (136-145)
[2017-03-09 08:00] VITALS: BP 122/68
--- NOTE | 2017-03-09 08:43 | Cardiac Electrophysiology PN ---
Assessment/Plan Assessment/Plan 1. Acute on chronic diastolic congestive heart failure. Now on Lasix 40 po daily and Toprol XL 50. 2. Troponin leak.Levels flat and has no chest pain. Couldn't get the stress test done due to noncompliance and lack of consent. On Aspirin and Toprol and add Lipitor 40 po qhs. In SR with PACs and PVCs. 3. HTN On Toprol 50 mg po daily and Lasix 4. Hypomagnesemia. 5. Severe protein-calorie malnutrition. 6. AMS DW RN and sitter Subjective Subjective Confused.Remained in SR.Sitter and RN at bedside.On the monitor. BP slightly high Objective Last 24 Hour Vital Signs Date Time Temp Pulse Resp B/P (MAP) Pulse Ox O2 Delivery O2 Flow Rate FiO2 03/09/17 08:31 92 Nasal Cannula 3.0 32 03/09/17 08:31 Nasal Cannula 3.0 32 03/09/17 04:09 97.0 60 24 116/71 90 Nasal Cannula 2.0 03/09/17 04:00 87 03/09/17 00:04 97.3 85 19 124/90 99 03/09/17 00:00 93 03/08/17 20:22 98.1 89 18 143/74 94 03/08/17 19:30 92 Nasal Cannula 3.0 32 03/08/17 19:30 Nasal Cannula 3.0 32 03/08/17 16:00 85 03/08/17 16:00 98.5 85 19 146/94 93 03/08/17 12:00 89 03/08/17 12:00 98.1 82 20 136/84 99 03/08/17 09:06 87 155/84 Intake and Output 03/08/17 03/09/17 19:00 07:00 Intake Total 1100 ml Balance 1100 ml Intake Oral 1100 ml # Voids 7 # Bowel Movements 3 Laboratory Tests Test 03/09/17 04:40 White Blood Count 5.5 K/UL (4.8-10.8) Red Blood Count 3.79 M/UL (4.70-6.10) L Hemoglobin 11.6 G/DL (14.2-18.0) L Hematocrit 37.6 % (42.0-52.0) L Mean Corpuscular Volume 99 FL (80-99) Mean Corpuscular Hemoglobin 30.6 PG (27.0-31.0) Mean Corpuscular Hemoglobin Concent 30.8 G/DL (32.0-36.0) L Red Cell Distribution Width 14.5 % (11.6-14.8) Platelet Count 269 K/UL (150-450) Mean Platelet Volume 7.7 FL (6.5-10.1) Neutrophils (%) (Auto) 72.8 % (45.0-75.0) Lymphocytes (%) (Auto) 18.4 % (20.0-45.0) L Monocytes (%) (Auto) 8.1 % (1.0-10.0) Eosinophils (%) (Auto) 0.1 % (0.0-3.0) Basophils (%) (Auto) 0.7 % (0.0-2.0) Sodium Level 145 MMOL/L (136-145) Potassium Level 3.8 MMOL/L (3.5-5.1) Chloride Level 107 MMOL/L (98-107) Carbon Dioxide Level 40 MMOL/L (21-32) H Anion Gap -2 mmol/L (5-15) L Blood Urea Nitrogen 28 mg/dL (7-18) H Creatinine 0.7 MG/DL (0.55-1.30) Estimat Glomerular Filtration Rate mL/min (>60) Glucose Level 103 MG/DL (74-106) Calcium Level 6.9 MG/DL (8.5-10.1) L Objective HEENT: No JVD LUNGS: Coarse Rhonchi HEART: Regular rhythm and rate. Normal S1 and S2. ABDOMEN: Soft. EXTREMITIES: 1 plus edema. ZANA CHINCHILLA Mar 09, 2017 08:43
[2017-03-09] MEDS: Metoprolol Succinate XL 50mg tab ORAL SCH (09:02)
[2017-03-09] MEDS: Furosemide 40mg tab ORAL SCH (09:03)
[2017-03-09] MEDS: Aspirin Baby 81mg ORAL SCH (09:05)
[2017-03-09 12:00] VITALS: BP 122/78
[2017-03-09] MEDS: cefTRIAXone 2 GM in D5W 55 ML IVPB SCH (15:49)
[2017-03-09 16:00] VITALS: BP 114/77
[2017-03-09 20:00] VITALS: BP 122/76
--- NOTE | 2017-03-09 20:37 | Nephrology Progress Note ---
Assessment/Plan Problem List: (1) CHF (congestive heart failure) (2) Hypoglycemia (3) Abscess of groin, left (4) Abscess of groin, right (5) HCAP (healthcare-associated pneumonia) (6) Azotemia (7) Elevated troponin (8) Altered mental status Plan Continue current treatment plan Monitor lytes, replace prn Renally dose med, avoid nephrotoxins Monitor intake and output Abx per ID DVT prophylaxis Monitor neuro status Continue wound care per recs Continue sitter AM labs Subjective Constitutional: Denies: no symptoms, chills, diaphoresis, fever, malaise, weakness, other HEENT: Denies: no symptoms, eye pain, blurred vision, tearing, double vision, ear pain, ear discharge, nose pain, nose congestion, throat pain, throat swelling, mouth pain, mouth swelling, other Genitourinary: Denies: no symptoms, burning, discharge, frequency, flank pain, hematuria, incontinence, pain, urgency, other Neurologic/Psychiatric: Denies: no symptoms, anxiety, depressed, emotional problems, headache, numbness, paresthesia, pre-existing deficit, seizure, tingling, tremors, weakness, other Subjective In bed, in no apparent distress. Objective Objective Last 24 Hour Vital Signs Date Time Temp Pulse Resp B/P (MAP) Pulse Ox O2 Delivery O2 Flow Rate FiO2 03/09/17 20:00 96.8 84 20 122/76 100 Nasal Cannula 03/09/17 16:00 97.8 86 20 114/77 93 03/09/17 16:00 89 03/09/17 12:00 97.8 75 20 122/78 93 03/09/17 09:02 60 116/71 03/09/17 08:31 92 Nasal Cannula 3.0 32 03/09/17 08:31 Nasal Cannula 3.0 32 03/09/17 08:00 78 03/09/17 08:00 97.4 68 22 122/68 92 03/09/17 04:09 97.0 60 24 116/71 90 Nasal Cannula 2.0 03/09/17 04:00 87 03/09/17 00:04 97.3 85 19 124/90 99 03/09/17 00:00 93 Intake and Output 03/08/17 03/09/17 19:00 07:00 Intake Total 1100 ml Balance 1100 ml Intake Oral 1100 ml # Voids 7 # Bowel Movements 3 Laboratory Tests 03/09/17 04:40: White Blood Count 5.5, Red Blood Count 3.79L, Hemoglobin 11.6L, Hematocrit 37.6L , Mean Corpuscular Volume 99, Mean Corpuscular Hemoglobin 30.6, Mean Corpuscular Hemoglobin Concent 30.8L, Red Cell Distribution Width 14.5, Platelet Count 269, Mean Platelet Volume 7.7, Neutrophils (%) (Auto) 72.8, Lymphocytes (%) (Auto) 18.4L, Monocytes (%) (Auto) 8.1, Eosinophils (%) (Auto) 0.1, Basophils (%) (Auto) 0.7, Sodium Level 145, Potassium Level 3.8, Chloride Level 107, Carbon Dioxide Level 40H, Anion Gap -2L, Blood Urea Nitrogen 28H, Creatinine 0.7, Estimat Glomerular Filtration Rate , Glucose Level 103, Calcium Level 6.9L Height (Feet): 5 Height (Inches): 7.00 Weight (Pounds): 171 General Appearance: no apparent distress, confused EENT: normal ENT inspection Neck: non-tender, normal alignment Cardiovascular: normal rate, regular rhythm Respiratory/Chest: no respiratory distress Abdomen: soft Extremities: non-tender Neurologic: disoriented JEYSON NAVAS Mar 09, 2017 20:37
[2017-03-09] MEDS: Atorvastatin 20mg tab ORAL SCH (21:17)
--- NOTE | 2017-03-09 21:24 | Infectious Diseases Prog Note ---
Assessment/Plan Problems: (1) Abscess of groin, left Assessment & Plan: improved on vancomycin, cefepime and metronidazol empirically, with antifungal topical , culture of the wound grew serratia licquifance, klebsiella pneumonia , and streptococcus group G , now on ceftriaxon and flagyl , continue local wound care , as per wound care service (2) Abscess of groin, right Assessment & Plan: management the same as above (3) HCAP (healthcare-associated pneumonia) Assessment & Plan: improving on vancomycin and cefepime empirically , now on ceftriaxon and flagyl , monitor CXR (4) CHF (congestive heart failure) Assessment & Plan: with acute exacerbation , continue diuresis , monitor out put and daily weight (5) Hypoglycemia Assessment & Plan: resolved, monitor glucose level closely (6) Agitated Assessment & Plan: resume psych meds , psychiatrist is following Subjective ROS Limited/Unobtainable: Yes Allergies: Coded Allergies: No Known Allergies (Unverified , 02/28/17) Subjective he was lying in bed, on oxygen via nasal canula , comfortable, with jerking movements of the head and the shoulders, no fever or chills, he gets SOB when he takes oxygen off Objective Vital Signs Last 24 Hour Vital Signs Date Time Temp Pulse Resp B/P (MAP) Pulse Ox O2 Delivery O2 Flow Rate FiO2 03/09/17 20:00 96.8 84 20 122/76 100 Nasal Cannula 03/09/17 16:00 97.8 86 20 114/77 93 03/09/17 16:00 89 03/09/17 12:00 97.8 75 20 122/78 93 03/09/17 09:02 60 116/71 03/09/17 08:31 92 Nasal Cannula 3.0 32 03/09/17 08:31 Nasal Cannula 3.0 32 03/09/17 08:00 78 03/09/17 08:00 97.4 68 22 122/68 92 03/09/17 04:09 97.0 60 24 116/71 90 Nasal Cannula 2.0 03/09/17 04:00 87 03/09/17 00:04 97.3 85 19 124/90 99 03/09/17 00:00 93 Height (Feet): 5 Height (Inches): 7.00 Weight (Pounds): 171 General Appearance: WD/WN, no acute distress HEENT: normocephalic, atraumatic, anicteric, mucous membranes moist, PERRL Respiratory/Chest: chest wall non-tender, no respiratory distress, no accessory muscle use, decreased breath sounds, crackles/rales Cardiovascular: normal peripheral pulses, normal rate, regular rhythm, no gallop/murmur, no JVD Abdomen: normal bowel sounds, soft, non tender, no organomegaly, non distended , no mass, no scars Extremities: no cyanosis, no clubbing Skin: no rash, no lesions Neurologic/Psychiatric: alert, responsive Laboratory Tests Test 03/09/17 04:40 White Blood Count 5.5 K/UL (4.8-10.8) Red Blood Count 3.79 M/UL (4.70-6.10) L Hemoglobin 11.6 G/DL (14.2-18.0) L Hematocrit 37.6 % (42.0-52.0) L Mean Corpuscular Volume 99 FL (80-99) Mean Corpuscular Hemoglobin 30.6 PG (27.0-31.0) Mean Corpuscular Hemoglobin Concent 30.8 G/DL (32.0-36.0) L Red Cell Distribution Width 14.5 % (11.6-14.8) Platelet Count 269 K/UL (150-450) Mean Platelet Volume 7.7 FL (6.5-10.1) Neutrophils (%) (Auto) 72.8 % (45.0-75.0) Lymphocytes (%) (Auto) 18.4 % (20.0-45.0) L Monocytes (%) (Auto) 8.1 % (1.0-10.0) Eosinophils (%) (Auto) 0.1 % (0.0-3.0) Basophils (%) (Auto) 0.7 % (0.0-2.0) Sodium Level 145 MMOL/L (136-145) Potassium Level 3.8 MMOL/L (3.5-5.1) Chloride Level 107 MMOL/L (98-107) Carbon Dioxide Level 40 MMOL/L (21-32) H Anion Gap -2 mmol/L (5-15) L Blood Urea Nitrogen 28 mg/dL (7-18) H Creatinine 0.7 MG/DL (0.55-1.30) Estimat Glomerular Filtration Rate mL/min (>60) Glucose Level 103 MG/DL (74-106) Calcium Level 6.9 MG/DL (8.5-10.1) L Current Medications Medications (Trade) Dose Ordered Sig/Vicky Route PRN Reason Start Time Stop Time Status Last Admin Dose Admin Aspirin (ASA) 81 mg DAILY ORAL 03/08/17 09:00 03/31/17 13:14 03/09/17 09:05 Atorvastatin Calcium (Lipitor) 40 mg BEDTIME ORAL 03/09/17 21:00 04/08/17 20:59 03/09/17 21:17 Ceftriaxone Sodium 2 gm/ Dextrose 55 ml @ 110 mls/hr Q24H IVPB 03/08/17 16:00 03/14/17 15:59 03/09/17 15:49 Clotrimazole (Lotrimin) 1 applic EVERY 12 HOURS TOPIC 03/08/17 09:00 03/31/17 20:59 03/09/17 21:22 Divalproex Sodium (Depakote) 500 mg EVERY 12 HOURS ORAL 03/08/17 09:00 04/05/17 20:59 03/09/17 21:18 Enoxaparin Sodium (Lovenox) 80 mg Q12HR SUBQ 03/08/17 09:00 04/03/17 19:29 03/09/17 21:20 Furosemide (Lasix) 40 mg DAILY ORAL 03/09/17 09:00 04/08/17 08:59 03/09/17 09:03 Metoprolol Succinate (Toprol XL) 50 mg DAILY ORAL 03/08/17 09:00 04/07/17 08:59 03/09/17 09:02 Metronidazole (Flagyl) 500 mg Q8HR ORAL 03/08/17 14:00 03/15/17 13:59 03/09/17 21:17 Olanzapine (ZyPREXA) 10 mg BEDTIME ORAL 03/08/17 21:00 04/05/17 20:59 03/09/17 21:17 Potassium Chloride (K-Dur) 20 meq TWICE A DAY ORAL 03/08/17 09:00 04/04/17 10:59 03/09/17 17:42 Mike Nguyen M.D. Mar 09, 2017 21:24
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
[2017-03-10] VITALS: BP 125/74
[2017-03-10 04:00] VITALS: BP 142/92
[2017-03-10] MEDS: metroNIDAZOLE 500mg tab ORAL SCH ×3 (05:56→20:38)
[2017-03-10 08:00] VITALS: BP 142/81
[2017-03-10] MEDS: Aspirin Baby 81mg ORAL SCH (09:06)
[2017-03-10] MEDS: Furosemide 40mg tab ORAL SCH (09:06)
[2017-03-10] MEDS: Metoprolol Succinate XL 50mg tab ORAL SCH (09:07)
[2017-03-10] MEDS: Depakote 500mg tab ORAL SCH ×2 (09:15→20:39)
[2017-03-10] MEDS: Enoxaparin 80mg Inj SUBQ SCH ×2 (09:18→20:40)
[2017-03-10 12:00] VITALS: BP 136/84
--- NOTE | 2017-03-10 12:33 | Cardiac Electrophysiology PN ---
Assessment/Plan Assessment/Plan 1. Acute on chronic diastolic congestive heart failure.Continue Lasix 40 po daily and Toprol XL 50. 2. Troponin leak.Levels flat and has no chest pain. Couldn't get the stress test done due to noncompliance and lack of consent. On Aspirin and Toprol and Lipitor 40 po qhs. In SR with PACs and PVCs. 3. HTN On Toprol 50 mg po daily and Lasix 4. Hypomagnesemia. 5. Severe protein-calorie malnutrition. 6. AMS DW RN and sitter Subjective Subjective More alert n SR.Sitter at bedside.On the monitor. BP better. Objective Last 24 Hour Vital Signs Date Time Temp Pulse Resp B/P (MAP) Pulse Ox O2 Delivery O2 Flow Rate FiO2 03/10/17 09:07 94 147/81 03/10/17 08:00 100 03/10/17 08:00 96.2 99 20 142/81 94 Nasal Cannula 03/10/17 07:32 Nasal Cannula 3.0 32 03/10/17 07:32 99 Nasal Cannula 3.0 32 03/10/17 04:00 97.7 90 22 142/92 99 Nasal Cannula 03/10/17 04:00 99 03/10/17 00:00 86 03/10/17 00:00 97.7 74 20 125/74 97 Nasal Cannula 03/09/17 20:00 105 03/09/17 20:00 96.8 84 20 122/76 100 Nasal Cannula 03/09/17 19:30 Nasal Cannula 3.0 32 03/09/17 19:30 93 Nasal Cannula 3.0 32 03/09/17 16:00 97.8 86 20 114/77 93 03/09/17 16:00 89 Intake and Output 03/09/17 03/10/17 19:00 07:00 Intake Total 1000 ml 800 ml Balance 1000 ml 800 ml Intake Oral 1000 ml 800 ml # Voids 5 # Bowel Movements 3 3 Objective HEENT: No JVD LUNGS: Coarse Rhonchi HEART: Regular rhythm and rate. Normal S1 and S2. ABDOMEN: Soft. EXTREMITIES: 1 plus edema. ZANA CHINCHILLA Mar 10, 2017 12:33
[2017-03-10] MEDS ORDERED: Tubing IV Secondary IV ONE (14:43)
[2017-03-10] MEDS ORDERED: NS 275ml ONE (14:43)
--- NOTE | 2017-03-10 14:56 | Infectious Diseases Prog Note ---
Assessment/Plan Problems: (1) Abscess of groin, left Assessment & Plan: improving on vancomycin, cefepime and metronidazol empirically, with antifungal topical , culture of the wound grew serratia licquifance, klebsiella pneumonia , and streptococcus group G , now on ceftriaxon and flagyl , continue local wound care , as per wound care service (2) Abscess of groin, right Assessment & Plan: management the same as above (3) HCAP (healthcare-associated pneumonia) Assessment & Plan: improving on vancomycin and cefepime empirically , now on ceftriaxon and flagyl , monitor CXR (4) CHF (congestive heart failure) Assessment & Plan: with acute exacerbation , continue diuresis , monitor out put and daily weight (5) Hypoglycemia Assessment & Plan: resolved, monitor glucose level closely (6) Agitated Assessment & Plan: resume psych meds , psychiatrist is following Subjective ROS Limited/Unobtainable: Yes Allergies: Coded Allergies: No Known Allergies (Unverified , 02/28/17) Subjective he was lying in bed, on oxygen via nasal canula , comfortable, with jerking movements of the head and the shoulders, no fever or chills, he gets SOB when he takes oxygen off Objective Vital Signs Last 24 Hour Vital Signs Date Time Temp Pulse Resp B/P (MAP) Pulse Ox O2 Delivery O2 Flow Rate FiO2 03/10/17 12:00 97.4 88 20 136/84 96 Nasal Cannula 03/10/17 09:07 94 147/81 03/10/17 08:00 100 03/10/17 08:00 96.2 99 20 142/81 94 Nasal Cannula 03/10/17 07:32 Nasal Cannula 3.0 32 03/10/17 07:32 99 Nasal Cannula 3.0 32 03/10/17 04:00 97.7 90 22 142/92 99 Nasal Cannula 03/10/17 04:00 99 03/10/17 00:00 86 03/10/17 00:00 97.7 74 20 125/74 97 Nasal Cannula 03/09/17 20:00 105 03/09/17 20:00 96.8 84 20 122/76 100 Nasal Cannula 03/09/17 19:30 Nasal Cannula 3.0 32 03/09/17 19:30 93 Nasal Cannula 3.0 32 03/09/17 16:00 97.8 86 20 114/77 93 03/09/17 16:00 89 Height (Feet): 5 Height (Inches): 7.00 Weight (Pounds): 177 General Appearance: WD/WN, no acute distress HEENT: normocephalic, atraumatic, anicteric, mucous membranes moist, PERRL Respiratory/Chest: chest wall non-tender, lungs clear, normal breath sounds, no respiratory distress, no accessory muscle use Cardiovascular: normal peripheral pulses, normal rate, regular rhythm, no gallop/murmur, no JVD Abdomen: normal bowel sounds, soft, non tender, no organomegaly, non distended , no mass, no scars Extremities: no cyanosis, no clubbing Skin: no rash, no lesions, ulcers Neurologic/Psychiatric: alert, responsive Current Medications Medications (Trade) Dose Ordered Sig/Vicky Route PRN Reason Start Time Stop Time Status Last Admin Dose Admin Aspirin (ASA) 81 mg DAILY ORAL 03/08/17 09:00 03/31/17 13:14 03/10/17 09:06 Atorvastatin Calcium (Lipitor) 40 mg BEDTIME ORAL 03/09/17 21:00 04/08/17 20:59 03/09/17 21:17 Ceftriaxone Sodium 2 gm/ Dextrose 55 ml @ 110 mls/hr Q24H IVPB 03/08/17 16:00 03/14/17 15:59 03/09/17 15:49 Clotrimazole (Lotrimin) 1 applic EVERY 12 HOURS TOPIC 03/08/17 09:00 03/31/17 20:59 03/10/17 09:14 Divalproex Sodium (Depakote) 500 mg EVERY 12 HOURS ORAL 03/08/17 09:00 04/05/17 20:59 03/10/17 09:15 Enoxaparin Sodium (Lovenox) 80 mg Q12HR SUBQ 03/08/17 09:00 04/03/17 19:29 03/10/17 09:18 Furosemide (Lasix) 40 mg DAILY ORAL 03/09/17 09:00 04/08/17 08:59 03/10/17 09:06 Metoprolol Succinate (Toprol XL) 50 mg DAILY ORAL 03/08/17 09:00 04/07/17 08:59 03/10/17 09:07 Metronidazole (Flagyl) 500 mg Q8HR ORAL 03/08/17 14:00 03/15/17 13:59 03/10/17 13:25 Olanzapine (ZyPREXA) 10 mg BEDTIME ORAL 03/08/17 21:00 04/05/17 20:59 03/09/17 21:17 Potassium Chloride (K-Dur) 20 meq TWICE A DAY ORAL 03/08/17 09:00 04/04/17 10:59 03/10/17 09:16 Mike Nguyen M.D. Mar 10, 2017 14:56
[2017-03-10 16:00] VITALS: BP 142/86
[2017-03-10] MEDS: cefTRIAXone 2 GM in D5W 55 ML IVPB SCH ×2 (17:23→17:26)
[2017-03-10 20:00] VITALS: BP 139/97
[2017-03-10] MEDS: Atorvastatin 20mg tab ORAL SCH (20:39)
--- NOTE | 2017-03-10 22:24 | General Progress Note ---
Assessment/Plan Status: stable, progressing Assessment/Plan schizoaffective d/o agitation -cont current meds Subjective Date patient seen: Mar 08, 2017 Neurologic/Psychiatric: Reports: anxiety, emotional problems Allergies: Coded Allergies: No Known Allergies (Unverified , 02/28/17) Subjective the pt was asleep not agitated Objective Last 24 Hour Vital Signs Date Time Temp Pulse Resp B/P (MAP) Pulse Ox O2 Delivery O2 Flow Rate FiO2 03/10/17 21:34 Nasal Cannula 3.0 32 03/10/17 21:34 95 Nasal Cannula 3.0 32 03/10/17 20:00 98.8 95 21 139/97 93 03/10/17 16:00 97.8 89 22 142/86 89 Nasal Cannula 03/10/17 16:00 96 03/10/17 12:00 84 03/10/17 12:00 97.4 88 20 136/84 96 Nasal Cannula 03/10/17 09:07 94 147/81 03/10/17 08:00 100 03/10/17 08:00 96.2 99 20 142/81 94 Nasal Cannula 03/10/17 07:32 Nasal Cannula 3.0 32 03/10/17 07:32 99 Nasal Cannula 3.0 32 03/10/17 04:00 97.7 90 22 142/92 99 Nasal Cannula 03/10/17 04:00 99 03/10/17 00:00 86 03/10/17 00:00 97.7 74 20 125/74 97 Nasal Cannula Intake and Output 03/09/17 03/10/17 19:00 07:00 Intake Total 1000 ml 800 ml Balance 1000 ml 800 ml Intake Oral 1000 ml 800 ml # Voids 5 # Bowel Movements 3 3 Height (Feet): 5 Height (Inches): 7.00 Weight (Pounds): 177 General Appearance: no apparent distress, agitated Neurologic: alert, responsive, disoriented Saul Munguia M.D. Mar 10, 2017 22:24
--- NOTE | 2017-03-10 22:25 | Geriatric Progress Note ---
Subjective Interval Events 03/09/17 Mood/Memory: Reports: prior hx, anxiety, depressed feelings, emotional problems Geriatric Geriatric Last 24 Hour Vital Signs Date Time Temp Pulse Resp B/P (MAP) Pulse Ox O2 Delivery O2 Flow Rate FiO2 03/10/17 21:34 Nasal Cannula 3.0 32 03/10/17 21:34 95 Nasal Cannula 3.0 32 03/10/17 20:00 98.8 95 21 139/97 93 03/10/17 16:00 97.8 89 22 142/86 89 Nasal Cannula 03/10/17 16:00 96 03/10/17 12:00 84 03/10/17 12:00 97.4 88 20 136/84 96 Nasal Cannula 03/10/17 09:07 94 147/81 03/10/17 08:00 100 03/10/17 08:00 96.2 99 20 142/81 94 Nasal Cannula 03/10/17 07:32 Nasal Cannula 3.0 32 03/10/17 07:32 99 Nasal Cannula 3.0 32 03/10/17 04:00 97.7 90 22 142/92 99 Nasal Cannula 03/10/17 04:00 99 03/10/17 00:00 86 03/10/17 00:00 97.7 74 20 125/74 97 Nasal Cannula Intake and Output 03/09/17 03/10/17 19:00 07:00 Intake Total 1000 ml 800 ml Balance 1000 ml 800 ml Intake Oral 1000 ml 800 ml # Voids 5 # Bowel Movements 3 3 Current Medications Medications (Trade) Dose Ordered Sig/Vicky Route PRN Reason Start Time Stop Time Status Last Admin Dose Admin Aspirin (ASA) 81 mg DAILY ORAL 03/08/17 09:00 03/31/17 13:14 03/10/17 09:06 Atorvastatin Calcium (Lipitor) 40 mg BEDTIME ORAL 03/09/17 21:00 04/08/17 20:59 03/10/17 20:39 Clotrimazole (Lotrimin) 1 applic EVERY 12 HOURS TOPIC 03/08/17 09:00 03/31/17 20:59 03/10/17 20:46 Divalproex Sodium (Depakote) 500 mg EVERY 12 HOURS ORAL 03/08/17 09:00 04/05/17 20:59 03/10/17 20:39 Enoxaparin Sodium (Lovenox) 80 mg Q12HR SUBQ 03/08/17 09:00 04/03/17 19:29 03/10/17 20:40 Furosemide (Lasix) 40 mg DAILY ORAL 03/09/17 09:00 04/08/17 08:59 03/10/17 09:06 Levofloxacin (Levaquin) 500 mg DAILY ORAL 03/11/17 09:00 03/18/17 08:59 Metoprolol Succinate (Toprol XL) 50 mg DAILY ORAL 03/08/17 09:00 04/07/17 08:59 03/10/17 09:07 Metronidazole (Flagyl) 500 mg Q8HR ORAL 03/08/17 14:00 03/15/17 13:59 03/10/17 20:38 Olanzapine (ZyPREXA) 10 mg BEDTIME ORAL 03/08/17 21:00 04/05/17 20:59 03/10/17 20:39 Potassium Chloride (K-Dur) 20 meq TWICE A DAY ORAL 03/08/17 09:00 04/04/17 10:59 03/10/17 17:23 Height (Feet): 5 Height (Inches): 7.00 Weight (Pounds): 177 Saul Munguia M.D. Mar 10, 2017 22:25
[2017-03-11] VITALS: BP 146/95
--- NOTE | 2017-03-11 03:15 | Progress Note ---
DATE: 03/10/2017 CARDIOLOGY PROGRESS NOTE SUBJECTIVE: The patient is without chest pain. Denies shortness of breath. He is on anti-platelet therapy and statin drug. He is now on an oral diuretic. OBJECTIVE: VITAL SIGNS: Blood pressure 142/81, pulse 99, respiratory rate 20, afebrile. LUNGS: Coarse breath sounds. Scattered rhonchi. HEART: Irregularly irregular rhythm. Normal S1, S2. ABDOMEN: Soft. EXTREMITIES: Trace lower extremity edema. LABORATORY DATA: White count 5.5, hemoglobin 11.6. Bicarbonate 40, BUN 28, creatinine 0.7. IMPRESSION: 1. Acute myocardial infarction. 2. Acute and chronic diastolic congestive heart failure. 3. Metabolic alkalosis, recovered. 4. Hypokalemia. 5. Dementia with confusion with agitation. 6. Hypomagnesemia. 7. Severe protein-calorie malnutrition. PLAN: Medical therapy. Unable to obtain stress test. The patient asymptomatic. No signs of left ventricular dysfunction by echocardiogram, developing contraction alkalosis. Recommend to hold furosemide. Continue remainder of antianginal regimen without change. Monitor metabolic parameters. Re-dose maintenance diuretic once bicarbonate levels improved to baseline. Rehan Grove M.D. DR: Rao JOB#: [id number] CC:
[2017-03-11 04:00] VITALS: BP 142/87
[2017-03-11] MEDS: metroNIDAZOLE 500mg tab ORAL SCH ×3 (06:16→22:16)
[2017-03-11 08:00] VITALS: BP 147/112
[2017-03-11 08:39] LABS: BASOPHILS % (AUTO) 0.8 % (0.0-2.0); EOSINOPHILS % (AUTO) 0.1 % (0.0-3.0); HEMATOCRIT 35.3 % (42.0-52.0); HEMOGLOBIN 10.6 G/DL (14.2-18.0); LYMPHOCYTES % (AUTO) 25.8 % (20.0-45.0); MEAN CORPUSCULAR VOLUME 99 FL (80-99); MONOCYTES % (AUTO) 9.9 % (1.0-10.0); NEUTROPHILS % (AUTO) 63.4 % (45.0-75.0); PLATELET COUNT 261 K/UL (150-450); RED BLOOD COUNT 3.55 M/UL (4.70-6.10); RED CELL DISTRIBUTION WIDTH 14.9 % (11.6-14.8); WHITE BLOOD COUNT 7.3 K/UL (4.8-10.8)
--- NOTE | 2017-03-11 08:43 | Nephrology Progress Note ---
Assessment/Plan Problem List: (1) Azotemia (2) CHF (congestive heart failure) (3) Elevated troponin (4) Abscess of groin, left (5) Abscess of groin, right (6) HCAP (healthcare-associated pneumonia) (7) Altered mental status Plan Continue current treatment plan Monitor lytes, replace prn Renally dose med, avoid nephrotoxins Monitor intake and output Abx per ID DVT prophylaxis Monitor neuro status Continue wound care per recs AM labs Subjective Constitutional: Denies: no symptoms, chills, diaphoresis, fever, malaise, weakness, other HEENT: Denies: no symptoms, eye pain, blurred vision, tearing, double vision, ear pain, ear discharge, nose pain, nose congestion, throat pain, throat swelling, mouth pain, mouth swelling, other Genitourinary: Denies: no symptoms, burning, discharge, frequency, flank pain, hematuria, incontinence, pain, urgency, other Neurologic/Psychiatric: Denies: no symptoms, anxiety, depressed, emotional problems, headache, numbness, paresthesia, pre-existing deficit, seizure, tingling, tremors, weakness, other Subjective In bed, in no distress, denies discomfort Objective Objective Last 24 Hour Vital Signs Date Time Temp Pulse Resp B/P (MAP) Pulse Ox O2 Delivery O2 Flow Rate FiO2 03/11/17 07:54 Room Air 03/11/17 07:53 92 Room Air 21 03/11/17 04:00 91 03/11/17 04:00 97.5 92 22 142/87 97 03/11/17 00:00 97.2 89 22 146/95 95 03/11/17 00:00 91 03/10/17 21:34 Nasal Cannula 3.0 32 03/10/17 21:34 95 Nasal Cannula 3.0 32 03/10/17 20:00 95 03/10/17 20:00 98.8 95 21 139/97 93 03/10/17 16:00 97.8 89 22 142/86 89 Nasal Cannula 03/10/17 16:00 96 03/10/17 12:00 84 03/10/17 12:00 97.4 88 20 136/84 96 Nasal Cannula 03/10/17 09:07 94 147/81 Intake and Output 03/10/17 03/11/17 19:00 07:00 Intake Total 740 ml Output Total 475 ml Balance 265 ml Intake Oral 740 ml Output Urine Total 475 ml # Voids 3 # Bowel Movements 4 2 Laboratory Tests 03/11/17 07:30: White Blood Count 7.3, Red Blood Count 3.55L, Hemoglobin 10.6L, Hematocrit 35.3L , Mean Corpuscular Volume 99, Mean Corpuscular Hemoglobin 29.8, Mean Corpuscular Hemoglobin Concent 30.0L, Red Cell Distribution Width 14.9H, Platelet Count 261, Mean Platelet Volume 8.5, Neutrophils (%) (Auto) 63.4, Lymphocytes (%) (Auto) 25.8, Monocytes (%) (Auto) 9.9, Eosinophils (%) (Auto) 0.1, Basophils (%) (Auto) 0.8, Sodium Level [Pending], Potassium Level [Pending] , Chloride Level [Pending], Carbon Dioxide Level [Pending], Blood Urea Nitrogen [Pending], Creatinine [Pending], Estimat Glomerular Filtration Rate [Pending], Glucose Level [Pending], Calcium Level [Pending], Magnesium Level [Pending], Total Bilirubin [Pending], Aspartate Amino Transf (AST/SGOT) [Pending], Alanine Aminotransferase (ALT/SGPT) [Pending], Alkaline Phosphatase [Pending], Pro-B- Type Natriuretic Peptide [Pending], Total Protein [Pending], Albumin [Pending], Globulin [Pending] Height (Feet): 5 Height (Inches): 7.00 Weight (Pounds): 183 General Appearance: no apparent distress, confused EENT: normal ENT inspection Neck: non-tender, normal alignment Cardiovascular: normal rate, regular rhythm Respiratory/Chest: normal breath sounds, no respiratory distress Abdomen: soft, no organomegaly Extremities: non-tender, normal inspection Neurologic: alert, oriented x 3, responsive, normal mood/affect Delisa Miranda N.P. Mar 11, 2017 08:43
[2017-03-11] MEDS ORDERED: Levofloxacin 500mg tab ORAL SCH (09:00)
[2017-03-11] MEDS: Aspirin Baby 81mg ORAL SCH (09:01)
[2017-03-11] MEDS: Metoprolol Succinate XL 50mg tab ORAL SCH (09:01)
[2017-03-11] MEDS: Depakote 500mg tab ORAL SCH ×2 (09:02→22:09)
[2017-03-11] MEDS: Enoxaparin 80mg Inj SUBQ SCH ×2 (09:03→22:11)
[2017-03-11 09:06] LABS: ALANINE AMINOTRANSFERASE 61 U/L (12-78); ALBUMIN 2.1 G/DL (3.4-5.0); ALBUMIN/GLOBULIN RATIO 0.4 (1.0-2.7); ALKALINE PHOSPHATASE 214 U/L (46-116); ANION GAP 1 mmol/L (5-15); ASPARTATE AMINO TRANSFERASE 66 U/L (15-37); BILIRUBIN,TOTAL 0.7 MG/DL (0.2-1.0); BLOOD UREA NITROGEN 25 mg/dL (7-18); CALCIUM 7.4 MG/DL (8.5-10.1); CARBON DIOXIDE 37 MMOL/L (21-32); CHLORIDE 108 MMOL/L (98-107); CREATININE 0.8 MG/DL (0.55-1.30); POTASSIUM 4.5 MMOL/L (3.5-5.1); SODIUM 146 MMOL/L (136-145)
--- NOTE | 2017-03-11 09:27 | Pulmonology Progress Note ---
Assessment/Plan Assessment/Plan IMPRESSION: 1. Acute myocardial ischemia. 2. 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 3. Chronic obstructive pulmonary disease. 4. Moderate protein-calorie malnutrition. 5. Prerenal azotemia. 6. Metabolic encephalopathy. 7. Groin abscesses. 8. Hypertensive heart disease 9. 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 Antimicrobials. 2. Bronchodilators. 3. anticoagulants - change to PO soon 4. Diuretic therapy. 6. Titration of antihypertensives. 7. Continue aspirin prophylaxis. Subjective Interval Events: None Constitutional: Reports: no symptoms HEENT: Repors: no symptoms Respiratory: Reports: no symptoms Cardiovascular: Reports: no symptoms Gastrointestinal/Abdominal: Reports: no symptoms Allergies: Coded Allergies: No Known Allergies (Unverified , 02/28/17) Objective Last 24 Hour Vital Signs Date Time Temp Pulse Resp B/P (MAP) Pulse Ox O2 Delivery O2 Flow Rate FiO2 03/11/17 09:01 92 147/112 03/11/17 07:54 Room Air 03/11/17 07:53 92 Room Air 21 03/11/17 04:00 91 03/11/17 04:00 97.5 92 22 142/87 97 03/11/17 00:00 97.2 89 22 146/95 95 03/11/17 00:00 91 03/10/17 21:34 Nasal Cannula 3.0 32 03/10/17 21:34 95 Nasal Cannula 3.0 32 03/10/17 20:00 95 03/10/17 20:00 98.8 95 21 139/97 93 03/10/17 16:00 97.8 89 22 142/86 89 Nasal Cannula 03/10/17 16:00 96 03/10/17 12:00 84 03/10/17 12:00 97.4 88 20 136/84 96 Nasal Cannula Intake and Output 03/10/17 03/11/17 19:00 07:00 Intake Total 740 ml Output Total 475 ml Balance 265 ml Intake Oral 740 ml Output Urine Total 475 ml # Voids 3 # Bowel Movements 4 2 General Appearance: no acute distress HEENT: normocephalic Respiratory/Chest: chest wall non-tender, lungs clear Cardiovascular: normal peripheral pulses, normal rate Abdomen: normal bowel sounds, soft, non tender Laboratory Tests 03/11/17 07:30: White Blood Count 7.3, Red Blood Count 3.55L, Hemoglobin 10.6L, Hematocrit 35.3L , Mean Corpuscular Volume 99, Mean Corpuscular Hemoglobin 29.8, Mean Corpuscular Hemoglobin Concent 30.0L, Red Cell Distribution Width 14.9H, Platelet Count 261, Mean Platelet Volume 8.5, Neutrophils (%) (Auto) 63.4, Lymphocytes (%) (Auto) 25.8, Monocytes (%) (Auto) 9.9, Eosinophils (%) (Auto) 0.1, Basophils (%) (Auto) 0.8, Sodium Level 146H, Potassium Level 4.5, Chloride Level 108H, Carbon Dioxide Level 37H, Anion Gap 1L, Blood Urea Nitrogen 25H, Creatinine 0.8, Estimat Glomerular Filtration Rate , Glucose Level 147H, Calcium Level 7.4L, Magnesium Level 1.8, Total Bilirubin 0.7, Aspartate Amino Transf (AST/SGOT) 66H, Alanine Aminotransferase (ALT/SGPT) 61, Alkaline Phosphatase 214H, Pro-B-Type Natriuretic Peptide 44073K, Total Protein 7.0, Albumin 2.1L, Globulin 4.9, Albumin/Globulin Ratio 0.4L Current Medications Medications (Trade) Dose Ordered Sig/Vicky Route PRN Reason Start Time Stop Time Status Last Admin Dose Admin Aspirin (ASA) 81 mg DAILY ORAL 03/08/17 09:00 03/31/17 13:14 03/11/17 09:01 Atorvastatin Calcium (Lipitor) 40 mg BEDTIME ORAL 03/09/17 21:00 04/08/17 20:59 03/10/17 20:39 Clotrimazole (Lotrimin) 1 applic EVERY 12 HOURS TOPIC 03/08/17 09:00 03/31/17 20:59 03/11/17 09:05 Divalproex Sodium (Depakote) 500 mg EVERY 12 HOURS ORAL 03/08/17 09:00 04/05/17 20:59 03/11/17 09:02 Enoxaparin Sodium (Lovenox) 80 mg Q12HR SUBQ 03/08/17 09:00 04/03/17 19:29 03/11/17 09:03 Levofloxacin (Levaquin) 500 mg DAILY ORAL 03/11/17 09:00 03/18/17 08:59 03/11/17 09:00 Metoprolol Succinate (Toprol XL) 50 mg DAILY ORAL 03/08/17 09:00 04/07/17 08:59 03/11/17 09:01 Metronidazole (Flagyl) 500 mg Q8HR ORAL 03/08/17 14:00 03/15/17 13:59 03/11/17 06:16 Olanzapine (ZyPREXA) 10 mg BEDTIME ORAL 03/08/17 21:00 04/05/17 20:59 03/10/17 20:39 López Schofield MD Mar 11, 2017 09:27
--- NOTE | 2017-03-11 11:33 | Cardiac Electrophysiology PN ---
Assessment/Plan Assessment/Plan 1. Acute on chronic diastolic congestive heart failure.Continue Lasix 40 po daily and Toprol XL 50. 2. Troponin leak.Levels flat and has no chest pain. Couldn't get the stress test done due to noncompliance and lack of consent. On Aspirin, Toprol and Lipitor 40 po qhs. In SR with PACs and PVCs. Awaiting echo report 3. HTN On Toprol 50 mg po daily and Lasix 4. Hypomagnesemia. 5. Severe protein-calorie malnutrition. 6. AMS DW RN and sitter Subjective Subjective No chest pain or SOB.Sitter at bedside. Objective Last 24 Hour Vital Signs Date Time Temp Pulse Resp B/P (MAP) Pulse Ox O2 Delivery O2 Flow Rate FiO2 03/11/17 09:01 92 147/112 03/11/17 08:00 97.2 99 20 147/112 94 03/11/17 07:54 Room Air 03/11/17 07:53 92 Room Air 21 03/11/17 04:00 91 03/11/17 04:00 97.5 92 22 142/87 97 03/11/17 00:00 97.2 89 22 146/95 95 03/11/17 00:00 91 03/10/17 21:34 Nasal Cannula 3.0 32 03/10/17 21:34 95 Nasal Cannula 3.0 32 03/10/17 20:00 95 03/10/17 20:00 98.8 95 21 139/97 93 03/10/17 16:00 97.8 89 22 142/86 89 Nasal Cannula 03/10/17 16:00 96 03/10/17 12:00 84 03/10/17 12:00 97.4 88 20 136/84 96 Nasal Cannula Intake and Output 03/10/17 03/11/17 19:00 07:00 Intake Total 740 ml Output Total 475 ml Balance 265 ml Intake Oral 740 ml Output Urine Total 475 ml # Voids 3 # Bowel Movements 4 2 Laboratory Tests Test 03/11/17 07:30 White Blood Count 7.3 K/UL (4.8-10.8) Red Blood Count 3.55 M/UL (4.70-6.10) L Hemoglobin 10.6 G/DL (14.2-18.0) L Hematocrit 35.3 % (42.0-52.0) L Mean Corpuscular Volume 99 FL (80-99) Mean Corpuscular Hemoglobin 29.8 PG (27.0-31.0) Mean Corpuscular Hemoglobin Concent 30.0 G/DL (32.0-36.0) L Red Cell Distribution Width 14.9 % (11.6-14.8) H Platelet Count 261 K/UL (150-450) Mean Platelet Volume 8.5 FL (6.5-10.1) Neutrophils (%) (Auto) 63.4 % (45.0-75.0) Lymphocytes (%) (Auto) 25.8 % (20.0-45.0) Monocytes (%) (Auto) 9.9 % (1.0-10.0) Eosinophils (%) (Auto) 0.1 % (0.0-3.0) Basophils (%) (Auto) 0.8 % (0.0-2.0) Sodium Level 146 MMOL/L (136-145) H Potassium Level 4.5 MMOL/L (3.5-5.1) Chloride Level 108 MMOL/L (98-107) H Carbon Dioxide Level 37 MMOL/L (21-32) H Anion Gap 1 mmol/L (5-15) L Blood Urea Nitrogen 25 mg/dL (7-18) H Creatinine 0.8 MG/DL (0.55-1.30) Estimat Glomerular Filtration Rate mL/min (>60) Glucose Level 147 MG/DL (74-106) H Calcium Level 7.4 MG/DL (8.5-10.1) L Magnesium Level 1.8 MG/DL (1.8-2.4) Total Bilirubin 0.7 MG/DL (0.2-1.0) Aspartate Amino Transf (AST/SGOT) 66 U/L (15-37) H Alanine Aminotransferase (ALT/SGPT) 61 U/L (12-78) Alkaline Phosphatase 214 U/L (46-116) H Pro-B-Type Natriuretic Peptide 78162 pg/mL (0-125) H Total Protein 7.0 G/DL (6.4-8.2) Albumin 2.1 G/DL (3.4-5.0) L Globulin 4.9 g/dL Albumin/Globulin Ratio 0.4 (1.0-2.7) L Objective HEENT: No JVD LUNGS: Coarse Rhonchi HEART: Regular rhythm and rate. Normal S1 and S2. ABDOMEN: Soft. EXTREMITIES: 1 plus edema. ZANA CHINCHILLA Mar 11, 2017 11:33
[2017-03-11 12:00] VITALS: BP 140/98
--- NOTE | 2017-03-11 12:26 | General Progress Note ---
Assessment/Plan Status: stable, progressing Assessment/Plan schizoaffective d/o agitation -cont current meds Subjective Date patient seen: Mar 11, 2017 Neurologic/Psychiatric: Reports: anxiety, depressed, emotional problems Allergies: Coded Allergies: No Known Allergies (Unverified , 02/28/17) Subjective the pt has episodes of restlessness and agitation Objective Last 24 Hour Vital Signs Date Time Temp Pulse Resp B/P (MAP) Pulse Ox O2 Delivery O2 Flow Rate FiO2 03/11/17 12:00 98.8 103 20 140/98 92 03/11/17 09:01 92 147/112 03/11/17 08:00 97.2 99 20 147/112 94 03/11/17 07:54 Room Air 03/11/17 07:53 92 Room Air 21 03/11/17 04:00 91 03/11/17 04:00 97.5 92 22 142/87 97 03/11/17 00:00 97.2 89 22 146/95 95 03/11/17 00:00 91 03/10/17 21:34 Nasal Cannula 3.0 32 03/10/17 21:34 95 Nasal Cannula 3.0 32 03/10/17 20:00 95 03/10/17 20:00 98.8 95 21 139/97 93 03/10/17 16:00 97.8 89 22 142/86 89 Nasal Cannula 03/10/17 16:00 96 Intake and Output 03/10/17 03/11/17 19:00 07:00 Intake Total 740 ml Output Total 475 ml Balance 265 ml Intake Oral 740 ml Output Urine Total 475 ml # Voids 3 # Bowel Movements 4 2 Laboratory Tests 03/11/17 07:30: White Blood Count 7.3, Red Blood Count 3.55L, Hemoglobin 10.6L, Hematocrit 35.3L , Mean Corpuscular Volume 99, Mean Corpuscular Hemoglobin 29.8, Mean Corpuscular Hemoglobin Concent 30.0L, Red Cell Distribution Width 14.9H, Platelet Count 261, Mean Platelet Volume 8.5, Neutrophils (%) (Auto) 63.4, Lymphocytes (%) (Auto) 25.8, Monocytes (%) (Auto) 9.9, Eosinophils (%) (Auto) 0.1, Basophils (%) (Auto) 0.8, Sodium Level 146H, Potassium Level 4.5, Chloride Level 108H, Carbon Dioxide Level 37H, Anion Gap 1L, Blood Urea Nitrogen 25H, Creatinine 0.8, Estimat Glomerular Filtration Rate , Glucose Level 147H, Calcium Level 7.4L, Magnesium Level 1.8, Total Bilirubin 0.7, Aspartate Amino Transf (AST/SGOT) 66H, Alanine Aminotransferase (ALT/SGPT) 61, Alkaline Phosphatase 214H, Pro-B-Type Natriuretic Peptide 48870C, Total Protein 7.0, Albumin 2.1L, Globulin 4.9, Albumin/Globulin Ratio 0.4L Height (Feet): 5 Height (Inches): 7.00 Weight (Pounds): 183 General Appearance: no apparent distress, alert Neurologic: alert, oriented x 3, responsive, depressed affect Saul Munguia M.D. Mar 11, 2017 12:26
--- NOTE | 2017-03-11 13:39 | Nephrology Progress Note ---
Assessment/Plan Problem List: (1) Abscess of groin, left (2) Abscess of groin, right (3) Azotemia (4) Altered mental status (5) Agitated (6) CHF (congestive heart failure) Plan ID following. Cont abx per ID rec. On levofloxacin. Psych following. Subjective Subjective calm. Objective Objective Last 24 Hour Vital Signs Date Time Temp Pulse Resp B/P (MAP) Pulse Ox O2 Delivery O2 Flow Rate FiO2 03/11/17 12:00 98.8 103 20 140/98 92 03/11/17 09:01 92 147/112 03/11/17 08:00 97.2 99 20 147/112 94 03/11/17 07:54 Room Air 03/11/17 07:53 92 Room Air 21 03/11/17 04:00 91 03/11/17 04:00 97.5 92 22 142/87 97 03/11/17 00:00 97.2 89 22 146/95 95 03/11/17 00:00 91 03/10/17 21:34 Nasal Cannula 3.0 32 03/10/17 21:34 95 Nasal Cannula 3.0 32 03/10/17 20:00 95 03/10/17 20:00 98.8 95 21 139/97 93 03/10/17 16:00 97.8 89 22 142/86 89 Nasal Cannula 03/10/17 16:00 96 Intake and Output 03/10/17 03/11/17 19:00 07:00 Intake Total 740 ml Output Total 475 ml Balance 265 ml Intake Oral 740 ml Output Urine Total 475 ml # Voids 3 # Bowel Movements 4 2 Laboratory Tests 03/11/17 07:30: White Blood Count 7.3, Red Blood Count 3.55L, Hemoglobin 10.6L, Hematocrit 35.3L , Mean Corpuscular Volume 99, Mean Corpuscular Hemoglobin 29.8, Mean Corpuscular Hemoglobin Concent 30.0L, Red Cell Distribution Width 14.9H, Platelet Count 261, Mean Platelet Volume 8.5, Neutrophils (%) (Auto) 63.4, Lymphocytes (%) (Auto) 25.8, Monocytes (%) (Auto) 9.9, Eosinophils (%) (Auto) 0.1, Basophils (%) (Auto) 0.8, Sodium Level 146H, Potassium Level 4.5, Chloride Level 108H, Carbon Dioxide Level 37H, Anion Gap 1L, Blood Urea Nitrogen 25H, Creatinine 0.8, Estimat Glomerular Filtration Rate , Glucose Level 147H, Calcium Level 7.4L, Magnesium Level 1.8, Total Bilirubin 0.7, Aspartate Amino Transf (AST/SGOT) 66H, Alanine Aminotransferase (ALT/SGPT) 61, Alkaline Phosphatase 214H, Pro-B-Type Natriuretic Peptide 48333K, Total Protein 7.0, Albumin 2.1L, Globulin 4.9, Albumin/Globulin Ratio 0.4L Height (Feet): 5 Height (Inches): 7.00 Weight (Pounds): 183 General Appearance: no apparent distress Cardiovascular: normal rate, regular rhythm Respiratory/Chest: lungs clear Abdomen: non tender, soft Extremities: non-pitting Neurologic: alert, disoriented ADRIANA BRAND Mar 11, 2017 13:39
--- NOTE | 2017-03-11 16:39 | Cardiology Report ---
APPROVED REPORT EXAM: Two-dimensional and M-mode echocardiogram with Doppler and color Doppler. INDICATION Arrhythmia Congestive Heart Failure M-Mode DIMENSIONS IVSd1.2 (0.7-1.1cm)Left Atrium (MM)3.9 (1.6-4.0cm) LVDd6.1 (3.5-5.6cm)Aortic Root3.9 (2.0-3.7cm) PWd1.3 (0.7-1.1cm)Aortic Cusp Exc.2.2 (1.5-2.0cm) IVSs1.6 cm LVDs5.0 (2.5-4.0cm) PWs1.4 cm Mild left atrial enlargement. Mild global left ventricular hypokinesi, however better motion in seen in proxima lateral wall Left ventricular ejection fraction estimated to be 35- 40%. No evidenceof left ventricular hypertrophy . Small hemodynamically insignificant plural effusion. . Mild bi- atrial enlargement. Thickened mitral valve leaflets with normal excursion. Mitral annulus and aortic root calcification. Normal pulmonic valve structure. Normal tricuspid valve structure. IVC dilated at 3.1 cm with physiologic collapse suggestive of increased RA pressure. A color flow and spectral Doppler study was performed and revealed: Trace aortic insufficiency. Mild mitral regurgitation. Mitral diastolic velocities suggest reduced left ventricular relaxation c/w mild LV diastolic dysfunction (Grade I ). Mild to moderate tricuspid regurgitation. Tricuspid systolic velocities suggests peak right ventricular systolic pressure of 65 mmHg consistent with severe pulmonary hypertension. No Pulmonic regurgitation present.
[2017-03-11 20:00] VITALS: BP 146/99
[2017-03-11] MEDS: Atorvastatin 20mg tab ORAL SCH (22:09)
[2017-03-12] VITALS: BP 140/77
[2017-03-12 04:00] VITALS: BP 153/92
--- NOTE | 2017-03-12 05:15 | Progress Note ---
DATE: 03/11/2017 CARDIOLOGY PROGRESS NOTE SUBJECTIVE: The patient remains with labile blood pressure readings. Continues on antimicrobials. Respiratory hygiene and diuretics are being continued. PHYSICAL EXAMINATION: VITAL SIGNS: Blood pressure 147/112, pulse 92, and respiratory rate 20. LUNGS: Coarse breath sounds. Scattered rhonchi. HEART: Regular rhythm and rate. Normal S1, S2. ABDOMEN: Soft. EXTREMITIES: Trace edema. IMPRESSION: 1. Acute myocardial infarction. 2. Acute on chronic diastolic congestive heart failure. 3. Hypomagnesemia. 4. Hypertensive heart disease with malignant range blood pressure. 5. Severe protein-calorie malnutrition. 6. Dementia with agitation. PLAN: 1. Continue diuresis. 2. Maintain anti-platelet therapy and statin drug as well as beta-hussein. 3. Titrate antihypertensives. 4. Protein supplement. 5. As needed antihypertensives for blood pressure spikes, which may be mood related. Rehan Grove M.D. DR: RYLEY JOB#: [id number] CC:
[2017-03-12] MEDS: metroNIDAZOLE 500mg tab ORAL SCH (05:26)
[2017-03-12 08:00] VITALS: BP 124/81
[2017-03-12] MEDS ORDERED: Levofloxacin 500mg tab ORAL SCH (09:00)
[2017-03-12] MEDS: Aspirin Baby 81mg ORAL SCH (10:07)
[2017-03-12] MEDS: Depakote 500mg tab ORAL SCH ×2 (10:08→22:13)
[2017-03-12] MEDS: Metoprolol Succinate XL 50mg tab ORAL SCH (10:08)
[2017-03-12] MEDS: Enoxaparin 80mg Inj SUBQ SCH ×2 (10:09→22:15)
[2017-03-12 12:00] VITALS: BP 151/67
--- NOTE | 2017-03-12 14:48 | Infectious Diseases Prog Note ---
Assessment/Plan Problems: (1) Abscess of groin, left Assessment & Plan: improved on vancomycin, cefepime and metronidazol empirically, with antifungal topical , culture of the wound grew serratia licquifance, klebsiella pneumonia , and streptococcus group G , on ceftriaxon and flagyl , already recieved two weeks , will stop antibiotics , continue local wound care , as per wound care service (2) Abscess of groin, right Assessment & Plan: management the same as above (3) HCAP (healthcare-associated pneumonia) Assessment & Plan: improved on vancomycin and cefepime empirically , now on ceftriaxon and flagyl , will stop antibiotics . monitor CXR (4) CHF (congestive heart failure) Assessment & Plan: with acute exacerbation , continue diuresis , monitor out put and daily weight (5) Hypoglycemia Assessment & Plan: resolved, monitor glucose level closely (6) Agitated Assessment & Plan: resume psych meds , psychiatrist is following Subjective ROS Limited/Unobtainable: Yes Allergies: Coded Allergies: No Known Allergies (Unverified , 02/28/17) Subjective he was in bed, getting cleaned up , comfortable, with jerking movements of the head and the shoulders, no fever or chills, no SOB Objective Vital Signs Last 24 Hour Vital Signs Date Time Temp Pulse Resp B/P (MAP) Pulse Ox O2 Delivery O2 Flow Rate FiO2 03/12/17 10:08 84 153/92 03/12/17 07:51 Nasal Cannula 3.0 32 03/12/17 07:51 96 Nasal Cannula 3.0 32 03/12/17 07:50 84 18 Nasal Cannula 3.0 32 03/12/17 04:00 97.5 90 22 153/92 97 03/12/17 00:00 97.5 77 20 140/77 96 03/11/17 21:07 79 18 Room Air 21 03/11/17 21:07 95 Room Air 21 03/11/17 21:07 Room Air 21 03/11/17 20:00 97.0 93 22 146/99 93 Height (Feet): 5 Height (Inches): 7.00 Weight (Pounds): 184 General Appearance: WD/WN, no acute distress, cachetic HEENT: normocephalic, atraumatic, anicteric, mucous membranes moist Respiratory/Chest: chest wall non-tender, lungs clear, normal breath sounds, no respiratory distress, no accessory muscle use Cardiovascular: normal peripheral pulses, normal rate, regular rhythm, no gallop/murmur, no JVD Abdomen: normal bowel sounds, soft, non tender, no organomegaly, non distended , no mass, no scars Extremities: no cyanosis, no clubbing Skin: no rash, no lesions Neurologic/Psychiatric: alert, responsive Current Medications Medications (Trade) Dose Ordered Sig/Vicky Route PRN Reason Start Time Stop Time Status Last Admin Dose Admin Aspirin (ASA) 81 mg DAILY ORAL 03/12/17 09:00 03/31/17 13:14 03/12/17 10:07 Atorvastatin Calcium (Lipitor) 40 mg BEDTIME ORAL 03/11/17 21:00 04/08/17 20:59 03/11/17 22:09 Clotrimazole (Lotrimin) 1 applic EVERY 12 HOURS TOPIC 03/11/17 21:00 03/31/17 20:59 03/11/17 21:00 Divalproex Sodium (Depakote) 500 mg EVERY 12 HOURS ORAL 03/11/17 21:00 04/05/17 20:59 03/12/17 10:08 Enoxaparin Sodium (Lovenox) 80 mg Q12HR SUBQ 03/11/17 21:00 04/03/17 19:29 03/12/17 10:09 Levofloxacin (Levaquin) 500 mg DAILY ORAL 03/12/17 09:00 03/18/17 08:59 03/12/17 10:08 Metoprolol Succinate (Toprol XL) 50 mg DAILY ORAL 03/12/17 09:00 04/07/17 08:59 03/12/17 10:08 Metronidazole (Flagyl) 500 mg Q8HR ORAL 03/11/17 15:00 03/18/17 14:59 03/12/17 05:26 Olanzapine (ZyPREXA) 10 mg BEDTIME ORAL 03/11/17 21:00 04/05/17 20:59 03/11/17 22:08 Mike Nguyen M.D. Mar 12, 2017 14:48
[2017-03-12 16:00] VITALS: BP 136/96
--- NOTE | 2017-03-12 17:00 | Cardiac Electrophysiology PN ---
Assessment/Plan Status Narrative Left ventricular ejection fraction estimated to be 35- 40%. No evidenceof left ventricular hypertrophy . Small hemodynamically insignificant plural effusion. . Mild bi- atrial enlargement. Thickened mitral valve leaflets with normal excursion. Mitral annulus and aortic root calcification. Normal pulmonic valve structure. Normal tricuspid valve structure. IVC dilated at 3.1 cm with physiologic collapse suggestive of increased RA pressure. Assessment/Plan 1. Acute on chronic systolic and diastolic congestive heart failure with EF 35- 40%, on Lasix 40 po daily and Toprol XL 50. 2. Troponin leak.Levels flat and has no chest pain. Couldn't get the stress test done due to noncompliance and lack of consent. On Aspirin, Toprol and Lipitor 40 po qhs. In SR with PACs and PVCs. 3. HTN On Toprol 50 mg po daily and Lasix 4. Hypomagnesemia. 5. Severe protein-calorie malnutrition. 6. AMS DW RN Subjective Subjective No chest pain or SOB.Sitter at bedside.Pleasantly confused awaiting placement. Objective Last 24 Hour Vital Signs Date Time Temp Pulse Resp B/P (MAP) Pulse Ox O2 Delivery O2 Flow Rate FiO2 03/12/17 10:08 84 153/92 03/12/17 07:51 Nasal Cannula 3.0 32 03/12/17 07:51 96 Nasal Cannula 3.0 32 03/12/17 07:50 84 18 Nasal Cannula 3.0 32 03/12/17 04:00 97.5 90 22 153/92 97 03/12/17 00:00 97.5 77 20 140/77 96 03/11/17 21:07 79 18 Room Air 21 03/11/17 21:07 95 Room Air 21 03/11/17 21:07 Room Air 21 03/11/17 20:00 97.0 93 22 146/99 93 Intake and Output 03/11/17 03/12/17 19:00 07:00 Intake Total 560 ml Balance 560 ml Intake Oral 560 ml # Voids 8 3 # Bowel Movements 7 3 Objective HEENT: No JVD LUNGS: Coarse Rhonchi HEART: Regular rhythm and rate. Normal S1 and S2. ABDOMEN: Soft. EXTREMITIES: no edema. ZANA CHINCHILLA Mar 12, 2017 17:00
--- NOTE | 2017-03-12 17:01 | Pulmonology Progress Note ---
Assessment/Plan Assessment/Plan IMPRESSION: 1. Acute myocardial ischemia. 2. 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 3. Chronic obstructive pulmonary disease. 4. Moderate protein-calorie malnutrition. 5. Prerenal azotemia. 6. Metabolic encephalopathy. 7. Groin abscesses. 8. Hypertensive heart disease 9. 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 Antimicrobials. 2. Bronchodilators. 3. anticoagulants - change to PO soon 4. Diuretic therapy. 6. Titration of antihypertensives. 7. Continue aspirin prophylaxis. Subjective Interval Events: None Constitutional: Reports: no symptoms HEENT: Repors: no symptoms Respiratory: Reports: no symptoms Cardiovascular: Reports: no symptoms Allergies: Coded Allergies: No Known Allergies (Unverified , 02/28/17) Objective Last 24 Hour Vital Signs Date Time Temp Pulse Resp B/P (MAP) Pulse Ox O2 Delivery O2 Flow Rate FiO2 03/12/17 10:08 84 153/92 03/12/17 07:51 Nasal Cannula 3.0 32 03/12/17 07:51 96 Nasal Cannula 3.0 32 03/12/17 07:50 84 18 Nasal Cannula 3.0 32 03/12/17 04:00 97.5 90 22 153/92 97 03/12/17 00:00 97.5 77 20 140/77 96 03/11/17 21:07 79 18 Room Air 21 03/11/17 21:07 95 Room Air 21 03/11/17 21:07 Room Air 21 03/11/17 20:00 97.0 93 22 146/99 93 Intake and Output 03/11/17 03/12/17 19:00 07:00 Intake Total 560 ml Balance 560 ml Intake Oral 560 ml # Voids 8 3 # Bowel Movements 7 3 General Appearance: no acute distress HEENT: normocephalic Respiratory/Chest: chest wall non-tender, lungs clear Cardiovascular: normal peripheral pulses, normal rate Current Medications Medications (Trade) Dose Ordered Sig/Vicky Route PRN Reason Start Time Stop Time Status Last Admin Dose Admin Aspirin (ASA) 81 mg DAILY ORAL 03/12/17 09:00 03/31/17 13:14 03/12/17 10:07 Atorvastatin Calcium (Lipitor) 40 mg BEDTIME ORAL 03/11/17 21:00 04/08/17 20:59 03/11/17 22:09 Clotrimazole (Lotrimin) 1 applic EVERY 12 HOURS TOPIC 03/11/17 21:00 03/31/17 20:59 03/11/17 21:00 Divalproex Sodium (Depakote) 500 mg EVERY 12 HOURS ORAL 03/11/17 21:00 04/05/17 20:59 03/12/17 10:08 Enoxaparin Sodium (Lovenox) 80 mg Q12HR SUBQ 03/11/17 21:00 04/03/17 19:29 03/12/17 10:09 Metoprolol Succinate (Toprol XL) 50 mg DAILY ORAL 03/12/17 09:00 04/07/17 08:59 03/12/17 10:08 Olanzapine (ZyPREXA) 10 mg BEDTIME ORAL 03/11/17 21:00 04/05/17 20:59 03/11/17 22:08 López Schofield MD Mar 12, 2017 17:01
[2017-03-12 20:00] VITALS: BP 123/76
[2017-03-12] MEDS: Atorvastatin 20mg tab ORAL SCH (22:12)
[2017-03-13] VITALS: BP 129/91
--- NOTE | 2017-03-13 03:00 | Progress Note ---
DATE: 03/12/2017 CARDIOLOGY PROGRESS NOTE SUBJECTIVE: The patient was seen and evaluated. Case discussed with lpn rn, Dr. Umanzor. The patient remains in sinus rhythm. No respiratory distress. No chest pain. OBJECTIVE: VITAL SIGNS: Blood pressure 153/92, pulse 84, respiratory rate 18. NECK: Supple. LUNGS: Clear. CARDIAC: Regular rhythm and rate. Normal S1, S2. A 1/6 systolic murmur at apex. ABDOMEN: Soft. EXTREMITIES: Trace edema. DIAGNOSTIC DATA: Echocardiogram with ejection fraction of 35% to 40%. IMPRESSION: 1. Chronic ischemic heart disease. 2. Acute and chronic diastolic and systolic congestive heart failure. 3. Degenerative valve disease. 4. Dementia with agitation. 5. Hypomagnesemia. PLAN: 1. Medical therapy. 2. Unable to proceed with stress test due to inability for informed consent. 3. Maximize anti-failure regimen and continue antianginal, anti-platelet, and anti-lipid drugs without change. Rehan Grove M.D. DR: Rao JOB#: [id number] CC:
[2017-03-13 04:27] VITALS: BP 128/84
[2017-03-13 08:16] VITALS: BP 140/90
[2017-03-13] MEDS ORDERED: Lisinopril 20mg tab ORAL SCH (09:00)
[2017-03-13] MEDS: Aspirin Baby 81mg ORAL SCH (09:47)
[2017-03-13] MEDS: Depakote 500mg tab ORAL SCH (09:47)
[2017-03-13] MEDS: Metoprolol Succinate XL 50mg tab ORAL SCH (09:47)
[2017-03-13] MEDS: Enoxaparin 80mg Inj SUBQ SCH (09:50)
--- NOTE | 2017-03-13 09:58 | Pulmonology Progress Note ---
Assessment/Plan Assessment/Plan IMPRESSION: 1. Acute myocardial ischemia. 2. 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 3. Chronic obstructive pulmonary disease. 4. Moderate protein-calorie malnutrition. 5. Prerenal azotemia. 6. Metabolic encephalopathy. 7. Groin abscesses. 8. Hypertensive heart disease 9. 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 Antimicrobials. 2. Bronchodilators. 3. anticoagulants 4. Diuretic therapy. 6. Titration of antihypertensives. 7. Continue aspirin prophylaxis. Subjective Interval Events: None Constitutional: Reports: no symptoms HEENT: Repors: no symptoms Respiratory: Reports: no symptoms Cardiovascular: Reports: no symptoms Allergies: Coded Allergies: No Known Allergies (Unverified , 02/28/17) Objective Last 24 Hour Vital Signs Date Time Temp Pulse Resp B/P (MAP) Pulse Ox O2 Delivery O2 Flow Rate FiO2 03/13/17 09:48 140/90 03/13/17 09:47 89 140/90 03/13/17 08:16 97.2 89 18 140/90 96 Nasal Cannula 3.0 03/13/17 04:27 97.0 72 20 128/84 93 Nasal Cannula 3.0 03/13/17 04:00 Nasal Cannula 3.0 03/13/17 00:00 Nasal Cannula 3.0 03/13/17 00:00 96.4 78 20 129/91 100 Nasal Cannula 3.0 03/12/17 21:23 95 Nasal Cannula 3.0 32 03/12/17 21:23 80 18 Nasal Cannula 3.0 32 03/12/17 21:23 Nasal Cannula 3.0 32 03/12/17 20:00 96.4 92 22 123/76 92 Nasal Cannula 3.0 03/12/17 20:00 Nasal Cannula 3.0 03/12/17 16:00 96.7 67 21 136/96 98 03/12/17 12:00 97.0 64 21 151/67 98 03/12/17 10:08 84 153/92 Intake and Output 03/12/17 03/13/17 19:00 07:00 Output Total 300 ml 200 ml Balance -300 ml -200 ml Output Urine Total 300 ml 200 ml # Voids 2 # Bowel Movements 1 1 General Appearance: no acute distress HEENT: normocephalic Respiratory/Chest: chest wall non-tender, lungs clear Cardiovascular: normal peripheral pulses, normal rate Current Medications Medications (Trade) Dose Ordered Sig/Vicky Route PRN Reason Start Time Stop Time Status Last Admin Dose Admin Aspirin (ASA) 81 mg DAILY ORAL 03/12/17 09:00 03/31/17 13:14 03/13/17 09:47 Atorvastatin Calcium (Lipitor) 40 mg BEDTIME ORAL 03/11/17 21:00 04/08/17 20:59 03/12/17 22:12 Clotrimazole (Lotrimin) 1 applic EVERY 12 HOURS TOPIC 03/11/17 21:00 03/31/17 20:59 03/11/17 21:00 Divalproex Sodium (Depakote) 500 mg EVERY 12 HOURS ORAL 03/11/17 21:00 04/05/17 20:59 03/13/17 09:47 Enoxaparin Sodium (Lovenox) 80 mg Q12HR SUBQ 03/11/17 21:00 04/03/17 19:29 03/13/17 09:50 Lisinopril (Prinivil) 20 mg DAILY ORAL 03/13/17 09:00 04/12/17 08:59 03/13/17 09:48 Metoprolol Succinate (Toprol XL) 50 mg DAILY ORAL 03/12/17 09:00 04/07/17 08:59 03/13/17 09:47 Olanzapine (ZyPREXA) 10 mg BEDTIME ORAL 03/11/17 21:00 04/05/17 20:59 03/12/17 22:12 López Schofield MD Mar 13, 2017 09:58
--- NOTE | 2017-03-13 11:16 | General Progress Note ---
Assessment/Plan Status: stable Assessment/Plan schizoaffective d/o agitation -cont current meds Subjective Date patient seen: Mar 13, 2017 Neurologic/Psychiatric: Reports: anxiety Allergies: Coded Allergies: No Known Allergies (Unverified , 02/28/17) Subjective the pt has episodes of restlessness and agitation Objective Last 24 Hour Vital Signs Date Time Temp Pulse Resp B/P (MAP) Pulse Ox O2 Delivery O2 Flow Rate FiO2 03/13/17 09:48 140/90 03/13/17 09:47 89 140/90 03/13/17 09:36 Nasal Cannula 3.0 32 03/13/17 09:36 95 Nasal Cannula 3.0 32 03/13/17 08:16 97.2 89 18 140/90 96 Nasal Cannula 3.0 03/13/17 04:27 97.0 72 20 128/84 93 Nasal Cannula 3.0 03/13/17 04:00 Nasal Cannula 3.0 03/13/17 00:00 Nasal Cannula 3.0 03/13/17 00:00 96.4 78 20 129/91 100 Nasal Cannula 3.0 03/12/17 21:23 95 Nasal Cannula 3.0 32 03/12/17 21:23 80 18 Nasal Cannula 3.0 32 03/12/17 21:23 Nasal Cannula 3.0 32 03/12/17 20:00 96.4 92 22 123/76 92 Nasal Cannula 3.0 03/12/17 20:00 Nasal Cannula 3.0 03/12/17 16:00 96.7 67 21 136/96 98 03/12/17 12:00 97.0 64 21 151/67 98 Intake and Output 03/12/17 03/13/17 19:00 07:00 Output Total 300 ml 200 ml Balance -300 ml -200 ml Output Urine Total 300 ml 200 ml # Voids 2 # Bowel Movements 1 1 Height (Feet): 5 Height (Inches): 7.00 Weight (Pounds): 218 General Appearance: no apparent distress, alert Neurologic: alert, oriented x 3, responsive, depressed affect Saul Munguia M.D. Mar 13, 2017 11:16
[2017-03-13 11:58] VITALS: BP 132/87
--- NOTE | 2017-03-13 12:52 | Infectious Diseases Prog Note ---
Assessment/Plan Problems: (1) Abscess of groin, left Assessment & Plan: improved on vancomycin, cefepime and metronidazol empirically, with antifungal topical , culture of the wound grew serratia licquifance, klebsiella pneumonia , and streptococcus group G , already received two weeks of iv antibiotics , continue local wound care , as per wound care service . monitor off antibiotics (2) Abscess of groin, right Assessment & Plan: management the same as above (3) HCAP (healthcare-associated pneumonia) Assessment & Plan: improved on vancomycin and cefepime empirically , monitor off antibiotics . monitor CXR (4) CHF (congestive heart failure) Assessment & Plan: with acute exacerbation , continue diuresis , monitor out put and daily weight (5) Hypoglycemia Assessment & Plan: resolved, monitor glucose level closely (6) Agitated Assessment & Plan: resume psych meds , psychiatrist is following Subjective Constitutional: Reports: no symptoms HEENT: Reports: no symptoms Respiratory: Reports: no symptoms Breasts: Reports: no symptoms Cardiovascular: Reports: no symptoms Gastrointestinal/Abdominal: Reports: no symptoms Genitourinary: Reports: no symptoms Neurologic: Reports: no symptoms Psychiatric: Reports: no symptoms Skin: Reports: no symptoms Endocrine: Reports: no symptoms Hematologic: Reports: no symptoms Musculoskeletal: Reports: no symptoms Allergies: Coded Allergies: No Known Allergies (Unverified , 02/28/17) Subjective he was in bed, getting cleaned up , comfortable, with jerking movements of the head and the shoulders, no fever or chills, no SOB Objective Vital Signs Last 24 Hour Vital Signs Date Time Temp Pulse Resp B/P (MAP) Pulse Ox O2 Delivery O2 Flow Rate FiO2 03/13/17 11:58 97.5 75 18 132/87 97 03/13/17 09:48 140/90 03/13/17 09:47 89 140/90 03/13/17 09:36 Nasal Cannula 3.0 32 03/13/17 09:36 95 Nasal Cannula 3.0 32 03/13/17 08:16 97.2 89 18 140/90 96 Nasal Cannula 3.0 03/13/17 04:27 97.0 72 20 128/84 93 Nasal Cannula 3.0 03/13/17 04:00 Nasal Cannula 3.0 03/13/17 00:00 Nasal Cannula 3.0 03/13/17 00:00 96.4 78 20 129/91 100 Nasal Cannula 3.0 03/12/17 21:23 95 Nasal Cannula 3.0 32 03/12/17 21:23 80 18 Nasal Cannula 3.0 32 03/12/17 21:23 Nasal Cannula 3.0 32 03/12/17 20:00 96.4 92 22 123/76 92 Nasal Cannula 3.0 03/12/17 20:00 Nasal Cannula 3.0 03/12/17 16:00 96.7 67 21 136/96 98 Height (Feet): 5 Height (Inches): 7.00 Weight (Pounds): 218 General Appearance: WD/WN, no acute distress HEENT: normocephalic, atraumatic, anicteric, mucous membranes moist, PERRL Respiratory/Chest: chest wall non-tender, lungs clear, normal breath sounds, no respiratory distress, no accessory muscle use Cardiovascular: normal peripheral pulses, normal rate, regular rhythm, no gallop/murmur, no JVD Abdomen: normal bowel sounds, soft, non tender, no organomegaly, non distended , no mass, no scars Extremities: no cyanosis, no clubbing Skin: no rash, no lesions, no ulcers Neurologic/Psychiatric: alert, responsive Current Medications Medications (Trade) Dose Ordered Sig/Vicky Route PRN Reason Start Time Stop Time Status Last Admin Dose Admin Aspirin (ASA) 81 mg DAILY ORAL 03/12/17 09:00 03/31/17 13:14 03/13/17 09:47 Atorvastatin Calcium (Lipitor) 40 mg BEDTIME ORAL 03/11/17 21:00 04/08/17 20:59 03/12/17 22:12 Clotrimazole (Lotrimin) 1 applic EVERY 12 HOURS TOPIC 03/11/17 21:00 03/31/17 20:59 03/13/17 10:38 Divalproex Sodium (Depakote) 500 mg EVERY 12 HOURS ORAL 03/11/17 21:00 04/05/17 20:59 03/13/17 09:47 Enoxaparin Sodium (Lovenox) 80 mg Q12HR SUBQ 03/11/17 21:00 04/03/17 19:29 03/13/17 09:50 Lisinopril (Prinivil) 20 mg DAILY ORAL 03/13/17 09:00 04/12/17 08:59 03/13/17 09:48 Metoprolol Succinate (Toprol XL) 50 mg DAILY ORAL 03/12/17 09:00 04/07/17 08:59 03/13/17 09:47 Olanzapine (ZyPREXA) 10 mg BEDTIME ORAL 03/11/17 21:00 04/05/17 20:59 03/12/17 22:12 Mike Nguyen M.D. Mar 13, 2017 12:52
[2017-03-13 15:55] VITALS: BP 132/91
--- NOTE | 2017-03-13 16:00 | Progress Note ---
DATE: 03/13/2016 SUBJECTIVE: The patient is resting in bed and is still having anxiety and episodes of agitation, however, it is much improved. No agitation during my evaluation. MENTAL STATUS EXAMINATION: The patient is alert and oriented times self, place, and situation he is in. Mood is neutral. Affect is flat. Congruent with mood. Thought process is linear. Thought content, no suicidal or homicidal ideations. ASSESSMENT: 1. Agitation and encephalopathy, resolved. 2. Schizoaffective disorder. PLAN: 1. The patient will be continued on olanzapine 10 mg at bedtime and Depakote 500 mg b.i.d. now. 2. We will continue to follow and readjust the medications. Saul Munguia M.D. DR: NIDHI JOB#: [id number] CC:
--- NOTE | 2017-03-13 17:26 | Cardiac Electrophysiology PN ---
Assessment/Plan Status Narrative Left ventricular ejection fraction estimated to be 35- 40%. No evidenceof left ventricular hypertrophy . Small hemodynamically insignificant plural effusion. . Mild bi- atrial enlargement. Thickened mitral valve leaflets with normal excursion. Mitral annulus and aortic root calcification. Normal pulmonic valve structure. Normal tricuspid valve structure. IVC dilated at 3.1 cm with physiologic collapse suggestive of increased RA pressure. Assessment/Plan 1. Acute on chronic systolic and diastolic congestive heart failure with EF 35- 40%, on Lasix 40 po daily and Toprol XL 50. 2. Troponin leak.Levels flat and has no chest pain. Couldn't get the stress test done due to noncompliance and lack of consent. On Aspirin, Toprol and Lipitor 40 po qhs. In SR . 3. HTN On Toprol 50 mg po daily and Lasix 4. Hypomagnesemia. 5. Severe protein-calorie malnutrition. 6. AMS DW RN Subjective Subjective No chest pain or SOB.Sitter at bedside.Pleasantly confused. No events Objective Last 24 Hour Vital Signs Date Time Temp Pulse Resp B/P (MAP) Pulse Ox O2 Delivery O2 Flow Rate FiO2 03/13/17 15:55 98.2 70 20 132/91 96 03/13/17 11:58 97.5 75 18 132/87 97 03/13/17 09:48 140/90 03/13/17 09:47 89 140/90 03/13/17 09:36 Nasal Cannula 3.0 32 03/13/17 09:36 95 Nasal Cannula 3.0 32 03/13/17 08:16 97.2 89 18 140/90 96 Nasal Cannula 3.0 03/13/17 04:27 97.0 72 20 128/84 93 Nasal Cannula 3.0 03/13/17 04:00 Nasal Cannula 3.0 03/13/17 00:00 Nasal Cannula 3.0 03/13/17 00:00 96.4 78 20 129/91 100 Nasal Cannula 3.0 03/12/17 21:23 95 Nasal Cannula 3.0 32 03/12/17 21:23 80 18 Nasal Cannula 3.0 32 03/12/17 21:23 Nasal Cannula 3.0 32 03/12/17 20:00 96.4 92 22 123/76 92 Nasal Cannula 3.0 03/12/17 20:00 Nasal Cannula 3.0 Intake and Output 03/12/17 03/13/17 19:00 07:00 Output Total 300 ml 200 ml Balance -300 ml -200 ml Output Urine Total 300 ml 200 ml # Voids 2 # Bowel Movements 1 1 Objective HEENT: No JVD LUNGS: Coarse Rhonchi HEART: Regular rhythm and rate. Normal S1 and S2. ABDOMEN: Soft. EXTREMITIES: no edema. ZANA CHINCHILLA Mar 13, 2017 17:26
[2017-03-13] MEDS ORDERED: PPD Tuberculin Skin Test 5TU IDERMAL ONE (18:00)
[2017-03-13] MEDS ORDERED: ASPIRIN81 MG ORAL (18:58)
[2017-03-13] MEDS ORDERED: ASPIRIN81 M3 PO (18:58)
[2017-03-13] MEDS ORDERED: LISINOPRIL20 MG ORAL (18:59)
[2017-03-13] MEDS ORDERED: METOPROLOL SUCC50 MG ORAL (18:59)
--- NOTE | 2017-03-14 04:15 | Progress Note ---
DATE: 03/13/2017 CARDIOLOGY PROGRESS NOTE SUBJECTIVE: Discharge planning noted. The patient without respiratory distress. OBJECTIVE: VITAL SIGNS: Blood pressure 132/87, pulse 75, and respirations 18. LUNGS: Few rhonchi. HEART: Regular rhythm and rate. Normal S1 and S2. ABDOMEN: Soft. EXTREMITIES: Trace edema. IMPRESSION: 1. Acute myocardial infarction. 2. 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 3. Severe protein-calorie malnutrition. 4. Dehydration. 5. Hyponatremia. 6. Contraction alkalosis. 7. Hypomagnesemia. PLAN: 1. Medical therapy including beta-hussein, aspirin, and statin drug. 2. Replace electrolytes. 3. Maintenance diuretic therapy. 4. No current plan for stress test. 5. Medical management is appropriate at this time unless the patient's clinical condition deteriorates. Rehan Grove M.D. DR: ROCAEL JOB#: [id number] CC:
--- NOTE | 2017-03-15 16:45 | Discharge Summary 2 SIG ---
DATE OF ADMISSION: 02/28/2017 DATE OF DISCHARGE: 03/13/2017 CONSULTANTS: 1. Rigo Rodrigez M.D. 2. Rehan Grove M.D. 3. Mike Nguyen M.D. 4. Mike Oneil M.D. 5. Saul Munguia M.D. 6. López Schofield M.D. BRIEF HOSPITAL COURSE: The patient is a 76-year-old male, who was brought in by EMS for "acting strange for 1 month" per residents. He was found to be hypoglycemic on the scene. Blood sugar was 50. He was noted to have continual jerking of the head to the right side and twitching of whole body, but is redirectable with answering questions. The patient has an unknown medical history. On evaluation at ED, there were no focal neurologic deficits to suggest CVA. Hypoglycemia resolved with D50. He had bilateral 3+ edema on the lower extremities. Chest x-ray showed cardiomegaly with interstitial and patchy bilateral opacities and right small pleural effusion. Head CT of the brain was motion degraded with atrophy and nonspecific periventricular hypoattenuation suggestive of chronic ischemic microvascular changes, but there was no evidence of acute abnormalities detected. EKG was in normal sinus rhythm. No PVCs. He had bilateral rales on exam. He was initially placed on BiPAP and was started on IV Lasix. Initial troponin was 0.298. He was then admitted to [facility]. He underwent neurological evaluation with Dr. Rodrigez. The patient with evidence of choreoathetosis, unknown etiology. Recommended MRI of the brain to be done. Venous duplex of lower extremity showed recanalized chronic thrombus bilaterally. Dr. Nguyen was consulted as the patient had bilateral groin infection with abscess and has possible pneumonia. He was started on vancomycin and cefepime, and was given antifungal topical for local wound care. Flagyl was added for anaerobic coverage. Cardiac troponins were monitored. He was recommended to undergo stress test, however, unable, due to lack of consent and the patient's noncompliance. He was given aspirin, Toprol-XL 50, and Lipitor 40 mg nightly. BNP was elevated. Echocardiogram done showed EF 35% to 40% with mild global left ventricular hypokinesis and PASP of 65 consistent with severe pulmonary hypertension. He was given Lasix for diuresis and fluid restriction. The patient has agitation with disorganized speech and was placed on one-to-one sitter. He was diagnosed with schizoaffective disorder and was placed on Depakote and Zyprexa. Wound culture showed growth of Serratia, Klebsiella, and Streptococcus group G. The patient received two weeks of vancomycin, cefepime, and metronidazole empirically. He was taken off antibiotic treatment and was eventually discharged to an assisted living. FINAL DIAGNOSES: 1. 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 2. Abscess on the groin bilaterally. 3. Healthcare-associated pneumonia. 4. Hypoglycemia. 5. Agitation. 6. Acute myocardial infarction. 7. Severe protein-calorie malnutrition. 8. Dehydration. 9. Hyponatremia . 10. Hypomagnesemia. 11. Agitation and encephalopathy, resolved. 12. Schizoaffective disorder. DISPOSITION: The patient was discharged to board and care. DISCHARGE MEDICATIONS: Refer to medication list. DISCHARGE INSTRUCTIONS: Follow up with PMD in a week. Phillip Galaviz M.D. I have been assigned to dictate discharge summary on this account and I was not involved in the patient's management. Evangelina Blevins N.P. DR: TATIANNA JOB#: [id number] CC: MARCELLUS
== END 2017-03-13 19:00 | DRG 194 ==
LOC: EDBD 15:30 → EMR 16:01 → 2W 16:20 → EDBEDREQSVC 16:39 → EDBEDREQ 16:40 → 2E 03-08 07:08 → 4E 03-11 14:30
DX: I11.0 Hypertensive heart disease with heart failure (principal); I21.9 Acute myocardial infarction, unspecified; E43 Unspecified severe protein-calorie malnutrition; G93.41 Metabolic encephalopathy; J18.9 Pneumonia, unspecified organism; E87.3 Alkalosis; E11.649 Type 2 diabetes mellitus with hypoglycemia without coma; I82.513 Chronic embolism and thrombosis of femoral vein, bilateral; F01.50 Vascular dementia, unspecified severity, without behavioral disturbance, psychotic disturbance, mood disturbance, and anxiety; L02.214 Cutaneous abscess of groin; I50.43 Acute on chronic combined systolic (congestive) and diastolic (congestive) heart failure; L02.818 Cutaneous abscess of other sites; J44.0 Chronic obstructive pulmonary disease with (acute) lower respiratory infection; N48.5 Ulcer of penis; F32.9 Major depressive disorder, single episode, unspecified; F25.9 Schizoaffective disorder, unspecified; G25.5 Other chorea; Z68.34 Body mass index [BMI] 34.0-34.9, adult; Z91.19 Patient's noncompliance with other medical treatment and regimen; E87.1 Hypo-osmolality and hyponatremia; E86.0 Dehydration
CPT/HCPCS: 36415; 36600; 70450; 71010; 80048; 80053; 80202; 80307; 81003; 82550; 82553; 82803; 82962; 83735; 83880; 84100; 84484; 85007; 85025; 86580; 87040; 87070; 87081; 87181; 87205; 93005; 93306; 93970; 94664; 94760; J8499